=== PATIENT | male | born 1945 | race Caucasian/White ===

== ENCOUNTER 2022-12-01 10:02 | Emergency (ER) | payer BC ==
[~2022-12-01] VITALS: Ht 167.6 cm; Wt 71.5 kg
[2022-12-01] MEDS ORDERED: cloNIDine HCL 0.1 MG TAB PO ONE (10:15)
[2022-12-01 10:47] VITALS: RESP 18; TEMP 97.6
[2022-12-01 11:35] VITALS: BP 176/84; PULSE 52; O2SAT 97
[2022-12-01] MEDS ORDERED: AMOX875T4 PO (11:39)
== END 2022-12-01 11:46 | disposition home or self-care (01) ==
LOC: ER 10:02
DX: H66.91 Otitis media, unspecified, right ear (principal); I10 Essential (primary) hypertension; E78.5 Hyperlipidemia, unspecified; F17.210 Nicotine dependence, cigarettes, uncomplicated

== ENCOUNTER 2023-10-12 07:05 | Emergency (ER) | payer BC ==
[~2023-10-12] VITALS: Ht 167.6 cm; Wt 71.8 kg
[~2023-10-12 07:05] MED LIST: AMOX875T4 PO
[2023-10-12 08:56] LABS: Rapid Influenza A Negative (Negative); Rapid Influenza B Negative (Negative)
[2023-10-12 09:10] VITALS: BP 155/83; PULSE 55; RESP 16; TEMP 97.9; O2SAT 96
[2023-10-12 09:14] LABS: Rapid Strep A Screen-Throat Negative
[2023-10-12 09:15] LABS: Chloride 107 mmol/L (98-107); Potassium 3.3 mmol/L (3.5-5.1); Sodium 143 mmol/L (136-145)
[2023-10-12 09:15] LABS: COVID19 ANTIGEN SOFIA FIA NEGATIVE (NEGATIVE)
[2023-10-12 09:16] LABS: Anion Gap 5 (5-15); Calcium 10.1 mg/dL (8.5-10.1); Carbon Dioxide 31 mmol/L (20-30)
[2023-10-12 09:20] LABS: Basophils # (auto) 0 10 ^3/uL (0-0.2); Basophils % (auto) 0.6 % (0.0-2.0); Eosinophils # (auto) 0.1 10 ^3/uL (0-0.8); Eosinophils % (auto) 1.8 % (0.0-7.0); Hematocrit 43.2 % (41.0-53.0); Hemoglobin 15.4 g/dL (13.5-17.5); Lymphocytes # (auto) 1.2 10 ^3/uL (0.4-5.4); Lymphocytes % (auto) 21.7 % (10.0-50.0); Mean Corpuscular Hemoglobin 32.9 pg (28.0-32.0); Mean Corpuscular Hgb Conc. 35.6 g/dL (32.0-36.0); Mean Corpuscular Volume 92.5 fL (80.0-100.0); Monocytes # (auto) 0.4 10 ^3/uL (0-1.3); Monocytes % (auto) 6.7 % (0.0-12.0); Neutrophils # (auto) 3.7 10 ^3/uL (1.6-8.6); Neutrophils % (auto) 69.2 % (37.0-80.0); Nucleated Red Blood Cells % 0.1 %; Red Blood Cells 4.67 10^6/uL (4.5-5.90); Red Cell Distribution Width 13.8 % (11.8-14.3); White Blood Cell 5.4 10^3/uL (4.4-10.8)
[2023-10-12 09:21] LABS: BUN/Creatinine Ratio 9.4 (10.0-20.0); Blood Urea Nitrogen 13 mg/dL (9-23); Glucose 101 mg/dL (74-106)
[2023-10-12] MEDS ORDERED: PRED20TA2 PO (09:36)
[2023-10-12] MEDS ORDERED: AUG875T PO (09:36)
[2023-10-12] MEDS: POTASSIUM CHL 20 Meq TABLET PO ONE (09:46)
[2023-10-12] MEDS: cefTRIAXone SOD 1,000 MG VL IM ONE (09:46)
== END 2023-10-12 09:47 | disposition home or self-care (01) ==
LOC: ER 07:05
DX: J01.90 Acute sinusitis, unspecified (principal); J20.9 Acute bronchitis, unspecified; J03.90 Acute tonsillitis, unspecified; E78.5 Hyperlipidemia, unspecified; I10 Essential (primary) hypertension; F17.210 Nicotine dependence, cigarettes, uncomplicated; Z20.822 Contact with and (suspected) exposure to COVID-19
CPT/HCPCS: 36415; 71046; 80048; 85025; 87070; 87426; 87804; 87880; 96372; 99284; J0696

== ENCOUNTER 2024-03-04 07:33 | Inpatient (IN) | payer MEDICARE, BC ==
[~2024-03-04] VITALS: Ht 167.6 cm; Wt 70.0 kg
[~2024-03-04 07:33] MED LIST changes: +AUG875T PO; +CHOL500046 PO; +METO25TA93 PO; +POTA-36 PO; +PRED20TA2 PO
--- NOTE | 2024-03-04 07:57 | ED.PDOC ---
HPI Comments 78-year-old male presents with a chief complaint of lightheadedness and shakiness s/p HTN. Patient states that for the past x 3 weeks his BP has been fluctuating from high to low and he has been feeling lightheaded from it. Patient reports that he took x 2 of his 100mg Hydralazine this morning at 0600 and it dropped his BP from 200 systolic to 194 systolic. Patient also mentions that he has been taking more of his clonidine. Patient denies any active chest pain at this time or any pain. No other symptoms or modifying factors present at this time. Chief Complaint: High Blood Pressure Time Seen by MD: 07:48 Primary Care Provider: JONAH Alonso Notes: Medications, Allergies Allergies: Coded Allergies: No Known Drug Allergy (Verified Allergy, Unknown, 12/01/22) Home Meds Active Scripts Prednisone (Prednisone) 20 Mg Tab, 60 MG PO DAILY, #15 TAB Prov:JANNETH ALLAN 10/12/23 Amoxicillin & Pot Clavulanate (AUGMENTIN TABLET) 875 Mg Tb, 875 MG PO BID, #20 TAB Prov:JANNETH ALLAN 10/12/23 Amoxicillin & Pot Clavulanate (Amoxicillin/Potassium Cla) 875 Mg Tab, 1 TAB PO BID, #20 TAB Prov:JANNETH ALLAN 12/01/22 Information Source: Patient Mode of Arrival: Ambulatory Severity: Moderate Timing: Days Duration: Intermittent Prehospital treatment: None Cardiac Risk Factors: HTN PE Risk Factors: None History of: None Past Medical History PAST MEDICAL HISTORY: High Lipids, HTN Surgical History: Denies all surgeries Family History Family History: Reviewed,noncontributory to illness, Family hx of DM, Family hx of Cancer Social History Smoker: Cigarettes Alcohol: Occasionally Drugs: Denies Drug Use Lives In: Home Constitutional: denies: chills, diaphoresis, fatigue, fever, malaise, sweats, weakness, others EENTM: denies: blurred vision, double vision, ear bleeding, ear discharge, ear drainage, ear pain, ear ringing, eye pain, eye redness, hearing loss, mouth pain, mouth swelling, nasal discharge, nose bleeding, nose congestion, nose pain, photophobia, tearing, throat pain, throat swelling, voice changes, others Respiratory: denies: cough, hemoptysis, orthopnea, SOB at rest, shortness of breath, SOB with excertion, stridor, wheezing, others Cardiovascular: reports: lightheadedness; denies: chest pain, dizzy spells, diaphoresis, Dyspnea on exertion, edema, irregular heart beat, left arm pain, palpitations, PND, syncope, others Gastrointestinal: denies: abdomen distended, abdominal pain, blood streaked bowels, constipated, diarrhea, dysphagia, difficulty swallowing, hematemesis, melena, nausea, poor appetite, poor fluid intake, rectal bleeding, rectal pain, vomiting, others Genitourinary: denies: burning, dysuria, flank pain, frequency, hematuria, incontinence, penile discharge, penile sore, pain, testicle pain, testicle swelling, urgency, others Neurological: denies: dizziness, fainting, headache, left sided numbness, left sided weakness, numbness, paresthesia, pre-existing deficit, right sided numbness, right sided weakness, seizure, speech problems, tingling, tremors, weakness, others Musculoskeletal: denies: back pain, gout, joint pain, joint swelling, muscle pain, muscle stiffness, neck pain, others Integumetry: denies: bruises, change in color, change in hair/nails, dryness, laceration, lesions, lumps, rash, wounds, others Allergic/Immunocompromised: denies: Difficulty Healing, Frequent Infections, Hives, Itching, others Hematologic/Lymphatic: denies: anemia, blood clots, easy bleeding, easy bruising, swollen glands, others Endocrine: denies: excessive hunger, excessive sweating, excessive thirst, excessive urination, flushing, intolerance to cold, intolerance to heat, unexplained weight gain, unexplained weight loss, others Psychiatric: denies: anxiety, bipolar disorder, depression, hopeless, panic disorder, schizophrenia, sleepless, suicidal, others All Other Systems: Reviewed and Negative Physical Exam General Appearance: No Apparent Distress, Normal HEENT: Normal ENT Inspection, Pharynx Normal, TMs Normal Neck: Full Range of Motion, Non-Tender, Normal, Normal Inspection Respiratory: Chest Non-Tender, Lungs Clear, No Accessory Muscle Use, No Respiratory Distress, Normal Breath Sounds Cardiovascular: No Edema, No JVD, No Murmur, No Gallop, Normal Peripheral Pulses, Regular Rate/Rhythm Breast Exam: Deferred Gastrointestinal: No Organomegaly, Non Tender, No Pulsatile Mass, Normal Bowel Sounds, Soft Genitalia: Deferred Pelvic: Deferred Rectal: Deferred Extremities: No calf tenderness, Normal capillary refill, Normal inspection, Normal range of motion, Non-tender, No pedal edema Musculoskeletal : Apperance: Normal Neurologic: Alert, manager balance II-XII nml as Tested, No Motor Deficits, Normal Affect, Normal Mood, No Sensory Deficits Cerebellar Function: Normal Reflexes: Normal Skin: Dry, Normal Color, Warm Lymphatic: No Adenopathy Was a procedure done? Was a procedure done?: No CP Differential Dx Differential Diagnosis: Electrolyte Disorder, Heart Failure, MAT, PAC's, PVC's, V-Tach, WPW Differential Diagnosis: HTN Essential, HTN Accelerated Differential Diagnosis: Gastritis, Myocardial Infarction, Pericarditis, Pneu monia X-Ray, Labs, Meds, VS Vital Signs Date Time Temp Pulse Resp B/P (MAP) Pulse Ox O2 Delivery O2 Flow Rate FiO2 03/04/24 10:43 88 03/04/24 10:35 80 13 181/94 (123) 94 03/04/24 09:30 80 13 97 Room Air* 0 21 03/04/24 09:29 80 13 203/86 (125) 97 03/04/24 09:08 51 19 174/82 (112) 98 03/04/24 08:47 55 19 174/108 (130) 98 03/04/24 08:43 80 03/04/24 07:50 100 03/04/24 07:45 99.0 100 18 204/98 (133) 98 194/76 (115) Lab Test 03/04/24 09:06 03/04/24 08:05 Range/Units Troponin I High Sensitivity 7 7 </=54 ng/L White Blood Count 6.6 4.4-10.8 10^3/uL Red Blood Count 4.88 4.5-5.90 10^6/uL Hemoglobin 16.2 13.5-17.5 g/dL Hematocrit 45.9 41.0-53.0 % Mean Corpuscular Volume 94.0 80.0-100.0 fL Mean Corpuscular Hemoglobin 33.1 H 28.0-32.0 pg Mean Corpuscular Hemoglobin Concent 35.2 32.0-36.0 g/dL Red Cell Distribution Width 13.2 11.8-14.3 % Platelet Count 229 140-450 10^3/uL Mean Platelet Volume 8.1 6.9-10.8 fL Neutrophils (%) (Auto) 61.1 37.0-80.0 % Lymphocytes (%) (Auto) 30.7 10.0-50.0 % Monocytes (%) (Auto) 6.0 0.0-12.0 % Eosinophils (%) (Auto) 1.6 0.0-7.0 % Basophils (%) (Auto) 0.6 0.0-2.0 % Neutrophils # (Auto) 4.0 1.6-8.6 10 ^3/uL Lymphocytes # (Auto) 2.0 0.4-5.4 10 ^3/uL Monocytes # (Auto) 0.4 0-1.3 10 ^3/uL Eosinophils # (Auto) 0.1 0-0.8 10 ^3/uL Basophils # (Auto) 0 0-0.2 10 ^3/uL Nucleated Red Blood Cells 0.1 % Sodium Level 143 136-145 mmol/L Potassium Level 2.8 L 3.5-5.1 mmol/L Chloride Level 105 98-107 mmol/L Carbon Dioxide Level 29 20-31 mmol/L Anion Gap 9 5-15 Blood Urea Nitrogen 15 9-23 mg/dL Creatinine 1.46 H 0.700-1.30 mg/dL Glomerular Filtration Rate Calc 49 >90 mL/min BUN/Creatinine Ratio 10.3 10.0-20.0 Serum Glucose 112 H 74-106 mg/dL Calcium Level 11.2 H 8.7-10.4 mg/dL Time of 1ST Reevaluation: 08:18 Reevaluation 1ST: Unchanged Patient Education/Counseling: Diagnosis, Treatment, Prognosis Family Education/Counseling: No Family Present Departure 1 Departure Time of Disposition: 11:17 (Patient presented with hypertension and symptoms concerning for hypertensive emergency. Patient is receiving iv blood pressure medications requiring intensive monitoring. Data: 1. I ordered and reviewed the result of at least 3 labs including a CBC, BMP, and Urinalysis. 2. I independently interpreted the following tests: CT Brain: Which appears benign. EKG which is sinus arrhythmiaRisk:This patient has a high risk of morbidity due to further diagnostic testing or treatment and may suffer from an acute cardiac disorder. Workup reveals hypertensive emergency and patient should be admitted for further workup. and possible expert consultation. ) Impression: Primary Impression: Hypertensive urgency Additional Impressions: Acute chest pain Abnormal EKG Disposition: ADMITTED INPATIENT Admit to: Tele Condition: Guarded Critical Care Note Critical Care Time?: Yes Critical care comment: Acute chest pain Authorized and Performed by: Dean Gifford MD Total critical care time: Approximately 42 minutes Due to a high probability of clinically significant, life threatening deterioration, the patient required my highest level of preparedness to intervene emergently and I personally spent this critical care time directly and personally managing the patient. This critical care time included obtaining a history; examining the patient; pulse oximetry; ordering and review of studies; arranging urgent treatment with development of a management plan; evaluation of patient's response to treatment; frequent reassessment; and, discussions with other providers. This critical care time was performed to assess and manage the high probability of imminent, life-threatening deterioration that could result in multi-organ failure. It was exclusive of separately billable procedures and treating other patients and teaching time. Please see my other sections and the rest of the note for further information on patient assessment and treatment. Stability Stability form required: No Heart Score Heart Score: Heart Score Response (Comments) Value History Moderate Suspicious [address]-Deviation 2 Age >65 2 Risk Factors >3 or Hx ASHD 2 Troponin Normal limit 0 Total 7 I personally scribed for EDAN GIFFORD MD ([email or web address]) on 03/04/24 at 07:57. Electronically submitted by Prasad Miller ([email or web address]). DEAN GIFFORD MD Mar 04, 2024 07:57
--- NOTE | 2024-03-04 08:28 | DVH ---
EXAM: XY CHEST TWO VIEWS ROUTINE CLINICAL HISTORY: high blood pressure COMPARISON: XY CHEST TWO VIEWS ROUTINE on DOS: 10/12/23 TECHNIQUE: Frontal and lateral view of the chest was obtained FINDINGS: Lines and Tubes: None Lungs: No focal consolidation. Pleura: No effusion. No pneumothorax. Cardiomediastinal contours: Unremarkable Bones: No acute osseous abnormality. IMPRESSION: 1. No acute cardiopulmonary disease. HS:Y
[2024-03-04 08:31] LABS: Basophils # (auto) 0 10 ^3/uL (0-0.2); Basophils % (auto) 0.6 % (0.0-2.0); Eosinophils # (auto) 0.1 10 ^3/uL (0-0.8); Eosinophils % (auto) 1.6 % (0.0-7.0); Hematocrit 45.9 % (41.0-53.0); Hemoglobin 16.2 g/dL (13.5-17.5); Lymphocytes % (auto) 30.7 % (10.0-50.0); Mean Corpuscular Hemoglobin 33.1 pg (28.0-32.0); Mean Corpuscular Hgb Conc. 35.2 g/dL (32.0-36.0); Monocytes # (auto) 0.4 10 ^3/uL (0-1.3); Neutrophils % (auto) 61.1 % (37.0-80.0); Nucleated Red Blood Cells % 0.1 %; Platelet Count (auto) 229 10^3/uL (140-450); Red Blood Cells 4.88 10^6/uL (4.5-5.90); Red Cell Distribution Width 13.2 % (11.8-14.3); White Blood Cell 6.6 10^3/uL (4.4-10.8)
[2024-03-04 08:36] LABS: Chloride 105 mmol/L (98-107); Potassium 2.8 mmol/L (3.5-5.1); Sodium 143 mmol/L (136-145)
[2024-03-04 08:37] LABS: Anion Gap 9 (5-15); Carbon Dioxide 29 mmol/L (20-31)
[2024-03-04 08:38] LABS: Calcium 11.2 mg/dL (8.7-10.4)
--- NOTE | 2024-03-04 08:39 | DVH ---
EXAM: CT HEAD WITHOUT CONTRAST HISTORY: high blood pressure, near syncope COMPARISON: CT HEAD WITHOUT CONTRAST on DOS: 11/02/22, CT CERVICAL WITHOUT CONTRAST on DOS: 11/02/22 TECHNIQUE: Axial images of the head were obtained and reformatted in coronal and sagittal planes. All CT scans at this medical facility are performed using dose modulation techniques as appropriate t o a performed exam including the following: Automated exposure control was utilized; adjustment of th e MA and/or KV according to patient size; and use of iterative reconstruction technique. CT Dose: CTDI volume is 64.67 mGy. Dose-length product is 1144.88 mGy*cm FINDINGS: There is no evidence of acute intracranial hemorrhage, mass, mass effect midline shift. There is no h ydrocephalus or extra-axial fluid collection. There are patchy hypodense areas in the supratentorial white matter compatible with chronic microvascular ischemic changes. Dejesus-white matter differentiatio n is maintained.. There is complete opacification of the right mastoid air cells. The visualized paranasal sinuses and left mastoid air cells are clear. The calvarium is intact. IMPRESSION: 1. No acute intracranial process. 2. Complete opacification right mastoid air cells. HS:Y
[2024-03-04 08:42] LABS: BUN/Creatinine Ratio 10.3 (10.0-20.0); Blood Urea Nitrogen 15 mg/dL (9-23); Glucose 112 mg/dL (74-106)
[2024-03-04 09:30] VITALS: PULSE 80; RESP 13; O2SAT 97
--- NOTE | 2024-03-04 10:38 | ECG ---
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
[2024-03-04] MEDS ORDERED: LORazepam 0.5 MG TAB PO PRN (11:30)
[2024-03-04] MEDS ORDERED: ACETAMINOPHEN 325 MG TAB PO PRN (11:30)
[2024-03-04] MEDS ORDERED: ONDANSETRON HCL 4 MG/2 ML VIAL IV PRN (11:30)
[2024-03-04] MEDS ORDERED: ZOLPIDEM TARTRATE 5 MG TAB PO PRN (11:30)
[2024-03-04] MEDS: POTASSIUM CHL 20 Meq TABLET PO ONE (11:58)
[2024-03-04] MEDS: hydrALAZINE HCL 20 MG/ML VL IV ONE (12:04)
--- NOTE | 2024-03-04 12:06 | DVHHP2 ---
History of Present Illness Reason for Visit: HTN Urgency History of Present Illness 78 yo with HTN, HLD patient with multiple complaints including weakness patient on initial evaluation was having elevated pressures was placed on iv meds to control the blood pressure patient states that he has been on clonidine and his pressures have been extremely high then extremely low making him dizzy and weak Cardiovascular: HTN, hyperipidemia Review of Systems Constitutional: Yes: Weakness; No: Fever, Chills, Sweats, Malaise, Other Eyes: No: Pain, Vision change, Conjunctivae inflammation, Eyelid inflammation, Other, Redness ENT: No: Ear pain, Ear discharge, Nose pain, Nose discharge, Nose congestion, Mouth pain, Mouth swelling, Throat pain, Throat swelling, Other Respiratory: No: Cough, Dry, Shortness of breath, SOB with excertion, Wheezing, Hemoptysis, Pleuritic Pain, Sputum, Wheezing, Other Cardiovascular: No: Chest Pain, Palpitations, Orthopnea, Paroxysmal Noc. Dyspnea, Edema, Lt Headedness, Other Gastrointestinal: No: Nausea, Vomiting, Abdominal Pain, Diarrhea, Constipation, Melena, Hematochezia, Other Genitourinary: No Dysuria, No Frequency, No Incontinence, No Hematuria, No Retention, No Other Musculoskeletal: No: other, neck pain, shoulder pain, arm pain, back pain, hand pain, leg pain, foot pain Skin: No: Rash, Lesions, Jaundice, Bruising, Other Neurological: Weakness; No: Numbness, Incoordination, Change in speech, Confusion, Seizures, Other Allergies: Coded Allergies: No Known Drug Allergy (Verified Allergy, Unknown, 12/01/22) Medications Current Medications Medications Dose Ordered Sig/[facility] Route Start Time Stop Time Status Last Admin Dose Admin Aspirin 81 mg DAILY PO 03/05/24 10:00 Clopidogrel Bisulfate 75 mg DAILY PO 03/05/24 10:00 Atorvastatin Calcium 40 mg HS PO 03/04/24 22:00 Carvedilol 6.25 mg Q12HR PO 03/04/24 22:00 Acetaminophen 650 mg Q6HP PRN PO 03/04/24 11:30 Zolpidem Tartrate 5 mg QHSP PRN PO 03/04/24 11:30 Lorazepam 0.5 mg Q6HP PRN PO 03/04/24 11:30 Docusate Sodium 100 mg DAILY PO 03/05/24 10:00 Ondansetron HCl 4 mg Q4HP PRN IV 03/04/24 11:30 Lisinopril 10 mg DAILY PO 03/05/24 10:00 Hydralazine HCl 50 mg Q8HR PRN PO 03/04/24 11:30 Exam Vital Signs Vital Signs Date Time Temp Pulse Resp B/P (MAP) Pulse Ox O2 Delivery O2 Flow Rate FiO2 03/04/24 10:43 88 03/04/24 10:35 13 181/94 (123) 94 03/04/24 09:30 Room Air* 0 21 03/04/24 07:45 99.0 General Appearance: Alert, Oriented X3, mild distress HEENT: Atraumatic, PERRLA Cardiovascular: Regular rate, Normal S1, Normal S2 Abdominal: Normal bowel sounds, Soft Extremities: No clubbing, No cyanosis Skin: No rashes, No breakdown Neuro: Normal gait, Normal speech Psych/Mental Status: Mood NL Labs/Xrays Labs Test 03/04/24 11:18 03/04/24 08:05 Range/Units White Blood Count 6.6 4.4-10.8 10^3/uL Red Blood Count 4.88 4.5-5.90 10^6/uL Hemoglobin 16.2 13.5-17.5 g/dL Hematocrit 45.9 41.0-53.0 % Mean Corpuscular Volume 94.0 80.0-100.0 fL Mean Corpuscular Hemoglobin 33.1 H 28.0-32.0 pg Mean Corpuscular Hemoglobin Concent 35.2 32.0-36.0 g/dL Red Cell Distribution Width 13.2 11.8-14.3 % Platelet Count 229 140-450 10^3/uL Mean Platelet Volume 8.1 6.9-10.8 fL Neutrophils (%) (Auto) 61.1 37.0-80.0 % Lymphocytes (%) (Auto) 30.7 10.0-50.0 % Monocytes (%) (Auto) 6.0 0.0-12.0 % Eosinophils (%) (Auto) 1.6 0.0-7.0 % Basophils (%) (Auto) 0.6 0.0-2.0 % Neutrophils # (Auto) 4.0 1.6-8.6 10 ^3/uL Lymphocytes # (Auto) 2.0 0.4-5.4 10 ^3/uL Monocytes # (Auto) 0.4 0-1.3 10 ^3/uL Eosinophils # (Auto) 0.1 0-0.8 10 ^3/uL Basophils # (Auto) 0 0-0.2 10 ^3/uL Nucleated Red Blood Cells 0.1 % Sodium Level 143 136-145 mmol/L Potassium Level 2.8 L 3.5-5.1 mmol/L Chloride Level 105 98-107 mmol/L Carbon Dioxide Level 29 20-31 mmol/L Anion Gap 9 5-15 Blood Urea Nitrogen 15 9-23 mg/dL Creatinine 1.46 H 0.700-1.30 mg/dL Glomerular Filtration Rate Calc 49 >90 mL/min BUN/Creatinine Ratio 10.3 10.0-20.0 Serum Glucose 112 H 74-106 mg/dL Calcium Level 11.2 H 8.7-10.4 mg/dL Assessment/Plan Assessment/Plan Admit Med/ Surge HTN Urgency HTN with rebound symptoms Clonidine with suspected rebound PRN BP meds elevated CR CT negative for stroke with dizziness complaints CXR neg for signs fluid overload DM within range sliding scale mild Plan discussed with: Patient My Orders Orders - ANI HARRIS MD Procedure Category Date Status Time Admit ADMIT 03/04/24 Transmitted 11:30 Code Status CODE 03/04/24 Transmitted 11:30 Vital Signs MARCELA 03/04/24 In Process 11:30 Cardiac DIET 03/04/24 Transmitted Diet-2gna,Lofat,Lochol Lunch Aspirin Tablet PHA 03/05/24 In Process 10:00 Clopidogrel Bisulfate PHA 03/05/24 In Process (Plavix) 10:00 Atorvastatin (Lipitor) PHA 03/04/24 In Process 22:00 Carvedilol Tablet PHA 03/04/24 In Process (Coreg Tablet) 22:00 Acetaminophen Tablet PHA 03/04/24 In Process (Tylenol Tablet) 11:30 Zolpidem Tartrate PHA 03/04/24 In Process (Ambien) 11:30 Lorazepam Tablet PHA 03/04/24 In Process (Ativan Tablet) 11:30 Docusate Sodium PHA 03/05/24 In Process Capsule (Colace 10:00 Complete Blood Count LAB 03/05/24 Verified 04:00 Basic Metabolic Panel LAB 03/05/24 Verified 04:00 Ondansetron Hcl PHA 03/04/24 In Process (Zofran) 11:30 Electrocardigram EKG 03/04/24 Logged 11:30 Lisinopril Tablet PHA 03/05/24 In Process (Zestril Tablet) 10:00 Notify Md Of Changes MARCELA 03/04/24 In Process From Base 11:30 Oxygen By Nasal RT 03/04/24 Transmitted Cannula 11:30 Electrocardigram EKG 03/04/24 Logged 14:30 Troponin-I Hs LAB 03/04/24 Logged 14:30 Hydralazine Hcl PHA 03/04/24 In Process Tablet (Apresoline 11:30 Problem List: (1) Hypertensive urgency (2) Acute chest pain (3) Uncontrolled hypertension Date of Service: Mar 04, 2024 Billing Provider: ANI HARRIS MD Common Visit Codes: [id number] INP/OBS CARE (HIGH) ANI HARRIS MD Mar 04, 2024 12:06
--- NOTE | 2024-03-04 12:33 | ECG ---
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
--- NOTE | 2024-03-04 12:33 | ECG ---
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
[2024-03-04] MEDS: hydrALAZINE HCL 25 MG TAB PO PRN (15:17)
[2024-03-04 16:41] VITALS: PULSE 49; RESP 14; O2SAT 97
[2024-03-04] MEDS ORDERED: CLON0.1T PO (17:45)
[2024-03-04] MEDS ORDERED: HYDR100T10 PO (17:45)
[2024-03-04] MEDS ORDERED: LISI40TA16 PO (17:47)
[2024-03-04] MEDS ORDERED: LOVA40TA72 PO (17:47)
[2024-03-04] MEDS ORDERED: HYDR25TA5 PO (17:47)
[2024-03-04] MEDS ORDERED: DILT-14 PO (17:47)
[2024-03-04] MEDS: CARVEDILOL 3.125 MG TAB PO SCH (21:27)
[2024-03-04] MEDS: hydrALAZINE HCL 20 MG/ML VL IV PRN (21:28)
[2024-03-04] MEDS: ATORVASTATIN 20 MG TAB PO SCH (21:28)
[2024-03-04 22:00] VITALS: BP 148/72; PULSE 64; RESP 18; TEMP 98; O2SAT 97
[2024-03-04 23:30] VITALS: PULSE 64; RESP 18
[2024-03-04 23:34] VITALS: PULSE 64; RESP 18; O2SAT 97
[2024-03-04 23:53] LABS: Urine Bacteria None Seen /hpf (None Seen)
[2024-03-05] VITALS (8 sets, daily range): BP systolic 151–164; BP diastolic 67–119; PULSE 50–73; RESP 18–19; TEMP 97.8–98.4; O2SAT 96
[2024-03-05 00:08] LABS: Urine Blood Negative /uL (Negative); Urine Clarity Clear (Clear); Urine Color Light-Yellow (Yellow); Urine Protein, UAD Negative (Negative); Urine Specific Gravity 1.007 (1.001-1.035); Urine Urobilinogen Normal (Negative); Urine WBC <1 /hpf (0 - 3); Urine pH 6.5 (5.0-9.0)
[2024-03-05 06:03] LABS: Basophils # (auto) 0 10 ^3/uL (0-0.2); Basophils % (auto) 0.5 % (0.0-2.0); Eosinophils # (auto) 0.1 10 ^3/uL (0-0.8); Hematocrit 43.6 % (41.0-53.0); Hemoglobin 15.6 g/dL (13.5-17.5); Lymphocytes # (auto) 1.3 10 ^3/uL (0.4-5.4); Lymphocytes % (auto) 17.1 % (10.0-50.0); Mean Corpuscular Hemoglobin 33.2 pg (28.0-32.0); Mean Corpuscular Hgb Conc. 35.9 g/dL (32.0-36.0); Mean Corpuscular Volume 92.7 fL (80.0-100.0); Monocytes # (auto) 0.5 10 ^3/uL (0-1.3); Monocytes % (auto) 7.3 % (0.0-12.0); Neutrophils # (auto) 5.6 10 ^3/uL (1.6-8.6); Neutrophils % (auto) 74.1 % (37.0-80.0); Nucleated Red Blood Cells % 0.2 %; Platelet Count (auto) 212 10^3/uL (140-450); Red Blood Cells 4.71 10^6/uL (4.5-5.90); Red Cell Distribution Width 13.3 % (11.8-14.3); White Blood Cell 7.6 10^3/uL (4.4-10.8)
[2024-03-05 06:10] LABS: Chloride 111 mmol/L (98-107); Potassium 3.7 mmol/L (3.5-5.1); Sodium 145 mmol/L (136-145)
[2024-03-05 06:11] LABS: Anion Gap 10 (5-15); Calcium 10.6 mg/dL (8.7-10.4); Carbon Dioxide 24 mmol/L (20-31)
[2024-03-05 06:16] LABS: BUN/Creatinine Ratio 11.7 (10.0-20.0); Blood Urea Nitrogen 16 mg/dL (9-23); Glucose 94 mg/dL (74-106)
[2024-03-05] MEDS: DOCUSATE SOD 100 MG CAP PO SCH (09:58)
[2024-03-05] MEDS: LISINOPRIL 5 MG TAB PO SCH (09:59)
[2024-03-05] MEDS: CLOPIDOGREL BISULFATE 75 MG TAB PO SCH (10:00)
[2024-03-05] MEDS: ASPirin 81 mg TAB PO SCH (10:00)
--- NOTE | 2024-03-05 13:25 | DVHSR ---
APPROVED REPORT EXAM: Two-dimensional and M-mode echocardiogram with Doppler and color Doppler. Blood Pressure: 159/76 mmHg INDICATION Hypertensive Emergency RISK FACTORS Height: 66, Weight: 158 DIMENSIONS LVDd5.1 (3.8-5.7cm)LA (2D)4.1 (1.9-4.0cm)Aortic Root3.7 (2.0-3.7cm) LVDs3.6 (2.5-4.0cm)LA (MM) (1.9-4.0cm)Aortic Cusp Exc1.6 (1.5-2.0cm) EF (%) 55.0 (55-70%)Rt. Atrium (1.9-4.0cm)Asc. Aorta cm IVSd1.1 (0.7-1.1cm)RV (D) (1.8-2.4cm) PWd1.1 (0.7-1.1cm) Mitral Valve MitralMitral Stenosis E wave0.68m/sMV Mean GR.mmHg A wave0.88m/sMV Peak GR.mmHg E/A ratio0.82D MVAcm2 DECEL [id number] 1/2 Timems Aortic Valve Aortic ValveAortic Stenosis V11.02m/Estiven Mean GR.6mmHg V21.69m/Estiven Peak GR.11mmHg LVOT Diameter2.2 (1.8-2.4cm)Doppler AVA2.29cm2 Pulmonic Valve V20.91m/s Other Information Technically limited study due to body habitus and patient breathing. Conclusion Normal left ventricular size and dimension. Normal left ventricular systolic function estimated ejec tion fraction 55%. There is a grade1 diastolic dysfunction. Normal right ventricular size and dimension. Normal right ventricular systolic function. Normal biatrial size and dimension. Normal aortic valve structure and function. Normal mitral valve structure and function. Normal tricuspid valve structure and function. The pulmonary valve is grossly normal. No pericardial effusion.
--- NOTE | 2024-03-05 15:30 | DVH ---
RENAL ULTRASOUND CLINICAL HISTORY: christo TECHNIQUE: Multiple ultrasound images of the kidneys and bladder were obtained. COMPARISON: [Comparison] FINDINGS: The right kidney measures 9.6 cm in length. The left kidney measures 10.4 cm. There are areas of delicia ical thinning / scarring in the right kidney. There is right renal hydronephrosis. There is left sid l pelviectasis. There is a 2 mm echogenic focus in the upper pole of the left kidney. A small calcul us is not excluded. The bladder appears within normal limits without significant post void residual. The calculated prost ate volume is 29 cc. IMPRESSION: 1. 2 mm echogenic focus in the upper pole of the left kidney. A small calculus is not excluded. 2. There is right renal hydronephrosis. There is left renal pelviectasis. 3. There is cortical thinning / scarring in the right kidney. HS:Y
--- NOTE | 2024-03-05 19:04 | DVHPNRES ---
Progress Note Date Seen: Mar 05, 2024 Resident Creating Document: EDWINA CORRAL RESIDENT Has the PT tested + for MRSA If YES, has PT been informed?: No Medical Necessity Reason Pt with a Central, PICC or Fol: No Subjective Review of Systems A 78 old with past medical history of hypertension hyperlipidemia BPH who came to the ED due to elevated blood pressure patient has blood cuff at home and he said that he saw the blood pressure at 220/100. Patient denies chest pain, headache, shortness of bread. Patient states mild dizziness and weakness Home medication clonidine per needed end diltiazem 120 mg hydrochlorothiazide 25 daily hydralazine 100 mg t.i.d. lisinopril 4 mg daily lovastatin 4 mg Patient is active smoking Objective vital signs Vital Sign Date Time Temp Pulse Resp B/P (MAP) Pulse Ox O2 Delivery O2 Flow Rate FiO2 03/05/24 16:49 97.8 53 19 164/119 (134) 96 97.8 03/05/24 08:00 Room Air* 0 21 Total Intake and Output 03/04/24 03/04/24 03/05/24 15:00 23:00 07:00 Intake Total 50 ml Balance 50 ml medications Current Medications Medications Dose Ordered Sig/Kika Route Start Time Stop Time Status Last Admin Dose Admin Atorvastatin Calcium 40 mg HS PO 03/04/24 22:00 03/04/24 21:28 40 MG Acetaminophen 650 mg Q6HP PRN PO 03/04/24 11:30 Zolpidem Tartrate 5 mg QHSP PRN PO 03/04/24 11:30 Lorazepam 0.5 mg Q6HP PRN PO 03/04/24 11:30 Docusate Sodium 100 mg DAILY PO 03/05/24 10:00 03/05/24 09:58 100 MG Ondansetron HCl 4 mg Q4HP PRN IV 03/04/24 11:30 Lisinopril 10 mg DAILY PO 03/05/24 10:00 03/05/24 09:59 10 MG Hydralazine HCl 100 mg Q8HR PO 03/05/24 22:00 Hydrochlorothiazide 25 mg DAILY PO 03/06/24 10:00 Carvedilol 3.125 mg Q12HR PO 03/06/24 10:00 Examination Gen - no pallor, no icterus, no cyanosis, no clubbing, no LAD, no edema . Skin - Patients skin is warm and dry.. HEENT - normocephalic, atraumatic, moist mucous membranes. Neck - full ROM, no LAD, JVP waveform is not seen. Pulmonary - B/L vesicular breath sounds. no crackles , no wheezing, no stridor. cardiovascular - normal S1,S2 heard. no murmurs heard. peripheral pulses normal radial 2+, pedal 2+. capillary refill normal <2 secs. GI - soft abdomen with tenderness to palpation in the right and the left iliac regions. no tenderness to deep palpation . no hepatospleenomegaly. Neurological - Patient is A/O X 3 . Bilateral upper extremity strength 5/5, bilateral lower extremity strength 5/5, no facial droop, normal speech, no tremor, no sensory deficiets. laboratory and microbiology Laboratory Tests 03/05/24 05:40 Test 03/05/24 05:40 Range/Units Serum Glucose 94 74-106 mg/dL Problem List/Assessment/Plan Problem List/Assessment/Plan #Hypertensive emergency resolved Patient is on carvedilol 3.125 q.12h hydralazine 100 mg Q 8 hours hydrochlorothiazide 25 daily lisinopril 10 daily normal ECHO trops neg normal head ct scan #ELAYNE due to above #Possible CKD due to long standing hypertension #H/o BPH #Right renal hydronephrosis. #left renal pelviectasis Renal US: 1. 2 mm echogenic focus in the upper pole of the left kidney. A small calculus is not excluded. 2. There is right renal hydronephrosis. There is left renal pelviectasis. 3. There is cortical thinning / scarring in the right kidney. Bladder scan post void ordered #Hyperlipidiemia atorvastatin 40 mg #Hypercalcemia PTH and phosphorus ordered Case discussed with Dr Devonte Inman discussed with: Patient, Other (rn ) My Orders My Orders Orders - EDWINA CORRAL RESIDENT Procedure Category Date Status Time Echo 2d Mode Cardiac US 03/05/24 Resulted DOP 10:00 Hydralazine Hcl PHA 03/05/24 In Process Tablet (Apresoline 22:00 Hydrochlorothiazide PHA 03/06/24 In Process Tablet (Hydrochlorot 10:00 Kidney US 03/05/24 Resulted 14:18 Urine Sodium LAB 03/05/24 Logged 14:18 Urine LAB 03/05/24 Logged Protein/Creatinine Carvedilol Tablet PHA 03/06/24 In Process (Coreg Tablet) 10:00 Date of Service: Mar 05, 2024 Billing Provider: ENRRIQUE PATE MD Common Visit Codes: [id number] INP/OBS CARE(HIGH) Coding Comment Comment Attending Attestation I saw and evaluated the patient. I reviewed the residents note and agree with findings and plan as documented in the residents note except as documented below. Assessment and plan Hypertensive urgency, asymptomatic CKD BPH HLD resume home meds coreg 3.125, hydral 100 TID, HCTZ 25, lisinopril 10 increase coreg to 6.5, lisinopril 20 titrate up as tolerated avoid IV antihypertensive rest as per resident note EDWINA CORRAL RESIDENT Mar 05, 2024 19:04 ENRRIQUE PATE MD Mar 05, 2024 20:10
[2024-03-05 20:03] LABS: Alanine Aminotransferase 13 U/L (7-40); Alkaline Phosphatase 65 U/L (46-116); Anion Gap 8 (5-15); Aspartate Aminotransferase 30 U/L (13-40); BUN/Creatinine Ratio 11.9 (10.0-20.0); Bilirubin, Total 0.8 mg/dL (0.2-1.0); Blood Urea Nitrogen 18 mg/dL (9-23); Calcium 10.7 mg/dL (8.7-10.4); Carbon Dioxide 27 mmol/L (20-31); Chloride 109 mmol/L (98-107); Glucose 146 mg/dL (74-106); Potassium 3.4 mmol/L (3.5-5.1); Sodium 144 mmol/L (136-145)
[2024-03-05 20:43] LABS: Protein, Urine 18.8 mg/dL (1-14)
[2024-03-05 20:46] LABS: Creatinine, Urine 88.98 mg/dL (30.0-125.0); Urine Protein/Creatinine Ratio 0.21
[2024-03-05] MEDS: CARVEDILOL 3.125 MG TAB PO ONE (21:49)
[2024-03-05] MEDS: LISINOPRIL 5 MG TAB PO ONE (21:55)
[2024-03-05] MEDS ORDERED: POTASSIUM CHLORIDE 40 MEQ, LIDOCAINE 1% (LOCAL ANESTH.) 4 ML in SODIUM CHL 0.9% 250 ML IV ONE (22:00)
[2024-03-05] MEDS: hydrALAZINE HCL 25 MG TAB PO SCH (23:13)
[2024-03-05] MEDS: POTASSIUM CHL 20MEQ/100ML 100 ML IV ONE (23:33)
[2024-03-06] VITALS (7 sets, daily range): BP systolic 153–192; BP diastolic 80–104; PULSE 56–82; RESP 16–18; TEMP 97.5–98.4; O2SAT 94–97
[2024-03-06] MEDS: POTASSIUM CHL 20MEQ/100ML 100 ML IV ONE (01:34)
[2024-03-06 08:02] LABS: Basophils # (auto) 0.1 10 ^3/uL (0-0.2); Basophils % (auto) 0.8 % (0.0-2.0); Eosinophils # (auto) 0.1 10 ^3/uL (0-0.8); Eosinophils % (auto) 2.2 % (0.0-7.0); Hematocrit 42.9 % (41.0-53.0); Hemoglobin 15.1 g/dL (13.5-17.5); Lymphocytes # (auto) 1.5 10 ^3/uL (0.4-5.4); Lymphocytes % (auto) 22.2 % (10.0-50.0); Mean Corpuscular Hemoglobin 33.1 pg (28.0-32.0); Mean Corpuscular Hgb Conc. 35.2 g/dL (32.0-36.0); Mean Corpuscular Volume 94.1 fL (80.0-100.0); Monocytes # (auto) 0.4 10 ^3/uL (0-1.3); Monocytes % (auto) 5.8 % (0.0-12.0); Neutrophils # (auto) 4.6 10 ^3/uL (1.6-8.6); Platelet Count (auto) 193 10^3/uL (140-450); Red Blood Cells 4.56 10^6/uL (4.5-5.90); Red Cell Distribution Width 13.5 % (11.8-14.3); White Blood Cell 6.6 10^3/uL (4.4-10.8)
[2024-03-06 08:11] LABS: Alanine Aminotransferase 16 U/L (7-40); Alkaline Phosphatase 64 U/L (46-116); Anion Gap 8 (5-15); Aspartate Aminotransferase 31 U/L (13-40); BUN/Creatinine Ratio 11.5 (10.0-20.0); Blood Urea Nitrogen 16 mg/dL (9-23); Calcium 10.5 mg/dL (8.7-10.4); Carbon Dioxide 25 mmol/L (20-31); Chloride 110 mmol/L (98-107); Glucose 98 mg/dL (74-106); Potassium 3.7 mmol/L (3.5-5.1); Sodium 143 mmol/L (136-145)
[2024-03-06 08:12] LABS: Bilirubin, Total 0.9 mg/dL (0.2-1.0); Total Protein 5.9 g/dL (5.7-8.2)
[2024-03-06] MEDS: CARVEDILOL 3.125 MG TAB PO SCH (09:51)
[2024-03-06] MEDS: VALSARTAN 80 MG TAB PO SCH (09:52)
[2024-03-06] MEDS: hydroCHLOROthiazide 25 MG TAB PO SCH (09:52)
[2024-03-06] MEDS ORDERED: LISINOPRIL 20 MG TAB PO SCH (10:00)
[2024-03-06] MEDS ORDERED: CARVEDILOL 3.125 MG TAB PO SCH (10:00)
--- NOTE | 2024-03-06 13:35 | DVH ---
Procedure: CT CT AB PEL WO CON-NO ORAL OR IV 03/06/2024 12:31 PM Indication: HYDRONEPHROSIS Comparison Study: Ultrasound dated Technique: Axial images were obtained and reformatted in coronal and sagittal planes. All CT scans at this medical facility are performed using dose modulation techniques as appropriate t o a performed exam including the following: Automated exposure control was utilized; adjustment of th e MA and/or KV according to patient size; and use of iterative reconstruction technique. CT Dose: CTDI volume is 8.52 mGy. Dose-length product is 434.54 mGy*cm FINDINGS: Lower Chest: Bibasilar subsegmental atelectasis is noted. Hepatobiliary: A subcentimeter cyst seen in the left hepatic lobe. Spleen: Unremarkable. Pancreas: Unremarkable. Adrenal Glands: Unremarkable. tract: The kidneys are normal in size bilaterally . 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 There is mild left hydronephrosis and hydroureter likely due to vesicoureteral ref lux. Few subcentimeter nonobstructing bilateral renal calculi are noted bilaterally. Multiple renal c ysts are seen measuring up to 6.2 cm in the right kidney. The urinary bladder is moderately fluid dis tended. GI tract: The stomach is grossly normal in appearance. No evidence of small bowel obstruction. There is descending and sigmoid diverticulosis without diverticulitis. The appendix is normal. Lymphatics: No mesenteric, retroperitoneal or periportal lymphadenopathy. Vasculature: The abdominal aorta is normal in caliber. Diffuse calcified plaque formation is noted. Pelvic Organs: Prostate is mildly enlarged. Bones/soft tissues: Multilevel degenerative disc disease and posterior facet arthropathy of the lumba r spine noted. Several lucent lesions are seen in the vertebrae measuring up to 1 cm in L4. Other: None. IMPRESSION: 1. 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 No urinary calculi are seen. 2. Mild left hydronephrosis and hydroureter likely secondary to vesicoureteral reflux. 3. The urinary bladder is moderately distended extending above the level of umbilicus. Consider leigh terization. 4. Moderate prostatic hyperplasia. 5. Subcentimeter nonobstructive bilateral renal calculi. 6. Colonic diverticula without diverticulitis. Atherosclerotic disease. 7. Multilevel degenerative disc disease and posterior facet arthropathy of the lumbar spine. 8. Several indeterminate lucent lesions are seen in the vertebrae degenerative, hemangioma or lytic n eoplasm. Correlate with history of known malignancy. Further evaluation with lumbar spine MRI witho ut and with IV contrast could be completed if clinically warranted. Whole-body bone scan May also be helpful.
[2024-03-06] MEDS ORDERED: VALS1TAB57 PO (13:43)
[2024-03-06] MEDS ORDERED: CARV-214 PO (13:43)
[2024-03-06] MEDS ORDERED: PRAZ1CAP2 PO (13:43)
--- NOTE | 2024-03-06 18:13 | DVHPNRES ---
Progress Note Date Seen: Mar 06, 2024 Resident Creating Document: EDWINA CORRAL RESIDENT Has the PT tested + for MRSA If YES, has PT been informed?: No Medical Necessity Reason Pt with a Central, PICC or Fol: No Subjective Review of Systems A 78 old with past medical history of hypertension hyperlipidemia BPH who came to the ED due to elevated blood pressure patient has blood cuff at home and he said that he saw the blood pressure at 220/100. Patient denies chest pain, headache, shortness of bread. Patient states mild dizziness and weakness Home medication clonidine per needed end diltiazem 120 mg hydrochlorothiazide 25 daily hydralazine 100 mg t.i.d. lisinopril 4 mg daily lovastatin 4 mg Patient is active smoking Objective vital signs Vital Sign Date Time Temp Pulse Resp B/P (MAP) Pulse Ox O2 Delivery O2 Flow Rate FiO2 03/06/24 17:51 97.5 65 16 153/99 (117) 94 97.5 03/06/24 08:00 Room Air* 0 21 Total Intake and Output 03/05/24 03/05/24 03/06/24 15:00 23:00 07:00 Intake Total 1000 ml 700 ml Balance 1000 ml 700 ml medications Current Medications Medications Dose Ordered Sig/Kika Route Start Time Stop Time Status Last Admin Dose Admin Atorvastatin Calcium 40 mg HS PO 03/04/24 22:00 03/05/24 21:46 40 MG Acetaminophen 650 mg Q6HP PRN PO 03/04/24 11:30 Zolpidem Tartrate 5 mg QHSP PRN PO 03/04/24 11:30 Lorazepam 0.5 mg Q6HP PRN PO 03/04/24 11:30 Docusate Sodium 100 mg DAILY PO 03/05/24 10:00 03/05/24 09:58 100 MG Ondansetron HCl 4 mg Q4HP PRN IV 03/04/24 11:30 Hydralazine HCl 100 mg Q8HR PO 03/05/24 22:00 03/06/24 13:58 100 MG Hydrochlorothiazide 25 mg DAILY PO 03/06/24 10:00 03/06/24 09:52 25 MG Valsartan 320 mg DAILY PO 03/06/24 10:00 03/06/24 09:52 320 MG Prazosin HCl 1 mg Q12HR PO 03/06/24 22:00 Carvedilol 12.5 mg Q12HR PO 03/07/24 10:00 Examination Gen - no pallor, no icterus, no cyanosis, no clubbing, no LAD, no edema . Skin - Patients skin is warm and dry. HEENT - normocephalic, atraumatic, moist mucous membranes. Neck - full ROM, no LAD, JVP waveform is not seen. Pulmonary - B/L vesicular breath sounds. no crackles , no wheezing, no stridor. cardiovascular - normal S1,S2 heard. no murmurs heard. peripheral pulses normal radial 2+, pedal 2+. capillary refill normal <2 secs. GI - soft abdomen with tenderness to palpation in the right and the left iliac regions. no tenderness to deep palpation . no hepatospleenomegaly. Neurological - Patient is A/O X 3 . Bilateral upper extremity strength 5/5, bilateral lower extremity strength 5/5, no facial droop, normal speech, no tremor, no sensory deficits laboratory and microbiology Laboratory Tests 03/06/24 07:35 Test 03/06/24 07:35 Range/Units Serum Glucose 98 74-106 mg/dL Problem List/Assessment/Plan Problem List/Assessment/Plan #Hypertensive emergency resolving Patient is on carvedilol 12.5 q.12h hydralazine 100 mg Q 8 hours hydrochlorothiazide 25 daily valsartan 320 mg prazosin 1 mg 12h normal ECHO trops neg normal head ct scan #Possible CKD due to long standing hypertension #moderate BPH #Right renal hydronephrosis. 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 #Mild left hydronephrosis and hydroureter likely secondary to vesicoureteral reflux. #Several indeterminate lucent lesions are seen in the vertebrae degenerative, hemangioma or lytic neoplasm Renal US: 1. 2 mm echogenic focus in the upper pole of the left kidney. A small calculus is not excluded. 2. There is right renal hydronephrosis. There is left renal pelviectasis. 3. There is cortical thinning / scarring in the right kidney. Bladder scan post void: 325 cc Abdomen/ pelvis Ct scan ordered:1. 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 No urinary calculi are seen. 2. Mild left hydronephrosis and hydroureter likely secondary to vesicoureteral reflux. 3. The urinary bladder is moderately distended extending above the level of umbilicus. Consider catheterization. 4. Moderate prostatic hyperplasia. 5. Subcentimeter nonobstructive bilateral renal calculi. 6. Colonic diverticula without diverticulitis. Atherosclerotic disease. 7. Multilevel degenerative disc disease and posterior facet arthropathy of the lumbar spine. 8. Several indeterminate lucent lesions are seen in the vertebrae degenerative, hemangioma or lytic neoplasm. Correlate with history of known malignancy. Further evaluation with lumbar spine MRI without and with IV contrast could be completed if clinically warranted. Whole-body bone scan May also be helpful. Urology consulted #Hyperlipidiemia atorvastatin 40 mg #Hypercalcemia PTH normal Phosphorus normal Case discussed with Dr Pate Time spent on care 23 min Plan discussed with: Patient, Other (rn) My Orders My Orders Orders - EDWINA CORRAL RESIDENT Procedure Category Date Status Time Psa Total+% Free LAB 03/05/24 In Process 19:06 Bladder Scan ED NURSING 03/05/24 Transmitted Prazosin Hcl Capsule PHA 03/06/24 In Process (Minipres Capsule) 22:00 Ct Ab Pel Wo Con-No CT 03/06/24 Resulted Oral Or Iv 12:10 Date of Service: Mar 06, 2024 Billing Provider: ENRRIQUE PATE MD Common Visit Codes: [id number] INP/OBS CARE(HIGH) Coding Comment Comment Attending Attestation I saw and evaluated the patient. I reviewed the residents note and agree with findings and plan as documented in the residents note except as documented below. New patient with multiple possible lytic lesion seen in CT, we will consult Urology for possible biopsy to rule out prostate cancer. Prior history of BPH status post TURP EDWINA CORRAL RESIDENT Mar 06, 2024 18:13 ENRRIQUE PATE MD Mar 06, 2024 21:07
[2024-03-06] MEDS: PRAZOSIN HCL 1 MG CAP PO SCH (22:00)
[2024-03-06] MEDS: CARVEDILOL 3.125 MG TAB PO ONE (22:42)
[2024-03-07 05:00] VITALS: BP_SYST 147; BP_SYST 156; BP_DIAS 75; BP_DIAS 84; PULSE 72; PULSE 77; RESP 17; RESP 18; TEMP 97; TEMP 97.8; O2SAT 96; O2SAT 98
[2024-03-07 05:35] LABS: Basophils # (auto) 0 10 ^3/uL (0-0.2); Basophils % (auto) 0.3 % (0.0-2.0); Eosinophils # (auto) 0.1 10 ^3/uL (0-0.8); Eosinophils % (auto) 1.3 % (0.0-7.0); Hematocrit 39.9 % (41.0-53.0); Hemoglobin 14.4 g/dL (13.5-17.5); Lymphocytes # (auto) 1.1 10 ^3/uL (0.4-5.4); Lymphocytes % (auto) 16.6 % (10.0-50.0); Mean Corpuscular Hemoglobin 33.6 pg (28.0-32.0); Mean Corpuscular Hgb Conc. 36.1 g/dL (32.0-36.0); Mean Corpuscular Volume 93.1 fL (80.0-100.0); Monocytes # (auto) 0.3 10 ^3/uL (0-1.3); Monocytes % (auto) 4.5 % (0.0-12.0); Neutrophils # (auto) 5.2 10 ^3/uL (1.6-8.6); Neutrophils % (auto) 77.3 % (37.0-80.0); Nucleated Red Blood Cells % 0.1 %; Platelet Count (auto) 171 10^3/uL (140-450); Red Blood Cells 4.29 10^6/uL (4.5-5.90); Red Cell Distribution Width 13.3 % (11.8-14.3); White Blood Cell 6.7 10^3/uL (4.4-10.8)
[2024-03-07 06:01] LABS: Alanine Aminotransferase 15 U/L (7-40); Albumin 3.7 g/dL (3.2-4.8); Alkaline Phosphatase 61 U/L (46-116); Anion Gap 8 (5-15); Aspartate Aminotransferase 26 U/L (13-40); BUN/Creatinine Ratio 14.1 (10.0-20.0); Blood Urea Nitrogen 19 mg/dL (9-23); Carbon Dioxide 26 mmol/L (20-31); Chloride 107 mmol/L (98-107); Glucose 105 mg/dL (74-106); Potassium 3.5 mmol/L (3.5-5.1); Sodium 141 mmol/L (136-145)
[2024-03-07 06:03] LABS: Bilirubin, Total 0.8 mg/dL (0.2-1.0); Total Protein 5.6 g/dL (5.7-8.2)
[2024-03-07 08:06] LABS: PSA Free 2.02 ng/mL; Prostate Specific Antigen 9.2 ng/mL (0.0-4.0)
[2024-03-07 09:00] VITALS: BP 149/79; PULSE 72; RESP 16; TEMP 98.4; O2SAT 95
[2024-03-07] MEDS: CARVEDILOL 12.5 MG TAB PO SCH (10:45)
[2024-03-07 13:12] VITALS: BP 120/74; PULSE 78; RESP 16; TEMP 97.4; O2SAT 94
[2024-03-07] MEDS ORDERED: CARV-216 PO (14:00)
--- NOTE | 2024-03-07 14:16 | DVHPNRES ---
Progress Note Has the PT tested + for MRSA If YES, has PT been informed?: No Medical Necessity Reason Pt with a Central, PICC or Fol: No Objective vital signs Vital Sign Date Time Temp Pulse Resp B/P (MAP) Pulse Ox O2 Delivery O2 Flow Rate FiO2 03/07/24 13:12 97.4 78 16 120/74 (89) 94 97.4 03/07/24 08:00 Room Air* 0 21 Total Intake and Output 03/06/24 03/06/24 03/07/24 15:00 23:00 07:00 Intake Total 540 ml Output Total 1000 ml Balance 540 ml -1000 ml medications Current Medications Medications Dose Ordered Sig/Kika Route Start Time Stop Time Status Last Admin Dose Admin Atorvastatin Calcium 40 mg HS PO 03/04/24 22:00 03/06/24 22:41 40 MG Acetaminophen 650 mg Q6HP PRN PO 03/04/24 11:30 Zolpidem Tartrate 5 mg QHSP PRN PO 03/04/24 11:30 Lorazepam 0.5 mg Q6HP PRN PO 03/04/24 11:30 Docusate Sodium 100 mg DAILY PO 03/05/24 10:00 03/05/24 09:58 100 MG Ondansetron HCl 4 mg Q4HP PRN IV 03/04/24 11:30 Hydralazine HCl 100 mg Q8HR PO 03/05/24 22:00 03/07/24 06:18 100 MG Hydrochlorothiazide 25 mg DAILY PO 03/06/24 10:00 03/07/24 10:45 25 MG Valsartan 320 mg DAILY PO 03/06/24 10:00 03/07/24 10:45 320 MG Prazosin HCl 1 mg Q12HR PO 03/06/24 22:00 03/07/24 10:45 1 MG Carvedilol 12.5 mg Q12HR PO 03/07/24 10:00 03/07/24 10:45 12.5 MG Examination Gen - no pallor, no icterus, no cyanosis, no clubbing, no LAD, no edema . Skin - Patients skin is warm and dry. HEENT - normocephalic, atraumatic, moist mucous membranes. Neck - full ROM, no LAD, JVP waveform is not seen. Pulmonary - B/L vesicular breath sounds. no crackles , no wheezing, no stridor. cardiovascular - normal S1,S2 heard. no murmurs heard. peripheral pulses normal radial 2+, pedal 2+. capillary refill normal <2 secs. GI - soft abdomen with tenderness to palpation in the right and the left iliac regions. no tenderness to deep palpation . no hepatospleenomegaly. Neurological - Patient is A/O X 3 . Bilateral upper extremity strength 5/5, bilateral lower extremity strength 5/5, no facial droop, normal speech, no tremor, no sensory deficits laboratory and microbiology Laboratory Tests 03/07/24 05:15 Test 03/07/24 05:15 Range/Units Serum Glucose 105 74-106 mg/dL Problem List/Assessment/Plan Problem List/Assessment/Plan #Hypertensive emergency resolved Patient is on carvedilol 12.5 q.12h hydralazine 100 mg Q 8 hours hydrochlorothiazide 25 daily valsartan 320 mg prazosin 1 mg 12h normal ECHO trops neg normal head ct scan #Possible CKD due to long standing hypertension #moderate BPH #Right renal hydronephrosis. 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 #Mild left hydronephrosis and hydroureter likely secondary to vesicoureteral reflux. #Several indeterminate lucent lesions are seen in the vertebrae degenerative, hemangioma or lytic neoplasm #Rule out prostate cancer Renal US: 1. 2 mm echogenic focus in the upper pole of the left kidney. A small calculus is not excluded. 2. There is right renal hydronephrosis. There is left renal pelviectasis. 3. There is cortical thinning / scarring in the right kidney. Bladder scan post void: 325 cc Abdomen/ pelvis Ct scan ordered:1. 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 No urinary calculi are seen. 2. Mild left hydronephrosis and hydroureter likely secondary to vesicoureteral reflux. 3. The urinary bladder is moderately distended extending above the level of umbilicus. Consider catheterization. 4. Moderate prostatic hyperplasia. 5. Subcentimeter nonobstructive bilateral renal calculi. 6. Colonic diverticula without diverticulitis. Atherosclerotic disease. 7. Multilevel degenerative disc disease and posterior facet arthropathy of the lumbar spine. 8. Several indeterminate lucent lesions are seen in the vertebrae degenerative, hemangioma or lytic neoplasm. Correlate with history of known malignancy. Further evaluation with lumbar spine MRI without and with IV contrast could be completed if clinically warranted. Whole-body bone scan May also be helpful. Urology consulted: case was discussed with urology, they are going to see the patient today #Hyperlipidiemia atorvastatin 40 mg #Hypercalcemia PTH normal Phosphorus normal Case discussed with Dr Whitney Time spent on care 23 min My Orders My Orders Orders - EDWINA CORRAL Procedure Category Date Status Time * Urology Consult CONS 03/06/24 Transmitted 18:43 EDWINA CORRAL RESIDENT Mar 07, 2024 14:16
[2024-03-07 17:01] VITALS: BP 173/94; PULSE 73; RESP 16; TEMP 97.5; O2SAT 95
--- NOTE | 2024-03-07 17:01 | DVHINCON2 ---
Date of service: Mar 07, 2024 Referring Physician Hospitalist Reason for Consultation elevated PSA History of Present Illness History Source: Patient, RN Notes, MD Notes, Old Records Exam Limitations: No limitations HPI 78 yo male PMH elevated PSA and BPH s/p TURP [address] Méndez. with hx of HTN, HLD patient with multiple complaints including weakness patient on initial evaluation was having elevated pressures was placed on iv meds to control the blood pressure patient states that he has been on clonidine and his pressures have been extremely high then extremely low making him dizzy and weak. Home Meds Active Scripts Carvedilol (COREG) 12.5 Mg Tab, 12.5 MG PO Q12HR for 30 Days, #60 TAB Prov:RICHMOND LEIVA RESIDENT 03/07/24 Valsartan (Valsartan) 80 Mg Tab, 320 MG PO DAILY for 30 Days, #120 TAB Prov:RICHMOND LEIVA RESIDENT 03/06/24 Prazosin Hcl (Minipres) 1 Mg Cp, 1 MG PO Q12HR for 30 Days, #60 CAP Prov:RICHMOND LEIVA RESIDENT 03/06/24 Reported Medications Metoprolol Succinate (Metoprolol Succinate Er) 25 Mg Tab, 1 TAB PO DAILY for 90 Days, #90 03/05/24 Cholecalciferol (D3 5000) 5,000 Unit Cap, 1 CAP PO QWEEKLY for 84 Days, #12 03/05/24 Potassium Chloride (POTASSIUM CHLORIDE CR) 10 Meq Tb, 1 TAB PO DAILY for 30 Days, #30 03/05/24 Lovastatin (Lovastatin) 40 Mg Tab, 1 TAB PO HS 03/04/24 Diltiazem HCl Coated Beads (Diltiazem HCl ER) 120 Mg Cap, 1 CAP PO DAILY 03/04/24 Lisinopril (Lisinopril) 40 Mg Tab, 1 TAB PO DAILY 03/04/24 Hctz (Hydrochlorothiazide) 25 Mg Tab, 1 TAB PO DAILY 03/04/24 Clonidine Hydrochloride (Clonidine Hcl) 0.1 Mg Tab, 1 TAB PO Q8HPRN, #30 TAB 2 Refills 03/04/24 Hydralazine Hcl (Hydralazine Hcl) 100 Mg Tab, 1 TAB PO TID 03/04/24 Past Medical History Patient Family History: Diabetes mellitus G8 MOTHER FH: cancer G8 FATHER Review of Systems Constitutional: No symptom reported Ears, Nose, & Throat: No symptom reported Eyes: No symptom reported Pulmonary/Respiratory: No symptom reported Cardiovascular: No symptom reported Gastrointestinal: No symptom reported Genitourinary: No symptom reported Musculoskeletal: No symptom reported Skin: No symptom reported Psychiatric: No symptom reported Endocrine: No symptom reported Hemotologic/Lymphatic: No symptom reported H&P Exam Vital Signs Vital Signs Date Time Temp Pulse Resp B/P (MAP) Pulse Ox O2 Delivery O2 Flow Rate FiO2 03/07/24 14:23 120/74 03/07/24 13:12 97.4 78 16 94 97.4 03/07/24 08:00 Room Air* 0 21 General Appeara: Well developed, Well nourished, Normal Appearance Pulmonary/Respiratory: Normal inspection, Normal breath sounds, Chest non- tender, Lungs clear Cardiovascular/Chest: Normal inspection, Regular rate, Normal Rhythm Abdominal Exam: Normal bowel sounds, Soft, No tenderness, No hepatospenomegaly, No masses, Other (distended bladder) Neuro/Mental St: Alert, Oriented Appearance: Appropriate appearance, Appropriate insight Eye contact/ Speech: Cooperative, Good eye contact, Normal speech Skin Exam: Normal inspection, Normal color, Warm/dry Labs/Xrays [place] [address] Ph: [phone] DIAGNOSTIC IMAGING Diagnostic Imaging Report : [id number] Signed PATIENT: MICHAEL SINGHACCT: [id number] UNIT: [id number] : 1945 LOC: CENTRAL ROOM [facility] [address] / B AGE / SEX: 78 / M ADM STATUS: ADM IN SERVICE 1210 ORDERING PHYSICIAN: EDWINA CORRAL RESIDENT PROCEDURE(s): ABPL - CT AB PEL WO CON-NO ORAL OR IV REASON: HYDRONEPHROSIS ORDER NUMBER(s): [id number], ACCESSION NUMBER(s): [id number] Procedure: CT CT AB PEL WO CON-NO ORAL OR IV 03/06/2024 12:31 PM Indication: HYDRONEPHROSIS Comparison Study: Ultrasound dated Technique: Axial images were obtained and reformatted in coronal and sagittal planes. All CT scans at this medical facility are performed using dose modulation techniques as appropriate to a performed exam including the following: Automated exposure control was utilized; adjustment of the MA and/or KV according to patient size; and use of iterative reconstruction technique. CT Dose: CTDI volume is 8.52 mGy. Dose-length product is 434.54 mGy*cm FINDINGS: Lower Chest: Bibasilar subsegmental atelectasis is noted. Hepatobiliary: A subcentimeter cyst seen in the left hepatic lobe. Spleen: Unremarkable. Pancreas: Unremarkable. Adrenal Glands: Unremarkable. tract: The kidneys are normal in size bilaterally . Duplicated right renal collecting system with severe cystic dilatation of the lower pole moiety and calices, overlying cortical atrophy and associated hydro ureter. There is mild left hydronephrosis and hydroureter likely due to vesicoureteral reflux. Few subcentimeter nonobstructing bilateral renal calculi are noted bilaterally. Multiple renal cysts are seen measuring up to 6.2 cm in the right kidney. The urinary bladder is moderately fluid distended. GI tract: The stomach is grossly normal in appearance. No evidence of small bowel obstruction. There is descending and sigmoid diverticulosis without diverticulitis. The appendix is normal. Lymphatics: No mesenteric, retroperitoneal or periportal lymphadenopathy. Vasculature: The abdominal aorta is normal in caliber. Diffuse calcified plaque formation is noted. Pelvic Organs: Prostate is mildly enlarged. Bones/soft tissues: Multilevel degenerative disc disease and posterior facet art hropathy of the lumbar spine noted. Several lucent lesions are seen in the vertebrae measuring up to 1 cm in L4. Other: None. IMPRESSION: 1. 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 No urinary calculi are seen. 2. Mild left hydronephrosis and hydroureter likely secondary to vesicoureteral reflux. 3. The urinary bladder is moderately distended extending above the level of umbilicus. Consider catheterization. 4. Moderate prostatic hyperplasia. 5. Subcentimeter nonobstructive bilateral renal calculi. 6. Colonic diverticula without diverticulitis. Atherosclerotic disease. 7. Multilevel degenerative disc disease and posterior facet arthropathy of the lumbar spine. 8. Several indeterminate lucent lesions are seen in the vertebrae degenerative, hemangioma or lytic neoplasm. Correlate with history of known malignancy. Further evaluation with lumbar spine MRI without and with IV contrast could be completed if clinically warranted. Whole-body bone scan May also be helpful. ATED BY: CHYNA KIDD MD DICTATED DATE/TIME: 03/06/242 SIGNED BY: CHYNA KIDD MD SIGNED DATE/TIME: 03/06/241331 CC: [place] [address] Ph: [phone] DIAGNOSTIC IMAGING Diagnostic Imaging Report : [id number] Signed PATIENT: MICHAEL SINGHACCT: [id number] UNIT: [id number] : 1945 LOC: CENTRAL ROOM [facility] [address] / B AGE / SEX: 78 / M ADM STATUS: ADM IN SERVICE 17 ORDERING PHYSICIAN: EDWINA CORRAL PROCEDURE(s): KIDUS - KIDNEY REASON: christo ORDER NUMBER(s): [id number], ACCESSION NUMBER(s): [id number] RENAL ULTRASOUND CLINICAL HISTORY: christo TECHNIQUE: Multiple ultrasound images of the kidneys and bladder were obtained. COMPARISON: [Comparison] FINDINGS: The right kidney measures 9.6 cm in length. The left kidney measures 10.4 cm. There are areas of cortical thinning / scarring in the right kidney. There is right renal hydronephrosis. There is left renal pelviectasis. There is a 2 mm echogenic focus in the upper pole of the left kidney. A small calculus is not excluded. The bladder appears within normal limits without significant post void residual. The calculated prostate volume is 29 cc. IMPRESSION: 1. 2 mm echogenic focus in the upper pole of the left kidney. A small calculus is not excluded. 2. There is right renal hydronephrosis. There is left renal pelviectasis. 3. There is cortical thinning / scarring in the right kidney. HS:Y ATED BY: CRUZ LARA MD DICTATED DATE/TIME: 03/05/24 1529 SIGNED BY: CRUZ LARA MD SIGNED DATE/TIME: 03/05/24 152 CC: Labs Test 03/07/24 05:15 03/05/24 20:10 03/05/24 19:26 03/04/24 23:52 Range/Units White Blood Count 6.7 4.4-10.8 10^3/uL Red Blood Count 4.29 L 4.5-5.90 10^6/uL Hemoglobin 14.4 13.5-17.5 g/dL Hematocrit 39.9 L 41.0-53.0 % Mean Corpuscular Volume 93.1 80.0-100.0 fL Mean Corpuscular Hemoglobin 33.6 H 28.0-32.0 pg Mean Corpuscular Hemoglobin Concent 36.1 H 32.0-36.0 g/dL Red Cell Distribution Width 13.3 11.8-14.3 % Platelet Count 171 140-450 10^3/uL Mean Platelet Volume 8.2 6.9-10.8 fL Neutrophils (%) (Auto) 77.3 37.0-80.0 % Lymphocytes (%) (Auto) 16.6 10.0-50.0 % Monocytes (%) (Auto) 4.5 0.0-12.0 % Eosinophils (%) (Auto) 1.3 0.0-7.0 % Basophils (%) (Auto) 0.3 0.0-2.0 % Neutrophils # (Auto) 5.2 1.6-8.6 10 ^3/uL Lymphocytes # (Auto) 1.1 0.4-5.4 10 ^3/uL Monocytes # (Auto) 0.3 0-1.3 10 ^3/uL Eosinophils # (Auto) 0.1 0-0.8 10 ^3/uL Basophils # (Auto) 0 0-0.2 10 ^3/uL Nucleated Red Blood Cells 0.1 % Sodium Level 141 136-145 mmol/L Potassium Level 3.5 3.5-5.1 mmol/L Chloride Level 107 98-107 mmol/L Carbon Dioxide Level 26 20-31 mmol/L Anion Gap 8 5-15 Blood Urea Nitrogen 19 9-23 mg/dL Creatinine 1.35 H 0.700-1.30 mg/dL Glomerular Filtration Rate Calc 54 >90 mL/min BUN/Creatinine Ratio 14.1 10.0-20.0 Serum Glucose 105 74-106 mg/dL Calcium Level 10.0 8.7-10.4 mg/dL Total Bilirubin 0.8 0.2-1.0 mg/dL Aspartate Amino Transferase (AST) 26 13-40 U/L Alanine Aminotransferase (ALT) 15 7-40 U/L Alkaline Phosphatase 61 46-116 U/L Total Protein 5.6 L 5.7-8.2 g/dL Albumin 3.7 3.2-4.8 g/dL Urine Creatinine 88.98 30.0-125.0 mg/dL Urine Protein/Creatinine Ratio 0.21 Urine Sodium 65 40-220 mmol/L Urine Total Protein 18.8 H 1-14 mg/dL Hemoglobin A1c 5.3 <5.7 % A1C Phosphorus Level 2.7 2.4-5.1 mg/dL Free Prostate Specific Antigen 2.02 N/A ng/mL Percent Free Prostate Specific Ag 22.0 . % Prostate Specific Antigen Total 9.2 H 0.0-4.0 ng/mL Vitamin D 25-Hydroxy 120.4 H 30.0-100 ng/mL Thyroid Stimulating Hormone (TSH) 2.01 0.55-4.78 uIU/mL Parathyroid Hormone (Intact) 52.1 18.4-80.1 pg/mL Urine Color Light-yellow Yellow Urine Clarity Clear Clear Urine pH 6.5 5.0-9.0 Urine Specific [place] 1.007 1.001-1.035 Urine Protein Negative Negative Urine Ketones Negative Negative Urine Blood Negative Negative /uL Urine Nitrite Negative Negative Urine Bilirubin Negative Negative Urine Urobilinogen Normal Negative mg/dL Urine Leukocyte Esterase Negative Negative /uL Urine RBC <1 0 - 3 /hpf Urine WBC <1 0 - 3 /hpf Urine Squamous Epithelial Cells Few <5 /hpf Urine Bacteria None seen None Seen /hpf Urine Glucose Normal Normal mg/dL Test 03/04/24 14:40 Range/Units Troponin I High Sensitivity 15 </=54 ng/L Assessment/Plan Problem List: (1) Acute on chronic urinary retention (2) Duplicated right renal collecting system (3) BPH loc w urin obs/LUTS (4) Elevated PSA measurement Plan recommend skinner - pt refused "I have no trouble urinating". outpt cystoscopy and TRUS biopsy cleared from urology standpoint Plan discussed with: Patient, Other ALLISON DUMONT NP Mar 07, 2024 17:01
--- NOTE | 2024-03-07 17:35 | DVHDSRES ---
Discharge Summary Date of Admission Resident Creating Document: EDWINA CORRAL RESIDENT Mar 04, 2024 at 11:30 Date of Discharge: Mar 07, 2024 Admitting Diagnosis hypertensive emergency Labs/Diagnostic Data: Laboratory Results Test 03/07/24 05:15 03/05/24 20:10 03/05/24 19:26 03/04/24 23:52 White Blood Count 6.7 10^3/uL (4.4-10.8) Red Blood Count 4.29 10^6/uL (4.5-5.90) Hemoglobin 14.4 g/dL (13.5-17.5) Hematocrit 39.9 % (41.0-53.0) Mean Corpuscular Volume 93.1 fL (80.0-100.0) Mean Corpuscular Hemoglobin 33.6 pg (28.0-32.0) Mean Corpuscular Hemoglobin Concent 36.1 g/dL (32.0-36.0) Red Cell Distribution Width 13.3 % (11.8-14.3) Platelet Count 171 10^3/uL (140-450) Mean Platelet Volume 8.2 fL (6.9-10.8) Neutrophils (%) (Auto) 77.3 % (37.0-80.0) Lymphocytes (%) (Auto) 16.6 % (10.0-50.0) Monocytes (%) (Auto) 4.5 % (0.0-12.0) Eosinophils (%) (Auto) 1.3 % (0.0-7.0) Basophils (%) (Auto) 0.3 % (0.0-2.0) Neutrophils # (Auto) 5.2 10 ^3/uL (1.6-8.6) Lymphocytes # (Auto) 1.1 10 ^3/uL (0.4-5.4) Monocytes # (Auto) 0.3 10 ^3/uL (0-1.3) Eosinophils # (Auto) 0.1 10 ^3/uL (0-0.8) Basophils # (Auto) 0 10 ^3/uL (0-0.2) Nucleated Red Blood Cells 0.1 % Sodium Level 141 mmol/L (136-145) Potassium Level 3.5 mmol/L (3.5-5.1) Chloride Level 107 mmol/L (98-107) Carbon Dioxide Level 26 mmol/L (20-31) Anion Gap 8 (5-15) Blood Urea Nitrogen 19 mg/dL (9-23) Creatinine 1.35 mg/dL (0.700-1.30) Glomerular Filtration Rate Calc 54 mL/min (>90) BUN/Creatinine Ratio 14.1 (10.0-20.0) Serum Glucose 105 mg/dL (74-106) Calcium Level 10.0 mg/dL (8.7-10.4) Total Bilirubin 0.8 mg/dL (0.2-1.0) Aspartate Amino Transferase (AST) 26 U/L (13-40) Alanine Aminotransferase (ALT) 15 U/L (7-40) Alkaline Phosphatase 61 U/L (46-116) Total Protein 5.6 g/dL (5.7-8.2) Albumin 3.7 g/dL (3.2-4.8) Urine Creatinine 88.98 mg/dL (30.0-125.0) Urine Protein/Creatinine Ratio 0.21 Urine Sodium 65 mmol/L (40-220) Urine Total Protein 18.8 mg/dL (1-14) Hemoglobin A1c 5.3 % A1C (<5.7) Phosphorus Level 2.7 mg/dL (2.4-5.1) Free Prostate Specific Antigen 2.02 ng/mL (N/A) Percent Free Prostate Specific Ag 22.0 % (.) Prostate Specific Antigen Total 9.2 ng/mL (0.0-4.0) Vitamin D 25-Hydroxy 120.4 ng/mL (30.0-100) Thyroid Stimulating Hormone (TSH) 2.01 uIU/mL (0.55-4.78) Parathyroid Hormone (Intact) 52.1 pg/mL (18.4-80.1) Urine Color Light-yellow (Yellow) Urine Clarity Clear (Clear) Urine pH 6.5 (5.0-9.0) Urine Specific [place] 1.007 (1.001-1.035) Urine Protein Negative (Negative) Urine Ketones Negative (Negative) Urine Blood Negative /uL (Negative) Urine Nitrite Negative (Negative) Urine Bilirubin Negative (Negative) Urine Urobilinogen Normal mg/dL (Negative) Urine Leukocyte Esterase Negative /uL (Negative) Urine RBC <1 /hpf (0 - 3) Urine WBC <1 /hpf (0 - 3) Urine Squamous Epithelial Cells Few /hpf (<5) Urine Bacteria None seen /hpf (None Seen) Urine Glucose Normal mg/dL (Normal) Test 03/04/24 14:40 Troponin I High Sensitivity 15 ng/L (</=54) Other Laboratory Tests 03/07/24 05:15 Brief Hx & Hospital Course: A 78-year-old male with a history of hypertension, hyperlipidemia, and BPH presented to the ED with elevated blood pressure readings at home (220/100 mmHg) and symptoms of mild dizziness and weakness. He denied chest pain, headache, or shortness of breath. Workup revealed a hypertensive emergency, resolving with adjustments to carvedilol, hydralazine, and valsartan. Imaging studies identified right renal hydronephrosis with a duplicated collecting system and severe atrophy of the renal cortex, likely secondary to vesicoureteral reflux, as well as mild left hydronephrosis. A bladder scan showed significant post-void residual of 325 cc, suggestive of bladder outlet obstruction. CT imaging also revealed moderate prostatic hyperplasia and multiple indeterminate vertebral lesions concerning for a potential underlying malignancy, possibly prostate cancer. The patient was stabilized and counseled on the need for further evaluation of his prostate and vertebral findings. Urology was consulted, and outpatient follow-up is essential to investigate the suspected prostate malignancy, which may be contributing to his obstructive uropathy and other findings. His antihypertensive regimen was revised to carvedilol 12.5 mg BID, hydralazine 100 mg TID, hydrochlorothiazide 25 mg daily, and valsartan 320 mg daily. Atorvastatin 40 mg daily was continued for hyperlipidemia. Smoking cessation was strongly advised, and he was discharged in stable condition with instructions to follow up with urology and primary care for further management. Gen - no pallor, no icterus, no cyanosis, no clubbing, no LAD, no edema . Skin - Patients skin is warm and dry. HEENT - normocephalic, atraumatic, moist mucous membranes. Neck - full ROM, no LAD, JVP waveform is not seen. Pulmonary - B/L vesicular breath sounds. no crackles , no wheezing, no stridor. cardiovascular - normal S1,S2 heard. no murmurs heard. peripheral pulses normal radial 2+, pedal 2+. capillary refill normal <2 secs. GI - soft abdomen with tenderness to palpation in the right and the left iliac regions. no tenderness to deep palpation . no hepatospleenomegaly. Neurological - Patient is A/O X 3 . Bilateral upper extremity strength 5/5, bilateral lower extremity strength 5/5, no facial droop, normal speech, no tremor, no sensory deficits Case discussed with Dr Pate Time spent of care 23 min #Hypertensive emergency resolving Patient is on carvedilol 12.5 q.12h hydralazine 100 mg Q 8 hours hydrochlorothiazide 25 daily valsartan 320 mg prazosin 1 mg 12h normal ECHO trops neg normal head ct scan Consults/Reason for consult urology to rule out prostate cancer Operations or Procedures Procedure: CT CT AB PEL WO CON-NO ORAL OR IV 03/06/2024 12:31 PM Indication: HYDRONEPHROSIS Comparison Study: Ultrasound dated Technique: Axial images were obtained and reformatted in coronal and sagittal planes. All CT scans at this medical facility are performed using dose modulation techniques as appropriate to a performed exam including the following: Automated exposure control was utilized; adjustment of the MA and/or KV according to patient size; and use of iterative reconstruction technique. CT Dose: CTDI volume is 8.52 mGy. Dose-length product is 434.54 mGy*cm FINDINGS: Lower Chest: Bibasilar subsegmental atelectasis is noted. Hepatobiliary: A subcentimeter cyst seen in the left hepatic lobe. Spleen: Unremarkable. Pancreas: Unremarkable. Adrenal Glands: Unremarkable. tract: The kidneys are normal in size bilaterally . Duplicated right renal collecting system with severe cystic dilatation of the lower pole moiety and calices, overlying cortical atrophy and associated hydro ureter. There is mild left hydronephrosis and hydroureter likely due to vesicoureteral reflux. Few subcentimeter nonobstructing bilateral renal calculi are noted bilaterally. Multiple renal cysts are seen measuring up to 6.2 cm in the right kidney. The urinary bladder is moderately fluid distended. GI tract: The stomach is grossly normal in appearance. No evidence of small bowel obstruction. There is descending and sigmoid diverticulosis without diverticulitis. The appendix is normal. Lymphatics: No mesenteric, retroperitoneal or periportal lymphadenopathy. Vasculature: The abdominal aorta is normal in caliber. Diffuse calcified plaque formation is noted. Pelvic Organs: Prostate is mildly enlarged. Bones/soft tissues: Multilevel degenerative disc disease and posterior facet arthropathy of the lumbar spine noted. Several lucent lesions are seen in the vertebrae measuring up to 1 cm in L4. Other: None. IMPRESSION: 1. 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 No urinary calculi are seen. 2. Mild left hydronephrosis and hydroureter likely secondary to vesicoureteral reflux. 3. The urinary bladder is moderately distended extending above the level of umbilicus. Consider catheterization. 4. Moderate prostatic hyperplasia. 5. Subcentimeter nonobstructive bilateral renal calculi. 6. Colonic diverticula without diverticulitis. Atherosclerotic disease. 7. Multilevel degenerative disc disease and posterior facet arthropathy of the lumbar spine. 8. Several indeterminate lucent lesions are seen in the vertebrae degenerative, hemangioma or lytic neoplasm. Correlate with history of known malignancy. Further evaluation with lumbar spine MRI without and with IV contrast could be completed if clinically warranted. Whole-body bone scan May also be helpful. Condition at Discharge: Stable Final Diagnosis/Problems List #ELAYNE only # Possible CKD due to long standing hypertension and obstroctuve uropathy #moderate BPH #Right renal hydronephrosis. 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 #Mild left hydronephrosis and hydroureter likely secondary to vesicoureteral reflux. #Several indeterminate lucent lesions are seen in the vertebrae degenerative, hemangioma or lytic neoplasm #rule out prostate cancer #Hyperlipidiemia #Hypercalcemia Discharge Disposition: Home Discharge Instruct/Medications Diet: Consistent carbohydrate, Cardiac 2g Na,low cholest Activity: No Restrictions, As Tolerated Follow Up/Referral: fu with urology to work up to rule out prostate cancer fu with pcp due to new medication add for uncontrolled HTN Medications: see prescripction Discharge Statement: "Patient was advised to return to the ER or call 911 if any headaches, dizziness, shortness of breath, chest pain, abdominal pain, bleeding, fevers, or worsening of medical condition. Patient was counseled about treatment plan, medications, possible side effects, patientverbalized understanding. All questions were answered to the best of my ability. This discharge took greater then 30 minutes in planning, reviewing documentation, counseling the patient, and discussing with other team members." ASSESSMENT ASSESSMENT Assessment hypertensive emergency resolved rule out prostate cancer Date of Service: Mar 07, 2024 Billing Provider: ENRRIQUE PATE MD Common Visit Codes: 50512-FBL/OBS DISCH DAY >30min EDWINA CORRAL RESIDENT Mar 07, 2024 17:35 ENRRIQUE PATE MD Mar 10, 2024 20:16
[2024-03-07 18:08] VITALS: BP 135/72; PULSE 69
== END 2024-03-07 18:30 | disposition home or self-care (01) | DRG 305 ==
LOC: ER 07:33 → OVERFLOW 11:30 → CENTRAL 22:07
PROVIDERS: ADMIT Student in an Organized Health Care Education/Training Program; ATTEND Student in an Organized Health Care Education/Training Program
DX: I16.1 Hypertensive emergency (principal); N17.9 Acute kidney failure, unspecified; N13.8 Other obstructive and reflux uropathy; N13.30 Unspecified hydronephrosis; E78.5 Hyperlipidemia, unspecified; F17.210 Nicotine dependence, cigarettes, uncomplicated; N40.1 Benign prostatic hyperplasia with lower urinary tract symptoms; R33.8 Other retention of urine; E83.52 Hypercalcemia; I12.9 Hypertensive chronic kidney disease with stage 1 through stage 4 chronic kidney disease, or unspecified chronic kidney disease; E11.22 Type 2 diabetes mellitus with diabetic chronic kidney disease; N18.9 Chronic kidney disease, unspecified; N13.70 Vesicoureteral-reflux, unspecified; D18.00 Hemangioma unspecified site; C61 Malignant neoplasm of prostate; Z83.3 Family history of diabetes mellitus; Z80.9 Family history of malignant neoplasm, unspecified; Z79.899 Other long term (current) drug therapy
CPT/HCPCS: 36415; 70450; 71046; 74176; 76775; 80048; 80053; 81001; 82306; 82570; 83036; 83970; 84100; 84154; 84156; 84300; 84443; 84484; 85025; 93005; 93306; 96374; 96376; 99291; G0378; J2003; J3480

== ENCOUNTER 2024-03-18 21:15 | Emergency (ER) | payer BC, MEDICARE ==
[~2024-03-18] VITALS: Ht 167.6 cm; Wt 75.0 kg
[~2024-03-18 21:15] MED LIST changes: -AMOX875T4 PO; -AUG875T PO; +CARV-216 PO; +HYDR100T10 PO; +HYDR25TA5 PO; +LOVA40TA72 PO; -METO25TA93 PO; -POTA-36 PO; +PRAZ1CAP2 PO; -PRED20TA2 PO; +VALS1TAB57 PO
--- NOTE | 2024-03-18 22:18 | ED.PDOC ---
HPI Comments HPI: 78y M who presents to the ED for chief complaint of high blood pressure. Pt states he has been having high blood pressure on and off for the past 1 week. Pt states he was discharged from [facility] 2 weeks prior and states he was given new blood pressure medications and discharged. Pt states the first few days after discharge, his blood pressure was well controlled but states over the past few days, his blood pressure has been high despite taking his medications. Pt states he took his blood pressure last at 2000 this evening and came to the ED. Pt in the ED, has noted blood pressure of 210/100 and states he has been having associated "'fuzzy head" and states he has been feeling faint with associated chest pressure in the ED. Pt otherwise denies nausea, vomiting, shortness of breath, fever, cough or chills. Pt otherwise denies any other symptoms at this time. 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 #Mild left hydronephrosis and hydroureter likely secondary to vesicoureteral reflux. #Several indeterminate lucent lesions are seen in the vertebrae degenerative, hemangioma or lytic neoplasm #rule out prostate cancer #Hyperlipidiemia #Hypercalcemia Patient is on carvedilol 12.5 q.12h hydralazine 100 mg Q 8 hours hydrochlorothiazide 25 daily valsartan 320 mg prazosin 1 mg 12h Vitals: Temp: 98.7 F RR: 18 02 sat: 96% on room air HR: 63 BP: 210/100 PMH: hypertension, hyperlipidemia PSH: TURP 2018 Social history: endorses tobacco use, denies ETOH use, denies drug use Meds: valsartan, hydrochlorothiazide, hydralazine, lovastatin, Coreg, prazosin, allergies: nkda HPI: Poor Historian. Past Medcial History: Past Surgical History: REVIEW OF SYSTEMS: CONSTITUTIONAL: Denies acute: fever, diaphoresis, chills, generalized weakness. HEAD: Denies acute: photophobia Eyes: Denies acute: Double vision, vision loss, eye pain, eye discharge. EARS: Denies acute: tinnitus, hearing loss, ear discharge, ear pain, THROAT: Denies acute: sore throat, swelling, difficulty swallowing , pain with swallowing, change in voice. NECK: Denies acute: neck pain, neck swelling, stiff neck. HEART: Denies acute : palpitations, LUNGS: Denies acute: SOB, wheezing, cough, hemoptysis ABDOMEN: Denies acute: abdominal pain, Nausea, Vomiting, diarrhea, melena , hematemesis, hematochezia SKIN: Denies acute: rash, redness, lesions, itchiness. EXTREMITIES: Denies acute: calf pain, numbness, tingling, weakness, denies pain in extremity. Denies acute: Low back pain. Neuro: Denies acute: focal neurological deficit, motor or sensory focal neurological deficit, tremors, seizure like activity, confusion, change in mental status, loss of bowel or bladder function, cauda equina like symptoms. : Denies acute: dysuria, hematuria, flank pain, increase in urinary frequency. PSYCH: Denies acute: hallucination, suicidal ideation, homicidal ideation. PHYSICAL EXAM: General: no acute distress, awake and alert. Head: normocephalic, atraumatic. Neck: supple, trachea is midline, no swelling. Throat: Normal phonation. Eyes:, no erythema, no purulent discharge, no proptosis, no icterus. Heart: regular rate, regular rhythm, no significant murmur appreciated. Lungs: no apparent respiratory distress, Able to speak in full sentences. No wheezing, no rhonchi, no crackles. No stridors Clear to auscultation bilaterally. Abdomen: non tender to palpation, non distended, soft, no guarding, no rebound, + bowel sounds. Neuro: Awake, Alert, oriented to name, self, situation, follows commands GCS=15. Speech is normal. Skin: no petechia, no purpura, no cyanosis, non-pale, not jaundice. Lower extremities: --no - Pitting edema no deformity, no focal swelling, no calf TTP. Makes eye contact. moves all four extremities. Face: no apparent facial droop. Ambulating in the ED independently. Chief Complaint: High Blood Pressure Time Seen by MD: 22:17 Primary Care Provider: MILA Reviewed Notes: Nurses Notes, Medications, Allergies Allergies: Coded Allergies: No Known Drug Allergy (Verified Allergy, Unknown, 12/01/22) Home Meds Active Scripts Carvedilol (COREG) 12.5 Mg Tab, 12.5 MG PO Q12HR for 30 Days, #60 TAB Prov:RICHMOND LEIVA RESIDENT 03/07/24 Valsartan (Valsartan) 80 Mg Tab, 320 MG PO DAILY for 30 Days, #120 TAB Prov:RICHMOND LEIVA 03/06/24 Prazosin Hcl (Minipres) 1 Mg Cp, 1 MG PO Q12HR for 30 Days, #60 CAP Prov:RICHMOND LEIVA 03/06/24 Reported Medications Cholecalciferol (D3 5000) 5,000 Unit Cap, 1 CAP PO QWEEKLY for 84 Days, #12 03/05/24 Lovastatin (Lovastatin) 40 Mg Tab, 1 TAB PO HS 03/04/24 Hctz (Hydrochlorothiazide) 25 Mg Tab, 1 TAB PO DAILY 03/04/24 Hydralazine Hcl (Hydralazine Hcl) 100 Mg Tab, 1 TAB PO TID 03/04/24 Information Source: Patient Mode of Arrival: Ambulatory Past Medical History PAST MEDICAL HISTORY: High Lipids, HTN Surgical History: Denies all surgeries Family History Family History: Reviewed,noncontributory to illness, Family hx of DM, Family hx of Cancer Social History Smoker: Cigarettes Alcohol: Occasionally Drugs: Denies Drug Use Lives In: Home Was a procedure done? Was a procedure done?: No CP Differential Dx Differential Diagnosis: N/A Differential Diagnosis: Other (DDX include renal disease, thyroid disease, electrolyte abnormality, increased salt intake, medications non-compliance, undiagnosed HTN, Hypertensive crisis, hypertensive urgency., drug toxicity.) X-Ray, Labs, Meds, VS Vital Signs Date Time Temp Pulse Resp B/P (MAP) Pulse Ox O2 Delivery O2 Flow Rate FiO2 03/19/24 00:58 59 18 96 Room Air* 0 21 03/19/24 00:50 157/79 03/19/24 00:46 157/77 03/19/24 00:07 179/77 03/19/24 00:01 57 18 179/77 (111) 96 03/18/24 23:48 179/77 03/18/24 22:38 181/91 03/18/24 22:13 54 03/18/24 21:30 98.7 63 18 210/100 (136) 96 Lab Test 03/18/24 23:19 03/18/24 22:20 Range/Units Troponin I High Sensitivity 10 12 </=54 ng/L White Blood Count 5.8 4.4-10.8 10^3/uL Red Blood Count 4.41 L 4.5-5.90 10^6/uL Hemoglobin 14.6 13.5-17.5 g/dL Hematocrit 41.2 41.0-53.0 % Mean Corpuscular Volume 93.4 80.0-100.0 fL Mean Corpuscular Hemoglobin 33.1 H 28.0-32.0 pg Mean Corpuscular Hemoglobin Concent 35.5 32.0-36.0 g/dL Red Cell Distribution Width 12.9 11.8-14.3 % Platelet Count 205 140-450 10^3/uL Mean Platelet Volume 7.6 6.9-10.8 fL Neutrophils (%) (Auto) 66.9 37.0-80.0 % Lymphocytes (%) (Auto) 22.7 10.0-50.0 % Monocytes (%) (Auto) 6.2 0.0-12.0 % Eosinophils (%) (Auto) 3.5 0.0-7.0 % Basophils (%) (Auto) 0.7 0.0-2.0 % Neutrophils # (Auto) 3.9 1.6-8.6 10 ^3/uL Lymphocytes # (Auto) 1.3 0.4-5.4 10 ^3/uL Monocytes # (Auto) 0.4 0-1.3 10 ^3/uL Eosinophils # (Auto) 0.2 0-0.8 10 ^3/uL Basophils # (Auto) 0 0-0.2 10 ^3/uL Nucleated Red Blood Cells 0.0 % Sodium Level 140 136-145 mmol/L Potassium Level 3.2 L 3.5-5.1 mmol/L Chloride Level 103 98-107 mmol/L Carbon Dioxide Level 31 20-31 mmol/L Anion Gap 6 5-15 Blood Urea Nitrogen 14 9-23 mg/dL Creatinine 1.56 H 0.700-1.30 mg/dL Glomerular Filtration Rate Calc 45 >90 mL/min BUN/Creatinine Ratio 9.0 L 10.0-20.0 Serum Glucose 106 74-106 mg/dL Calcium Level 10.3 8.7-10.4 mg/dL Total Bilirubin 0.8 0.2-1.0 mg/dL Aspartate Amino Transferase (AST) 13 13-40 U/L Alanine Aminotransferase (ALT) 14 7-40 U/L Alkaline Phosphatase 62 46-116 U/L B-Type Natriuretic Peptide 122.12 0-100 pg/mL Total Protein 6.2 5.7-8.2 g/dL Albumin 4.1 3.2-4.8 g/dL Current Medications Medications (Trade) Dose Ordered Sig/Kika Route Start Time Stop Time Status Last Admin Nitroglycerin (Ntrostat Sublingual) 0.4 mg ONCE ONCE SL 03/18/24 22:15 03/18/24 22:16 DC 03/18/24 22:38 Nitroglycerin (Ntrostat Sublingual) 0.4 mg ONCE ONCE SL 03/19/24 00:15 03/19/24 00:16 DC 03/19/24 00:07 [place] [id number] Ph: [phone] DIAGNOSTIC IMAGING Diagnostic Imaging Report : [id number] Signed PATIENT: MICHAEL SINGHACCT: [id number] UNIT: [id number] : 1945 LOC: ER ROOM / BED: / AGE / SEX: 78 / M ADM STATUS: REG ER SERVICE 08 ORDERING PHYSICIAN: SELMA COBB DO PROCEDURE(s): HWOCT - HEAD WITHOUT CONTRAST REASON: cp, htn, fuzzy ORDER NUMBER(s): [id number], ACCESSION NUMBER(s): [id number] CT HEAD WITHOUT CONTRAST INDICATION: cp, htn, fuzzy COMPARISON: CT HEAD WITHOUT CONTRAST on DOS: 03/04/24, CT HEAD WITHOUT CONTRAST on DOS: 11/02/22, CT CERVICAL WITHOUT CONTRAST on DOS: 11/02/22 TECHNIQUE: CT of the head without intravenous contrast. RADIATION DOSE: CTDIvol: 65.22 mGy, DLP: 1045.25 mGy*cm FINDINGS: There is no evidence of acute intracranial hemorrhage, extra-axial collection, mass effect, midline shift, herniation or hydrocephalus. The ventricles, sulci and cisterns are age appropriate. The gutierres-white differentiation is intact. Chronic microvascular ischemic changes. The visualized paranasal sinuses and mastoid air cells are clear. The surrounding soft tissues and osseous structures are unremarkable. IMPRESSION: 1. No evidence of acute intracranial hemorrhage, mass effect or hydrocephalus. ATED BY: JERROD TOWNSEND MD DICTATED DATE/TIME: 03/18/242235 SIGNED BY: JERROD TOWNSEND MD SIGNED DATE/TIME: 03/18/242235 CC: [place] [id number] Ph: [phone] DIAGNOSTIC IMAGING Diagnostic Imaging Report : [id number] Signed PATIENT: MICHAEL SINGHACCT: [id number] UNIT: [id number] : 1945 LOC: ER ROOM / BED: / AGE / SEX: 78 / M ADM STATUS: REG ER SERVICE 08 ORDERING PHYSICIAN: SELMA COBB DO PROCEDURE(s): CXRP - CHEST PORTABLE REASON: cp, htn ORDER NUMBER(s): [id number], ACCESSION NUMBER(s): [id number] CHEST RADIOGRAPH Indication: cp, htn Technique: Single frontal view of the chest was obtained COMPARISON: XY CHEST PORTABLE on DOS: 11/02/22 FINDINGS: Lines and Tubes: None Lungs: Clear Pleura: No effusion. No pneumothorax. Cardiomediastinal contours: Unremarkable Bones: Unremarkable IMPRESSION: 1. No acute disease. ATED BY: JERROD TOWNSEND MD DICTATED DATE/TIME: 03/18/242231 SIGNED BY: JERROD TOWNSEND MD SIGNED DATE/TIME: 03/18/242231 CC: Time of 1ST Reevaluation: 23:00 Reevaluation 1ST: Improved Time of 2ND Reevaluation: 00:00 Reevaluation 2ND: Resolved Patient Education/Counseling: Diagnosis, Treatment Family Education/Counseling: No Family Present Comments Patient presented with the above HPI.-hypertension/cardiac-----workup was initiated. patient was found with the above mentioned diagnosis. Patient was given: Nitroglycerin sublingual twice Patient ED course and VS have been stabilized. Patient has been reassessed in the ED and remained in a stable condition. Pertinent incidental findings were discussed with the patient and/or family. Patient/family voices understanding and is agreeable with plan. Patient has been observed in the ED adequate length of time to insure improvement/stability. patient was discharged home in a stable condition. All the reports of any imaging studies that were ordered by myself were reviewed by myself. Departure 1 Departure Time of Disposition: 22:46 Impression: Primary Impression: Hypertensive crisis Disposition: HOME / SELF CARE / HOMELESS Condition: Stable Additional Instructions: Additional discharge instructions: You MUST follow-up with your primary care/family doctor in 1 to 2 days. If you are unable to see your primary care/family doctor, please return to our emergency room for re-assessment and re-evaluation in 1 to 2 days. Return to the emergency room here in our facility or to the nearest ER [facility] if your symptoms change or worsen. CONSULTATIONS: you MUST Follow-up for consultation as soon as possible with: --cardiology in 1-2 days. Please call for appointment You MUST call the consultants office yourself to make an appointment. You may need to arrange that through your insurance and/or your primary/family doctor. If you are unable to see the surgery consultant in 1 to 2 days, you must return to our emergency room (or any other ER of your choice) for re-assessment and re- evaluation. Adequate fluid hydration. Monitoring blood pressure at home at least 3 times a day. Discharged With: Self Critical Care Note Critical Care Time?: Yes (35 min-critical care time only) Heart Score Heart Score: Heart Score Response (Comments) Value History Slightly Suspicious 0 EKG Normal 0 Age >65 2 Risk Factors 1 or 2 risk factors 1 Troponin Normal limit 0 Total 3 I personally scribed for SELMA COBB DO ([email or web address]) on 03/18/24 at 22:18. Electronically submitted by Jericho Saeed ([email or web address]). SELMA COBB DO Mar 18, 2024 22:18
[2024-03-18 22:33] LABS: Basophils # (auto) 0 10 ^3/uL (0-0.2); Basophils % (auto) 0.7 % (0.0-2.0); Eosinophils # (auto) 0.2 10 ^3/uL (0-0.8); Eosinophils % (auto) 3.5 % (0.0-7.0); Hematocrit 41.2 % (41.0-53.0); Hemoglobin 14.6 g/dL (13.5-17.5); Lymphocytes # (auto) 1.3 10 ^3/uL (0.4-5.4); Lymphocytes % (auto) 22.7 % (10.0-50.0); Mean Corpuscular Hemoglobin 33.1 pg (28.0-32.0); Mean Corpuscular Hgb Conc. 35.5 g/dL (32.0-36.0); Mean Corpuscular Volume 93.4 fL (80.0-100.0); Monocytes # (auto) 0.4 10 ^3/uL (0-1.3); Monocytes % (auto) 6.2 % (0.0-12.0); Neutrophils # (auto) 3.9 10 ^3/uL (1.6-8.6); Neutrophils % (auto) 66.9 % (37.0-80.0); Platelet Count (auto) 205 10^3/uL (140-450); Red Blood Cells 4.41 10^6/uL (4.5-5.90); Red Cell Distribution Width 12.9 % (11.8-14.3); White Blood Cell 5.8 10^3/uL (4.4-10.8)
--- NOTE | 2024-03-18 22:35 | DVH ---
CHEST RADIOGRAPH Indication: cp, htn Technique: Single frontal view of the chest was obtained COMPARISON: XY CHEST PORTABLE on DOS: 11/02/22 FINDINGS: Lines and Tubes: None Lungs: Clear Pleura: No effusion. No pneumothorax. Cardiomediastinal contours: Unremarkable Bones: Unremarkable IMPRESSION: 1. No acute disease.
[2024-03-18] MEDS: NITROGLYCERIN 0.4 MG SL TAB SL ONE (22:38)
--- NOTE | 2024-03-18 22:38 | DVH ---
CT HEAD WITHOUT CONTRAST INDICATION: cp, htn, fuzzy COMPARISON: CT HEAD WITHOUT CONTRAST on DOS: 03/04/24, CT HEAD WITHOUT CONTRAST on DOS: 11/02/22, CT C ERVICAL WITHOUT CONTRAST on DOS: 11/02/22 TECHNIQUE: CT of the head without intravenous contrast. RADIATION DOSE: CTDIvol: 65.22 mGy, DLP: 1045.25 mGy*cm FINDINGS: There is no evidence of acute intracranial hemorrhage, extra-axial collection, mass effect, midline s hift, herniation or hydrocephalus. The ventricles, sulci and cisterns are age appropriate. The gutierres -white differentiation is intact. Chronic microvascular ischemic changes. The visualized paranasal s inuses and mastoid air cells are clear. The surrounding soft tissues and osseous structures are unre markable. IMPRESSION: 1. No evidence of acute intracranial hemorrhage, mass effect or hydrocephalus.
[2024-03-18 22:51] LABS: Alanine Aminotransferase 14 U/L (7-40); Albumin 4.1 g/dL (3.2-4.8); Alkaline Phosphatase 62 U/L (46-116); Anion Gap 6 (5-15); Blood Urea Nitrogen 14 mg/dL (9-23); Calcium 10.3 mg/dL (8.7-10.4); Chloride 103 mmol/L (98-107); Sodium 140 mmol/L (136-145)
[2024-03-18 22:52] LABS: Bilirubin, Total 0.8 mg/dL (0.2-1.0); Total Protein 6.2 g/dL (5.7-8.2)
[2024-03-18 22:55] LABS: Aspartate Aminotransferase 13 U/L (13-40); Carbon Dioxide 31 mmol/L (20-31); Glucose 106 mg/dL (74-106); Potassium 3.2 mmol/L (3.5-5.1)
[2024-03-19 00:01] VITALS: BP 179/77
[2024-03-19] MEDS: NITROGLYCERIN 0.4 MG SL TAB SL ONE (00:07)
[2024-03-19] MEDS: hydrALAZINE HCL 20 MG/ML VL IV ONE (00:46)
[2024-03-19 00:58] VITALS: PULSE 59; RESP 18; O2SAT 96
--- NOTE | 2024-03-19 10:40 | ECG ---
[facility] Test Date: 2024-03-18 Test Time: 22:13:57 Pat Name: MICHAEL SINGH Department: ER Room: Gender: M [employer] Service Representative: TIMOTHY : 1945 Requested By: SELMA COBB Order Number: [id number] Reading MD: Sin Rachel Measurements Intervals [place] Rate: 54 P: 63 NH: 37 QRS: 64 QRSD: 97 T: 26 QT: 489 QTc: 464 Interpretive Statements Sinus rhythm Multiple ventricular premature complexes Short NH interval Minimal ST depression, inferior leads Electronically Signed On 03-19-2024 16:25:29 PST by Sin Rachel Please click the below link to view image of tracing.
== END 2024-03-19 01:01 | disposition home or self-care (01) ==
LOC: ER 21:15
DX: I16.9 Hypertensive crisis, unspecified (principal); E78.5 Hyperlipidemia, unspecified; R51.9 Headache, unspecified; F17.210 Nicotine dependence, cigarettes, uncomplicated; Z79.899 Other long term (current) drug therapy; Z90.79 Acquired absence of other genital organ(s)
CPT/HCPCS: 36415; 70450; 71045; 80053; 83880; 84484; 85025; 93005

== ENCOUNTER 2024-07-25 07:29 | Inpatient (IN) | payer MEDICARE, BC ==
[~2024-07-25] VITALS: Ht 167.6 cm; Wt 71.7 kg
[2024-07-25] VITALS (8 sets, daily range): BP systolic 120–147; BP diastolic 61–77; PULSE 72–92; RESP 16–18; TEMP 97.7–98.2; O2SAT 96–98
--- NOTE | 2024-07-25 07:58 | ED.PDOC ---
History of Present Illness HPI Comments 78M presents to the ER w/ no prior Hx associated to the c/c of SOB. Pt reports on having SOB after taking his HTN medication this morning at 0600. Pt states that he felt fatigue, as well as having a SAT of 95% RA in triage. PMHx of HTN, Prostate and High Lipids. SHx of Turp. Social Hx of tobacco use, but denies alcohol and substance use. Denies chills, fever, N/V/D, CP or no other associated symptoms, modifiers, recent injuries or sick contacts at this time. Chief Complaint: Shortness of Breath Time Seen by MD: 07:45 Primary Care Provider: MILA Alonso Notes: Nurses Notes, Medications, Allergies Allergies: Coded Allergies: No Known Drug Allergy (Verified Allergy, Unknown, 12/01/22) Home Meds Active Scripts Carvedilol (COREG) 12.5 Mg Tab, 12.5 MG PO Q12HR for 30 Days, #60 TAB Prov:RICHMOND LEIVA RESIDENT 03/07/24 Valsartan (Valsartan) 80 Mg Tab, 320 MG PO DAILY for 30 Days, #120 TAB Prov:RICHMOND LEIVA RESIDENT 03/06/24 Prazosin Hcl (Minipres) 1 Mg Cp, 1 MG PO Q12HR for 30 Days, #60 CAP Prov:RICHMOND LEIVA RESIDENT 03/06/24 Reported Medications Aspirin (Aspirin Low Dose) 81 Mg Tab, 1 TAB PO DAILY 07/25/24 Nifedipine (Nifedipine Er) 90 Mg Tab 07/25/24 Tamsulosin Hcl (Tamsulosin Hcl) 0.4 Mg Cap, CAP PO 07/25/24 Cholecalciferol (D3 5000) 5,000 Unit Cap, 1 CAP PO QWEEKLY for 84 Days, #12 03/05/24 Lovastatin (Lovastatin) 40 Mg Tab, 1 TAB PO HS 03/04/24 Hctz (Hydrochlorothiazide) 25 Mg Tab, 1 TAB PO DAILY 03/04/24 Hydralazine Hcl (Hydralazine Hcl) 100 Mg Tab, 1 TAB PO TID 03/04/24 Information Source: Patient Mode of Arrival: Ambulatory Severity: Moderate Timing: Minutes Duration: Since onset, Minutes Prehospital treatment: None Past Medical History PAST MEDICAL HISTORY: High Lipids, HTN Past Medical History (Other): Prostate Surgical History (Other): Turp Family History Family History: Reviewed,noncontributory to illness, Unknown Social History Smoker: Cigarettes Alcohol: Denies ETOH Use Drugs: Denies Drug Use Lives In: Home Constitutional: denies: chills, diaphoresis, fatigue, fever, malaise, sweats, weakness, others EENTM: denies: blurred vision, double vision, ear bleeding, ear discharge, ear drainage, ear pain, ear ringing, eye pain, eye redness, hearing loss, mouth pain, mouth swelling, nasal discharge, nose bleeding, nose congestion, nose pain, photophobia, tearing, throat pain, throat swelling, voice changes, others Respiratory: reports: SOB at rest, shortness of breath, others (Fatigue); denies: cough, hemoptysis, orthopnea, SOB with excertion, stridor, wheezing Cardiovascular: denies: chest pain, dizzy spells, diaphoresis, Dyspnea on exertion, edema, irregular heart beat, left arm pain, lightheadedness, pa lpitations, PND, syncope, others Gastrointestinal: denies: abdomen distended, abdominal pain, blood streaked bowels, constipated, diarrhea, dysphagia, difficulty swallowing, hematemesis, melena, nausea, poor appetite, poor fluid intake, rectal bleeding, rectal pain, vomiting, others Genitourinary: denies: burning, dysuria, flank pain, frequency, hematuria, incontinence, penile discharge, penile sore, pain, testicle pain, testicle swelling, urgency, others Neurological: denies: dizziness, fainting, headache, left sided numbness, left sided weakness, numbness, paresthesia, pre-existing deficit, right sided numbness, right sided weakness, seizure, speech problems, tingling, tremors, weakness, others Musculoskeletal: denies: back pain, gout, joint pain, joint swelling, muscle pain, muscle stiffness, neck pain, others Integumetry: denies: bruises, change in color, change in hair/nails, dryness, laceration, lesions, lumps, rash, wounds, others Allergic/Immunocompromised: denies: Difficulty Healing, Frequent Infections, Hives, Itching, others Hematologic/Lymphatic: denies: anemia, blood clots, easy bleeding, easy br uising, swollen glands, others Endocrine: denies: excessive hunger, excessive sweating, excessive thirst, excessive urination, flushing, intolerance to cold, intolerance to heat, unexplained weight gain, unexplained weight loss, others Psychiatric: denies: anxiety, bipolar disorder, depression, hopeless, panic disorder, schizophrenia, sleepless, suicidal, others All Other Systems: Reviewed and Negative Physical Exam General Appearance: Moderate Distress, Normal HEENT: Normal ENT Inspection, Pharynx Normal, TMs Normal Neck: Full Range of Motion, Non-Tender, Normal, Normal Inspection Respiratory: Chest Non-Tender, Lungs Clear, No Accessory Muscle Use, No Respiratory Distress, Normal Breath Sounds Cardiovascular: No Edema, No JVD, No Murmur, No Gallop, Normal Peripheral Pulses, Regular Rate/Rhythm Breast Exam: Deferred Gastrointestinal: No Organomegaly, Non Tender, No Pulsatile Mass, Normal Bowel Sounds, Soft Genitalia: Deferred Pelvic: Deferred Rectal: Deferred Extremities: No calf tenderness, Normal capillary refill, Normal inspection, Normal range of motion, Non-tender, No pedal edema Musculoskeletal : Apperance: Normal Neurologic: Alert, printer operator II-XII nml as Tested, No Motor Deficits, Normal Affect, Normal Mood, No Sensory Deficits Cerebellar Function: Normal Reflexes: Normal Skin: Dry, Normal Color, Warm Peripheral Pulses: 3+ Radial (R), 3+ Radial (L) Lymphatic: No Adenopathy Was a procedure done? Was a procedure done?: No EKG EKG : Pulse Rate (adult): 78 [place]: Normal Cardiac Rhythm: NSR Block: None Hypertrophy: None ST: Normal Differential Dx Considerations may include: Anemia Electrolyte imbalance X-Ray, Labs, Meds, VS Vital Signs Date Time Temp Pulse Resp B/P (MAP) Pulse Ox O2 Delivery O2 Flow Rate FiO2 07/25/24 09:24 65 96 Room Air 07/25/24 09:23 65 16 128/61 (83) 96 07/25/24 08:08 78 07/25/24 07:55 20 95 Room Air* 0 21 07/25/24 07:49 78 07/25/24 07:38 98.2 80 20 130/71 (90) 95 98.2 Lab Test 07/25/24 08:09 Range/Units White Blood Count 5.8 4.4-10.8 10^3/uL Red Blood Count 4.55 4.5-5.90 10^6/uL Hemoglobin 15.2 13.5-17.5 g/dL Hematocrit 42.9 41.0-53.0 % Mean Corpuscular Volume 94.1 80.0-100.0 fL Mean Corpuscular Hemoglobin 33.4 H 28.0-32.0 pg Mean Corpuscular Hemoglobin Concent 35.4 32.0-36.0 g/dL Red Cell Distribution Width 13.2 11.8-14.3 % Platelet Count 215 140-450 10^3/uL Mean Platelet Volume 7.3 6.9-10.8 fL Neutrophils (%) (Auto) 74.7 37.0-80.0 % Lymphocytes (%) (Auto) 15.9 10.0-50.0 % Monocytes (%) (Auto) 5.2 0.0-12.0 % Eosinophils (%) (Auto) 3.0 0.0-7.0 % Basophils (%) (Auto) 1.2 0.0-2.0 % Neutrophils # (Auto) 4.3 1.6-8.6 10 ^3/uL Lymphocytes # (Auto) 0.9 0.4-5.4 10 ^3/uL Monocytes # (Auto) 0.3 0-1.3 10 ^3/uL Eosinophils # (Auto) 0.2 0-0.8 10 ^3/uL Basophils # (Auto) 0.1 0-0.2 10 ^3/uL Nucleated Red Blood Cells 0.0 % Sodium Level 140 136-145 mmol/L Potassium Level 3.1 L 3.5-5.1 mmol/L Chloride Level 104 98-107 mmol/L Carbon Dioxide Level 30 20-31 mmol/L Anion Gap 6 5-15 Blood Urea Nitrogen 14 9-23 mg/dL Creatinine 1.35 H 0.700-1.30 mg/dL Glomerular Filtration Rate Calc 54 >90 mL/min BUN/Creatinine Ratio 10.4 10.0-20.0 Serum Glucose 159 H 74-106 mg/dL Calcium Level 10.8 H 8.7-10.4 mg/dL Troponin I High Sensitivity 6 </=54 ng/L Current Medications Medications (Trade) Dose Ordered Sig/Kika Route Start Time Stop Time Status Last Admin Potassium Chloride (Klor-Con Tablet) 40 meq ONCE ONCE PO 07/25/24 10:00 07/25/24 10:17 DC 07/25/24 10:48 Patient alert. Complaining of shortness a breath. Has good lung expansion. Vitals stable. Answering questions. EKG reviewed does show premature ventricular contractions. Chest x-ray reviewed does not show any acute changes. Has risk factors for coronary artery disease. Cardiology consultation. Stress test. He does smoke cigarettes. Counseled patient effects of smoking cigarettes for 15 minutes. Reviewed his history. Explained to the patient. Continue cardiac monitoring. CT HEAD WITHOUT CONTRAST INDICATION: Syncope : 78 old Male Syncope EXAM DATE: 07/25/2024 12:47 PM COMPARISON: CT HEAD WITHOUT CONTRAST on DOS: 03/18/24, CT HEAD WITHOUT CONTRAST o n DOS: 03/04/24, CT HEAD WITHOUT CONTRAST on DOS: 11/02/22 RADIATION DOSE: CTDIvol: 62.2 mGy, DLP: 996.85 mGy*cm PROCEDURE: CT scans of the head were obtained from the vertex to the skull base. Sagittal and coronal reconstructions were provided. All CT scans at this medical facility are performed using dose modulation techniques as appropriate to a performed exam including the following: Automated exposure control was utilized; adjustment of the MA and/or KV according to patient size; and use of iterative reconstruction technique. FINDINGS: There is sulcal and ventricular prominence. The brainshows normal morphology and gutierres-white matter differentiation, without intracranial hemorrhage, extra-axial fluid collection, mass effect or acute large vessel in farct. The ventricles are normal in size. The basal cisterns are patent. The skull and visible facial bones are intact. Right mastoid effusion. The paranasal sinuses, mastoid air cells and middle ear cavities are well-aerated. The soft tissues of the scalp are unremarkable. IMPRESSION: Right mastoid effusion. No acute intracranial abnormality. T RADIOGRAPH Indication: sob Technique: Single frontal view of the chest was obtained COMPARISON: XY CHEST PORTABLE on DOS: 03/18/24, XY CHEST PORTABLE on DOS: 11/02/22 FINDINGS: Lines and Tubes: None Lungs: Clear Pleura: No effusion. No pneumothorax. Cardiomediastinal contours: Unremarkable Bones: Unremarkable IMPRESSION: No acute disease. Time of 1ST Reevaluation: 08:15 Reevaluation 1ST: Unchanged Patient Education/Counseling: Diagnosis, Treatment, Prognosis Family Education/Counseling: No Family Present Departure 1 Departure Time of Disposition: 08:17 Impression: Primary Impression: Chest pain of unknown etiology Disposition: 09 ADMITTED INPATIENT Admit to: Med Surg Condition: Guarded Critical Care Note Critical Care Time?: No Stability Stability form required: No Heart Score Heart Score: Heart Score Response (Comments) Value History Slightly Suspicious 0 EKG Normal 0 Age >65 2 Risk Factors >3 or Hx ASHD 2 Troponin Normal limit 0 Total 4 I personally scribed for ENOC CARTER MD ([email or web address]) on 07/25/24 at 07:58. Electronically submitted by Zack Steele (Maven). I personally scribed for ENOC CARTER MD ([email or web address]) on 07/25/24 at 08:08. Electronically submitted by Zack Steele (Maven). I personally scribed for ENOC CARTER MD ([email or web address]) on 07/25/24 at 14:53. Electronically submitted by Zack Steele (Maven). ENOC CARTER MD Jul 25, 2024 07:58
--- NOTE | 2024-07-25 08:10 | ECG ---
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
--- NOTE | 2024-07-25 08:18 | DVH ---
CHEST RADIOGRAPH Indication: sob Technique: Single frontal view of the chest was obtained COMPARISON: XY CHEST PORTABLE on DOS: 03/18/24, XY CHEST PORTABLE on DOS: 11/02/22 FINDINGS: Lines and Tubes: None Lungs: Clear Pleura: No effusion. No pneumothorax. Cardiomediastinal contours: Unremarkable Bones: Unremarkable IMPRESSION: No acute disease.
[2024-07-25 08:21] LABS: Basophils # (auto) 0.1 10 ^3/uL (0-0.2); Basophils % (auto) 1.2 % (0.0-2.0); Eosinophils # (auto) 0.2 10 ^3/uL (0-0.8); Hematocrit 42.9 % (41.0-53.0); Hemoglobin 15.2 g/dL (13.5-17.5); Lymphocytes # (auto) 0.9 10 ^3/uL (0.4-5.4); Lymphocytes % (auto) 15.9 % (10.0-50.0); Mean Corpuscular Hemoglobin 33.4 pg (28.0-32.0); Mean Corpuscular Hgb Conc. 35.4 g/dL (32.0-36.0); Mean Corpuscular Volume 94.1 fL (80.0-100.0); Monocytes # (auto) 0.3 10 ^3/uL (0-1.3); Monocytes % (auto) 5.2 % (0.0-12.0); Neutrophils # (auto) 4.3 10 ^3/uL (1.6-8.6); Neutrophils % (auto) 74.7 % (37.0-80.0); Platelet Count (auto) 215 10^3/uL (140-450); Red Blood Cells 4.55 10^6/uL (4.5-5.90); Red Cell Distribution Width 13.2 % (11.8-14.3); White Blood Cell 5.8 10^3/uL (4.4-10.8)
[2024-07-25 08:28] LABS: Anion Gap 6 (5-15); Chloride 104 mmol/L (98-107); Sodium 140 mmol/L (136-145)
[2024-07-25 08:29] LABS: Potassium 3.1 mmol/L (3.5-5.1)
[2024-07-25 08:34] LABS: BUN/Creatinine Ratio 10.4 (10.0-20.0); Blood Urea Nitrogen 14 mg/dL (9-23)
[2024-07-25 08:38] LABS: Calcium 10.8 mg/dL (8.7-10.4); Carbon Dioxide 30 mmol/L (20-31); Glucose 159 mg/dL (74-106)
[2024-07-25] MEDS ORDERED: HYDR-4902 PO (09:59)
--- NOTE | 2024-07-25 10:08 | DVHHP2 ---
History of Present Illness Reason for Visit: SOB History of Present Illness FeliciaDavid is a 78-year-old male with past medical history of hypertension, hyperlipidemia, prostate disease with TURP who presents to the ED with shortness of breath x1 day. Patient reports that today was worse than the prior days. He states that when he ambulates he gets short of breath. Patient is also hard of hearing. Patient reports that he smokes a few cigarettes per day. Patient denies any chest pain, fever, chills, lightheadedness, weakness, dizziness, abdominal pain, nausea, vomiting, diarrhea, recent sick contacts, recent travels or recent ingestion of spoiled food. Cardiovascular: HTN, hyperipidemia Renal/: Benign prostatic enlarg. Past Surgical History: TURP Family History: Other (Both parents ) Smoke: <1 pack per day ALCOHOL: none Drugs: None Lives: with Family Domestic Violence: Neg Review of Systems Respiratory: Shortness of breath Allergies: Coded Allergies: No Known Drug Allergy (Verified Allergy, Unknown, 12/01/22) Medications Current Medications Medications Dose Ordered Sig/Kika Route Start Time Stop Time Status Last Admin Dose Admin Ondansetron HCl 4 mg Q4HP PRN IV 07/25/24 10:00 UNV Enoxaparin Sodium 40 mg DAILY SC 07/25/24 10:00 UNV Acetaminophen 650 mg Q6HP PRN PO 07/25/24 10:00 UNV Exam Vital Signs Vital Signs Date Time Temp Pulse Resp B/P (MAP) Pulse Ox O2 Delivery O2 Flow Rate FiO2 07/25/24 09:24 65 96 Room Air 07/25/24 09:23 16 128/61 (83) 07/25/24 07:55 0 21 07/25/24 07:38 98.2 98.2 General Appearance: Alert, Oriented X3, Cooperative, No acute distress HEENT: Atraumatic, PERRLA, EOMI, Mucous membr. moist/pink Respiratory: Clear to auscultation, Normal air movement Cardiovascular: Regular rate, Normal S1, Normal S2, No murmurs Abdominal: Normal bowel sounds, Soft, No tenderness, No hepatospenomegaly Extremities: No clubbing, No cyanosis, Normal pulses, No tenderness/swelling Skin: No significant lesion Neuro: Normal gait, Normal speech, Strength at 5/5 X4 ext, Normal tone, Sensation intact Psych/Mental Status: Mental status NL, Mood NL Labs/Xrays Labs Test 07/25/24 08:09 Range/Units White Blood Count 5.8 4.4-10.8 10^3/uL Red Blood Count 4.55 4.5-5.90 10^6/uL Hemoglobin 15.2 13.5-17.5 g/dL Hematocrit 42.9 41.0-53.0 % Mean Corpuscular Volume 94.1 80.0-100.0 fL Mean Corpuscular Hemoglobin 33.4 H 28.0-32.0 pg Mean Corpuscular Hemoglobin Concent 35.4 32.0-36.0 g/dL Red Cell Distribution Width 13.2 11.8-14.3 % Platelet Count 215 140-450 10^3/uL Mean Platelet Volume 7.3 6.9-10.8 fL Neutrophils (%) (Auto) 74.7 37.0-80.0 % Lymphocytes (%) (Auto) 15.9 10.0-50.0 % Monocytes (%) (Auto) 5.2 0.0-12.0 % Eosinophils (%) (Auto) 3.0 0.0-7.0 % Basophils (%) (Auto) 1.2 0.0-2.0 % Neutrophils # (Auto) 4.3 1.6-8.6 10 ^3/uL Lymphocytes # (Auto) 0.9 0.4-5.4 10 ^3/uL Monocytes # (Auto) 0.3 0-1.3 10 ^3/uL Eosinophils # (Auto) 0.2 0-0.8 10 ^3/uL Basophils # (Auto) 0.1 0-0.2 10 ^3/uL Nucleated Red Blood Cells 0.0 % Sodium Level 140 136-145 mmol/L Potassium Level 3.1 L 3.5-5.1 mmol/L Chloride Level 104 98-107 mmol/L Carbon Dioxide Level 30 20-31 mmol/L Anion Gap 6 5-15 Blood Urea Nitrogen 14 9-23 mg/dL Creatinine 1.35 H 0.700-1.30 mg/dL Glomerular Filtration Rate Calc 54 >90 mL/min BUN/Creatinine Ratio 10.4 10.0-20.0 Serum Glucose 159 H 74-106 mg/dL Calcium Level 10.8 H 8.7-10.4 mg/dL Troponin I High Sensitivity 6 </=54 ng/L CHEST RADIOGRAPH Indication: sob Technique: Single frontal view of the chest was obtained COMPARISON: XY CHEST PORTABLE on DOS: 03/18/24, XY CHEST PORTABLE on DOS: 11/02/22 FINDINGS: Lines and Tubes: None Lungs: Clear Pleura: No effusion. No pneumothorax. Cardiomediastinal contours: Unremarkable Bones: Unremarkable IMPRESSION: No acute disease. Assessment/Plan Assessment/Plan Assessment Dyspnea Hypokalemia ELAYNE Hyperglycemia Tobacco use History of hypertension History of hyperlipidemia History of prostate enlargement History of TURP Plan Admit to [facility] / [facility] EKG Chest x-ray noted Troponin negative Replete lytes Hemoglobin A1c ISS and Accu-Cheks UA Echo ordered IV fluids Antiemetics Pain management Duo nebs DVT prophylaxis-Lovenox PUD prophylaxis-not indicated no history of GERD or GI bleed Home medications reconciled Discussed plan of care with patient and nurse Counseled patient on cessation of tobacco abuse Plan discussed with: Patient My Orders Orders - ANN LOO Procedure Category Date Status Time Potassium Er Tablet PHA 07/25/24 Transmitted (Klor-Con Tablet) 10:00 Admit ADMIT 07/25/24 Transmitted 10:00 Allergies MARCELA 07/25/24 Transmitted 10:00 Code Status CODE 07/25/24 Transmitted 10:00 Ondansetron Hcl PHA 07/25/24 Transmitted (Zofran) 10:00 Enoxaparin Sodium PHA 07/25/24 Transmitted (Lovenox) 10:00 Complete Blood Count LAB 07/26/24 Verified 04:00 Comprehensive LAB 07/26/24 Verified Metabolic Panel 04:00 Cardiac DIET 07/25/24 Transmitted Diet-2gna,Lofat,Lochol Lunch Echo 2d Mode Cardiac US 07/25/24 Logged DOP 10:00 Acetaminophen Tablet PHA 07/25/24 Transmitted (Tylenol Tablet) 10:00 Urinalysis LAB 07/25/24 Transmitted 10:00 NS PHA 07/25/24 Verified 10:15 Date of Service: Jul 25, 2024 Billing Provider: ANN LOO Common Visit Codes: [id number] INP/OBS CARE (HIGH) ANN LOO Jul 25, 2024 10:08
[2024-07-25] MEDS ORDERED: TAMS0.4C39 PO (10:09)
[2024-07-25] MEDS ORDERED: ASPI-325 PO (10:09)
[2024-07-25] MEDS ORDERED: NIFE90TA75 (10:09)
[2024-07-25] MEDS: SODIUM CHLORIDE 0.9% 1,000 ML IV SCH (10:35)
[2024-07-25] MEDS: POTASSIUM CHL 20 Meq TABLET PO ONE (10:48)
--- NOTE | 2024-07-25 13:20 | DVH ---
CT HEAD WITHOUT CONTRAST INDICATION: Syncope : 78 old Male Syncope EXAM DATE: 07/25/2024 12:47 PM COMPARISON: CT HEAD WITHOUT CONTRAST on DOS: 03/18/24, CT HEAD WITHOUT CONTRAST on DOS: 03/04/24, CT H EAD WITHOUT CONTRAST on DOS: 11/02/22 RADIATION DOSE: CTDIvol: 62.2 mGy, DLP: 996.85 mGy*cm PROCEDURE: CT scans of the head were obtained from the vertex to the skull base. Sagittal and coronal reconstructions were provided. All CT scans at this medical facility are performed using dose modulation techniques as appropriate t o a performed exam including the following: Automated exposure control was utilized; adjustment of th e MA and/or KV according to patient size; and use of iterative reconstruction technique. FINDINGS: There is sulcal and ventricular prominence. The brainshows normal morphology and gutierres-whi te matter differentiation, without intracranial hemorrhage, extra-axial fluid collection, mass effect or acute large vessel infarct. The ventricles are normal in size. The basal cisterns are patent. The skull and visible facial bones are intact. Right mastoid effusion. The paranasal sinuses, mastoid ai r cells and middle ear cavities are well-aerated. The soft tissues of the scalp are unremarkable. IMPRESSION: Right mastoid effusion. No acute intracranial abnormality.
[2024-07-25] MEDS: hydrALAZINE HCL 25 MG TAB PO SCH (14:00)
[2024-07-25] MEDS: ENOXAPARIN SOD 40 MG/0.4 ML SYRINGE SC SCH (14:58)
--- NOTE | 2024-07-25 16:06 | DVHSR ---
APPROVED REPORT EXAM: LIMITED Two-dimensional and M-mode echocardiogram with Doppler and color Doppler. Blood Pressure: 128/61 mmHg INDICATION SOB RISK FACTORS Height: 66, Weight: 158 DIMENSIONS LVDd (3.8-5.7cm)LA (2D) (1.9-4.0cm)Aortic Root3.6 (2.0-3.7cm) LVDs (2.5-4.0cm)LA (MM) (1.9-4.0cm)Aortic Cusp Exc1.9 (1.5-2.0cm) EF (%) 69.0 (55-70%)Rt. Atrium (1.9-4.0cm)Asc. Aorta cm Mitral Valve MitralMitral Stenosis E wave0.61m/sMV Mean GR.mmHg A wave0.84m/sMV Peak GR.mmHg E/A ratio0.72D MVAcm2 DECEL [id number] 1/2 Timems Aortic Valve Aortic ValveAortic Stenosis V11.03m/Estiven Mean GR.5mmHg V21.51m/Estiven Peak GR.9mmHg LVOT Diameter1.8 (1.8-2.4cm)Doppler AVA1.73cm2 Other Information Technically limited study due to body habitus, patient position, patient moving and patient holding his breath during exam. Conclusion lvef 55-60% mild LVH RV normal function left atirum enlarged mild no severe valve abnormalities noted aortic sclerosis noted mild
--- NOTE | 2024-07-25 17:45 | DVHINCON2 ---
Date Seen: Jul 25, 2024 Referring Physician VESNA Everett Reason for Consultation Bradycardia History of Present Illness This is a 78-year-old male patient who presents to the emergency room with chief complaint of generalized weakness, lightheadedness, and shortness of breath that began at 7:00 a.m. today. He decided to come to the emergency room for further evaluation. Cardiology was consulted for bradycardia. Initial twelve lead electrocardiogram reveals normal sinus rhythm with PVCs. At the time of assessment, the patient is in normal sinus rhythm on continuous sales representative printing supplies. Significant past medical history includes hypertension, dyslipidemia, and benign prostatic hyperplasia. Per bedside RN, the patient was noted to become bradycardic while in the emergency room. At time of assessment, the patient is now on the telemetry floor. No cardiac strips printed to confirm bradycardia from emergency room. Current medical records custodian shows no bradycardic events. Past Medical History Past medical history reviewed. No other significant than mentioned above. Past Surgical History TURP Family History: Diabetes mellitus G8 MOTHER FH: cancer G8 FATHER Family History Family history reviewed. Social History Patient has a 40 pack-year history, now smokes approximately two cigarettes per day Denies any illicit drug use Denies any alcohol use Allergies: Coded Allergies: No Known Drug Allergy (Verified Allergy, Unknown, 12/01/22) Home Meds Active Scripts Carvedilol (COREG) 12.5 Mg Tab, 12.5 MG PO Q12HR for 30 Days, #60 TAB Prov:RICHMOND LEIVA RESIDENT 03/07/24 Valsartan (Valsartan) 80 Mg Tab, 320 MG PO DAILY for 30 Days, #120 TAB Prov:RICHMOND LEIVA RESIDENT 03/06/24 Prazosin Hcl (Minipres) 1 Mg Cp, 1 MG PO Q12HR for 30 Days, #60 CAP Prov:RICHMOND LEIVA RESIDENT 03/06/24 Reported Medications Aspirin (Aspirin Low Dose) 81 Mg Tab, 1 TAB PO DAILY 07/25/24 Nifedipine (Nifedipine Er) 90 Mg Tab 07/25/24 Tamsulosin Hcl (Tamsulosin Hcl) 0.4 Mg Cap, CAP PO 07/25/24 Cholecalciferol (D3 5000) 5,000 Unit Cap, 1 CAP PO QWEEKLY for 84 Days, #12 03/05/24 Lovastatin (Lovastatin) 40 Mg Tab, 1 TAB PO HS 03/04/24 Hctz (Hydrochlorothiazide) 25 Mg Tab, 1 TAB PO DAILY 03/04/24 Hydralazine Hcl (Hydralazine Hcl) 100 Mg Tab, 1 TAB PO TID 03/04/24 Home Meds Home medications reviewed. Current Medications Current Medications Medications (Trade) Dose Ordered Sig/Kika Route PRN Reason Start Time Stop Time Status Last Admin Ondansetron HCl (Zofran) 4 mg Q4HP PRN IV NAUSEA / VOMITING 07/25/24 10:00 Enoxaparin Sodium (Lovenox) 40 mg DAILY SC 07/25/24 10:00 07/25/24 14:58 Acetaminophen (Tylenol Tablet) 650 mg Q6HP PRN PO PAIN SCALE 1-3 OR TEMP>100.4 07/25/24 10:00 Sodium Chloride 1,000 ml @ 100 mls/hr Q10H IV 07/25/24 10:15 07/25/24 13:05 Albuterol (Ventolin Medneb) 2.5 mg Q4HPRN PRN NEB SHORTNESS OF BREATH 07/25/24 10:15 Ipratropium [place] (Atrovent Medneb) 0.5 mg Q4HPRN PRN NEB SHORTNESS OF BREATH 07/25/24 10:15 Carvedilol (Coreg Tablet) 12.5 mg Q12HR PO 07/25/24 22:00 07/25/24 13:04 DC Hydrochlorothiazide (hydroCHLOROthiazide TABLET) 25 mg DAILY PO 07/26/24 10:00 Valsartan (Diovan) 320 mg DAILY PO 07/26/24 10:00 Hydralazine HCl (Apresoline Tablet) 100 mg TID PO 07/25/24 14:00 Atorvastatin Calcium (Lipitor) 10 mg HS PO 07/25/24 22:00 Aspirin (Ecotrin Enteric Coated Tablet) 81 mg DAILY PO 07/26/24 10:00 Tamsulosin HCl (Flomax) 0.4 mg DAILY PO 07/26/24 10:00 Cholecalciferol (Vitamin D3 Tablet) 5,000 unit Q7D PO 07/26/24 10:00 Nifedipine (Procardia Xl (Time-Release)) 90 mg DAILY PO 07/26/24 10:00 Carvedilol (Coreg Tablet) 3.125 mg Q12HR PO 07/25/24 22:00 Review of Systems Constitutional: Generalized weakness Ears, Nose, & Throat: No symptom reported Eyes: No symptom reported Neurological: Dizziness Pulmonary/Respiratory: Shortness of breath Cardiovascular: No symptom reported Gastrointestinal: No symptom reported Genitourinary: No symptom reported Musculoskeletal: No symptom reported Skin: No symptom reported Psychiatric: No symptom reported Endocrine: No symptom reported Hematologic/Lymphatic: No symptom reported Vital Signs Vital Signs Date Time Temp Pulse Resp B/P (MAP) Pulse Ox O2 Delivery O2 Flow Rate FiO2 07/25/24 17:00 97.8 85 18 120/70 (87) 96 97.8 07/25/24 10:39 0.0 21 07/25/24 10:31 Room Air* Physical Exam General Appearance: Cooperative. Well-developed. Well-nourished. No acute distress. Pulmonary/Respiratory: Clear, bilateral breaths sounds. Cardiovascular/Chest: Regular rate and rhythm. Peripheral Pulses: 2+ Radial (R). 2+ Radial (L). 2+ Pedal (R). 2+ Pedal (L) Abdominal Exam: Normal bowel sounds. . Ankle Exam: Negative ankle edema Lower extremities: Negative lower extremity edema Neuro/Mental Status: A/OX4, coherent. Thoughts/Psych: Normal thought pattern. Appropriate mood and affect. Good judgment and insight. Appearance: No acute distress. Skin Exam: Normal inspection. Normal color. Warm and dry. Labs/Diagnostic Data Labs Test 07/25/24 12:50 07/25/24 08:09 Range/Units Lactic Acid Level 1.3 0.4-2.0 mmol/L White Blood Count 5.8 4.4-10.8 10^3/uL Red Blood Count 4.55 4.5-5.90 10^6/uL Hemoglobin 15.2 13.5-17.5 g/dL Hematocrit 42.9 41.0-53.0 % Mean Corpuscular Volume 94.1 80.0-100.0 fL Mean Corpuscular Hemoglobin 33.4 H 28.0-32.0 pg Mean Corpuscular Hemoglobin Concent 35.4 32.0-36.0 g/dL Red Cell Distribution Width 13.2 11.8-14.3 % Platelet Count 215 140-450 10^3/uL Mean Platelet Volume 7.3 6.9-10.8 fL Neutrophils (%) (Auto) 74.7 37.0-80.0 % Lymphocytes (%) (Auto) 15.9 10.0-50.0 % Monocytes (%) (Auto) 5.2 0.0-12.0 % Eosinophils (%) (Auto) 3.0 0.0-7.0 % Basophils (%) (Auto) 1.2 0.0-2.0 % Neutrophils # (Auto) 4.3 1.6-8.6 10 ^3/uL Lymphocytes # (Auto) 0.9 0.4-5.4 10 ^3/uL Monocytes # (Auto) 0.3 0-1.3 10 ^3/uL Eosinophils # (Auto) 0.2 0-0.8 10 ^3/uL Basophils # (Auto) 0.1 0-0.2 10 ^3/uL Nucleated Red Blood Cells 0.0 % Sodium Level 140 136-145 mmol/L Potassium Level 3.1 L 3.5-5.1 mmol/L Chloride Level 104 98-107 mmol/L Carbon Dioxide Level 30 20-31 mmol/L Anion Gap 6 5-15 Blood Urea Nitrogen 14 9-23 mg/dL Creatinine 1.35 H 0.700-1.30 mg/dL Glomerular Filtration Rate Calc 54 >90 mL/min BUN/Creatinine Ratio 10.4 10.0-20.0 Serum Glucose 159 H 74-106 mg/dL Calcium Level 10.8 H 8.7-10.4 mg/dL Troponin I High Sensitivity 6 </=54 ng/L Assessment Questionable sinus bradycardia Hypertension Dyslipidemia BPH Tobacco use Plan/Recommendation We will continue with the following plan/recommendations (Dr. Bar): Case discussed with . Transthoracic echocardiogram reveals EF 55-60% with no severe valve abnormalities. Cardiology consulted for bradycardia. Per bedside RN, the patient was noted to become bradycardic while in the emergency room. At time of assessment, the patient is now on the telemetry floor. No cardiac strips printed to confirm bradycardia from emergency room. Current medical records custodian shows no bradycardic events. We will recommend to avoid AV zach blocking agents which can induced bradycardia. We will also recommend close cardiac surveillance. Notify Cardiology immediately for any ECG changes. Thank you for allowing us to care for this patient. Please call with any questions or concerns. Critical care time spent: 43 minutes This medical document was created using an electronic medical record system with voice recognition software and computerized dictation system. Although this document has been carefully reviewed, there might still be some phonetic and typographical errors. Occasional wrong-word or ``sound-alike substitutions may have occurred due to the inherent limitations of voice recognition software. These areas are purely typographical due to imperfections of the software programs and do not reflect any compromise in the patient's medical care. Please read the chart carefully and recognize, using context, where these substitutions have occurred. Plan discussed with: Patient NYHA Physical activity limitations: NA Date of Service: Jul 25, 2024 Billing Provider: FCO MORSE Cardiology Common Codes: 21088-[id number] INP/OBS CARE (High) Cardiology Consultation Codes: [id number] CONSULT <45MIN FCO MORSE Jul 25, 2024 17:45
--- NOTE | 2024-07-25 18:26 | ECG ---
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
[2024-07-25] MEDS ORDERED: CARVEDILOL 12.5 MG TAB PO SCH (22:00)
[2024-07-25] MEDS ORDERED: CARVEDILOL 3.125 MG TAB PO SCH (22:00)
[2024-07-25] MEDS: ATORVASTATIN 20 MG TAB PO SCH (22:05)
[2024-07-26] VITALS (10 sets, daily range): BP systolic 116–175; BP diastolic 63–95; PULSE 72–92; RESP 12–20; TEMP 97.3–98.3; O2SAT 94–100
[2024-07-26] MEDS: ACETAMINOPHEN 325 MG TAB PO PRN (06:05)
[2024-07-26 07:29] LABS: Alanine Aminotransferase 11 U/L (7-40); Albumin 3.8 g/dL (3.2-4.8); Alkaline Phosphatase 69 U/L (46-116); Anion Gap 10 (5-15); Aspartate Aminotransferase 15 U/L (13-40); BUN/Creatinine Ratio 11.5 (10.0-20.0); Blood Urea Nitrogen 14 mg/dL (9-23); Calcium 9.6 mg/dL (8.7-10.4); Carbon Dioxide 23 mmol/L (20-31); Glucose 84 mg/dL (74-106); Magnesium 1.9 mg/dL (1.6-2.6); Sodium 141 mmol/L (136-145)
[2024-07-26 07:30] LABS: Bilirubin, Total 0.8 mg/dL (0.2-1.0)
[2024-07-26 07:36] LABS: Basophils # (auto) 0 10 ^3/uL (0-0.2); Basophils % (auto) 0.3 % (0.0-2.0); Eosinophils # (auto) 0.1 10 ^3/uL (0-0.8); Eosinophils % (auto) 0.7 % (0.0-7.0); Hematocrit 40.6 % (41.0-53.0); Lymphocytes % (auto) 11.3 % (10.0-50.0); Mean Corpuscular Hemoglobin 32.4 pg (28.0-32.0); Mean Corpuscular Hgb Conc. 34.5 g/dL (32.0-36.0); Mean Corpuscular Volume 93.9 fL (80.0-100.0); Monocytes # (auto) 0.5 10 ^3/uL (0-1.3); Monocytes % (auto) 5.3 % (0.0-12.0); Neutrophils # (auto) 7.4 10 ^3/uL (1.6-8.6); Neutrophils % (auto) 82.4 % (37.0-80.0); Nucleated Red Blood Cells % 0.2 %; Platelet Count (auto) 201 10^3/uL (140-450); Red Blood Cells 4.32 10^6/uL (4.5-5.90); Red Cell Distribution Width 12.8 % (11.8-14.3); White Blood Cell 8.9 10^3/uL (4.4-10.8)
[2024-07-26 07:47] LABS: Chloride 108 mmol/L (98-107); Potassium 2.8 mmol/L (3.5-5.1); Total Protein 5.7 g/dL (5.7-8.2)
[2024-07-26] MEDS: ALBUTEROL SULF 2.5 MG/0.5ML(0.5%) NEB SOLN NEB PRN (09:49)
[2024-07-26] MEDS: IPRATROPIUM BROM 0.5 MG/2.5ML INH SOL NEB PRN (09:49)
[2024-07-26] MEDS: NIFEdipine ER 30 MG TAB PO SCH (10:25)
[2024-07-26] MEDS: VALSARTAN 80 MG TAB PO SCH (10:25)
[2024-07-26] MEDS: ASPirin-EC 81 mg tab PO SCH (10:27)
[2024-07-26] MEDS: hydroCHLOROthiazide 25 MG TAB PO SCH (10:27)
[2024-07-26] MEDS: TAMSULOSIN HYDROCHLORIDE 0.4 MG CAP PO SCH (10:27)
[2024-07-26] MEDS: CHOLECALCIFEROL (VITD3) 1,000UNIT=25mCg TAB PO SCH (10:28)
[2024-07-26] MEDS: PANTOPRAZOLE 40 MG/10 ML VIAL INJ IV SCH (10:30)
--- NOTE | 2024-07-26 11:26 | DVHPN2 ---
Subjective The patient seen and examined at bedside. Complains of being tired. Reviewed: Care Plan, H&P, Labs, Medications, Previous Orders, Radiology Changes from previous H/P or p: No Changes Respiratory: Shortness of breath Objective Vitals Vital Signs Date Time Temp Pulse Resp B/P (MAP) Pulse Ox O2 Delivery O2 Flow Rate FiO2 07/26/24 10:27 175/94 07/26/24 09:49 81 12 96 07/26/24 09:49 Room Air* 0 21 07/26/24 05:00 98.3 98.3 Intake/Output Intake and Output 07/26/24 07:00 Intake Total 1700 ml Balance 1700 ml Intake Oral 200 ml IV Total 1500 ml # Voids 2 # Bowel Movements 2 General Appearance: Alert, Oriented X3, Cooperative, No acute distress HEENT: Atraumatic, PERRLA, EOMI, Mucous membr. moist/pink Neck: Supple Lungs: Clear to auscultation, Normal air movement Cardiovascular: Regular rate, Normal S1, Normal S2, No murmurs, Gallops, Rubs Abdomen: Normal bowel sounds, Soft, No tenderness Neuro: Cranial nerves 3-12 NL Psych/Mental Status: Mental status NL Medications Current Medications Medications Dose Ordered Sig/Kika Route Start Time Stop Time Status Last Admin Dose Admin Ondansetron HCl 4 mg Q4HP PRN IV 07/25/24 10:00 Enoxaparin Sodium 40 mg DAILY SC 07/25/24 10:00 07/26/24 10:29 40 MG Acetaminophen 650 mg Q6HP PRN PO 07/25/24 10:00 07/26/24 06:05 650 MG Sodium Chloride 1,000 ml @ 100 mls/hr Q10H IV 07/25/24 10:15 07/25/24 13:05 100 MLS/HR Albuterol 2.5 mg Q4HPRN PRN NEB 07/25/24 10:15 07/26/24 09:49 2.5 MG Ipratropium [place] 0.5 mg Q4HPRN PRN NEB 07/25/24 10:15 07/26/24 09:49 0.5 MG Hydrochlorothiazide 25 mg DAILY PO 07/26/24 10:00 07/26/24 10:27 25 MG Valsartan 320 mg DAILY PO 07/26/24 10:00 07/26/24 10:25 320 MG Hydralazine HCl 100 mg TID PO 07/25/24 14:00 07/26/24 05:56 100 MG Atorvastatin Calcium 10 mg HS PO 07/25/24 22:00 07/25/24 22:05 10 MG Aspirin 81 mg DAILY PO 07/26/24 10:00 07/26/24 10:27 81 MG Tamsulosin HCl 0.4 mg DAILY PO 07/26/24 10:00 07/26/24 10:27 0.4 MG Cholecalciferol 5,000 unit Q7D PO 07/26/24 10:00 07/26/24 10:28 5,000 UNIT Nifedipine 90 mg DAILY PO 07/26/24 10:00 07/26/24 10:25 90 MG Pantoprazole Sodium 40 mg BID IV 07/26/24 10:00 07/26/24 10:30 40 MG Laboratory Results Laboratory Tests 07/26/24 06:02 Chemistry Test 07/26/24 06:02 Albumin 3.8 g/dL (3.2-4.8) Calcium Level 9.6 mg/dL (8.7-10.4) Magnesium Level 1.9 mg/dL (1.6-2.6) Total Protein 5.7 g/dL (5.7-8.2) LFT Test 07/26/24 06:02 Alanine Aminotransferase (ALT) 11 U/L (7-40) Alkaline Phosphatase 69 U/L (46-116) Aspartate Amino Transferase (AST) 15 U/L (13-40) Total Bilirubin 0.8 mg/dL (0.2-1.0) Labs and/or images reviewed: Labs reviewed by me Assessment/Plan Assessment/Plan Dyspnea Hypokalemia ELAYNE Hyperglycemia Tobacco use History of hypertension History of hyperlipidemia History of prostate enlargement History of TURP Continue current management. Replace K as need Continue current HTN medication Continue IVF Waiting for race steward to see the patient. Plan discussed with: Patient Date of Service: Jul 26, 2024 Billing Provider: MYRON JEWELL MD Common Visit Codes: [id number] INP/OBS CARE(HIGH) MYRON JEWELL MD Jul 26, 2024 11:26
[2024-07-26] MEDS: POTASSIUM CHL 20 Meq TABLET PO ONE (17:33)
[2024-07-27] VITALS (10 sets, daily range): BP systolic 104–143; BP diastolic 68–97; PULSE 76–92; RESP 17–19; TEMP 97.7–98.5; O2SAT 94–97
[2024-07-27 11:42] LABS: Urine Bacteria None Seen /hpf (None Seen)
--- NOTE | 2024-07-27 11:44 | DVHPN2 ---
Subjective The patient seen and examined at bedside. Still complains of palpitation. Reviewed: Care Plan, H&P, Labs, Medications, Previous Orders, Radiology Changes from previous H/P or p: No Changes Respiratory: Shortness of breath Objective Vitals Vital Signs Date Time Temp Pulse Resp B/P (MAP) Pulse Ox O2 Delivery O2 Flow Rate FiO2 07/27/24 10:30 95 Room Air* 0 21 07/27/24 09:39 132/79 07/27/24 05:00 97.7 77 19 97.7 Intake/Output Intake and Output 07/27/24 06:59 Intake Total 1376 ml Balance 1376 ml Intake Oral 1376 ml # Voids 5 General Appearance: Alert, Oriented X3, Cooperative HEENT: Atraumatic, PERRLA, EOMI, Mucous membr. moist/pink Neck: Supple Lungs: Clear to auscultation, Normal air movement Cardiovascular: Regular rate, Normal S1, Normal S2, No murmurs, Gallops, Rubs Abdomen: Normal bowel sounds, Soft, No tenderness Neuro: Cranial nerves 3-12 NL Psych/Mental Status: Mental status NL Medications Current Medications Medications Dose Ordered Sig/Kika Route Start Time Stop Time Status Last Admin Dose Admin Ondansetron HCl 4 mg Q4HP PRN IV 07/25/24 10:00 Enoxaparin Sodium 40 mg DAILY SC 07/25/24 10:00 07/27/24 09:40 40 MG Acetaminophen 650 mg Q6HP PRN PO 07/25/24 10:00 07/26/24 06:05 650 MG Sodium Chloride 1,000 ml @ 100 mls/hr Q10H IV 07/25/24 10:15 07/25/24 13:05 100 MLS/HR Albuterol 2.5 mg Q4HPRN PRN NEB 07/25/24 10:15 07/26/24 09:49 2.5 MG Ipratropium [place] 0.5 mg Q4HPRN PRN NEB 07/25/24 10:15 07/26/24 09:49 0.5 MG Hydrochlorothiazide 25 mg DAILY PO 07/26/24 10:00 07/27/24 09:38 25 MG Valsartan 320 mg DAILY PO 07/26/24 10:00 07/26/24 10:25 320 MG Hydralazine HCl 100 mg TID PO 07/25/24 14:00 07/27/24 06:28 100 MG Atorvastatin Calcium 10 mg HS PO 07/25/24 22:00 07/26/24 21:50 10 MG Aspirin 81 mg DAILY PO 07/26/24 10:00 07/27/24 09:38 81 MG Tamsulosin HCl 0.4 mg DAILY PO 07/26/24 10:00 07/27/24 09:38 0.4 MG Cholecalciferol 5,000 unit Q7D PO 07/26/24 10:00 07/26/24 10:28 5,000 UNIT Nifedipine 90 mg DAILY PO 07/26/24 10:00 07/27/24 09:39 90 MG Pantoprazole Sodium 40 mg BID IV 07/26/24 10:00 07/27/24 09:37 40 MG Laboratory Results Laboratory Tests 07/26/24 06:02 Urinalysis Test 07/27/24 11:39 Urine Color Pending Urine Clarity Pending Urine pH Pending Urine Specific [place] Pending Urine Protein Pending Urine Ketones Pending Urine Blood Pending Urine Nitrite Pending Urine Bilirubin Pending Urine Urobilinogen Pending Urine Leukocyte Esterase Pending Urine RBC Pending Urine Microscopic WBC Pending Urine Squamous Epithelial Cells Pending Urine Bacteria Pending Urine Glucose Pending Microbiology Microbiology Date/Time Source Procedure Growth Status 07/26/24 07:00 Stool Stool Culture - Preliminary Resulted 07/26/24 07:00 Stool Shiga Toxin I & II - Final Resulted 07/25/24 13:05 Blood Blood Culture - Preliminary NO GROWTH AFTER 24 HOURS OF INCUBATION. Resulted Labs and/or images reviewed: Labs reviewed by me Assessment/Plan Assessment/Plan Dyspnea Hypokalemia ELAYNE Hyperglycemia Tobacco use History of hypertension History of hyperlipidemia History of prostate enlargement History of TURP Continue current management. Replace K as need Continue current HTN medication Continue IVF Waiting for minute clerk to see the patient. This medical document was created using an electronic medical record system with [employer] direct computerized dictation system. Although this document has been carefully reviewed, there may still be some phonetic and typographical errors. These areas are purely typographical due to imperfections of the software programs, and do not reflect any compromise in the patient's medical care. Plan discussed with: Patient Date of Service: Jul 27, 2024 Billing Provider: MYRON JEWELL MD Common Visit Codes: [id number] INP/OBS CARE(HIGH) MYRON JEWELL MD Jul 27, 2024 11:44
[2024-07-27 11:53] LABS: Urine Blood Negative /uL (Negative); Urine Clarity Clear (Clear); Urine Color Light-Yellow (Yellow); Urine Protein, UAD Negative (Negative); Urine Specific Gravity 1.009 (1.001-1.035); Urine Squamous Epithelial Cell None Seen /hpf (<5); Urine Urobilinogen Normal (Negative); Urine WBC < 1 /HPF (0-3); Urine pH 6.5 (5.0-9.0)
[2024-07-27 14:42] LABS: Basophils # (auto) 0 10 ^3/uL (0-0.2); Basophils % (auto) 0.4 % (0.0-2.0); Eosinophils # (auto) 0.1 10 ^3/uL (0-0.8); Hematocrit 41.9 % (41.0-53.0); Hemoglobin 14.4 g/dL (13.5-17.5); Lymphocytes # (auto) 1.2 10 ^3/uL (0.4-5.4); Lymphocytes % (auto) 19.3 % (10.0-50.0); Mean Corpuscular Hemoglobin 32.6 pg (28.0-32.0); Mean Corpuscular Hgb Conc. 34.4 g/dL (32.0-36.0); Mean Corpuscular Volume 94.6 fL (80.0-100.0); Monocytes # (auto) 0.4 10 ^3/uL (0-1.3); Neutrophils # (auto) 4.7 10 ^3/uL (1.6-8.6); Neutrophils % (auto) 72.3 % (37.0-80.0); Platelet Count (auto) 196 10^3/uL (140-450); Red Blood Cells 4.43 10^6/uL (4.5-5.90); Red Cell Distribution Width 13.2 % (11.8-14.3); White Blood Cell 6.5 10^3/uL (4.4-10.8)
[2024-07-27 14:59] LABS: Alanine Aminotransferase 12 U/L (7-40); Albumin 4.1 g/dL (3.2-4.8); Alkaline Phosphatase 69 U/L (46-116); Anion Gap 7 (5-15); Aspartate Aminotransferase 18 U/L (13-40); BUN/Creatinine Ratio 11.1 (10.0-20.0); Blood Urea Nitrogen 13 mg/dL (9-23); Calcium 9.8 mg/dL (8.7-10.4); Carbon Dioxide 28 mmol/L (20-31); Chloride 106 mmol/L (98-107); Glucose 97 mg/dL (74-106); Sodium 141 mmol/L (136-145); Total Protein 6.1 g/dL (5.7-8.2)
[2024-07-27 15:00] LABS: Bilirubin, Total 0.7 mg/dL (0.2-1.0)
[2024-07-27 15:02] LABS: Potassium 2.9 mmol/L (3.5-5.1)
--- NOTE | 2024-07-27 22:08 | DVHINCON2 ---
Date of service: Jul 27, [address] Gabriel Mendiola Reason for Consultation Diarrhea and blood in stool History of Present Illness This is a 78-year-old male patient who presents to the emergency room with chief complaint of generalized weakness, lightheadedness, and shortness of breath that began at 7:00 a.m. today. He decided to come to the emergency room for further evaluation. Per bedside RN, the patient was noted to become bradycardic while in the emergency room. GI was consulted as initially the patient did have some diarrhea this was followed by a small spot of blood. However he has no diarrhea today and there was no further bleeding. He has not had any prior colonoscopy. His H&H is stable. Past Medical History Significant past medical history includes hypertension, dyslipidemia, and benign prostatic hyperplasia. Past Surgical History TURP Family History: Diabetes mellitus G8 MOTHER FH: cancer G8 FATHER Allergies: Coded Allergies: No Known Drug Allergy (Verified Allergy, Unknown, 12/01/22) Home Meds Active Scripts Carvedilol (COREG) 12.5 Mg Tab, 12.5 MG PO Q12HR for 30 Days, #60 TAB Prov:RICHMOND LEIVA RESIDENT 03/07/24 Valsartan (Valsartan) 80 Mg Tab, 320 MG PO DAILY for 30 Days, #120 TAB Prov:RICHMOND LEIVA RESIDENT 03/06/24 Prazosin Hcl (Minipres) 1 Mg Cp, 1 MG PO Q12HR for 30 Days, #60 CAP Prov:RICHMOND LEIVA RESIDENT 03/06/24 Reported Medications Aspirin (Aspirin Low Dose) 81 Mg Tab, 1 TAB PO DAILY 07/25/24 Nifedipine (Nifedipine Er) 90 Mg Tab 07/25/24 Tamsulosin Hcl (Tamsulosin Hcl) 0.4 Mg Cap, CAP PO 07/25/24 Cholecalciferol (D3 5000) 5,000 Unit Cap, 1 CAP PO QWEEKLY for 84 Days, #12 03/05/24 Lovastatin (Lovastatin) 40 Mg Tab, 1 TAB PO HS 03/04/24 Hctz (Hydrochlorothiazide) 25 Mg Tab, 1 TAB PO DAILY 03/04/24 Hydralazine Hcl (Hydralazine Hcl) 100 Mg Tab, 1 TAB PO TID 03/04/24 Vital Signs Vital Signs Date Time Temp Pulse Resp B/P (MAP) Pulse Ox O2 Delivery O2 Flow Rate FiO2 07/27/24 21:10 134/68 07/27/24 21:00 98.0 76 17 94 98.0 07/27/24 20:01 Room Air 07/27/24 20:01 0 21 Physical Exam General Appearance: Alert, Oriented X3, Cooperative, No acute distress HEENT: Atraumatic, PERRLA, EOMI, Mucous membr. moist/pink Respiratory: Clear to auscultation, Normal air movement Cardiovascular: Regular rate, Normal S1, Normal S2, No murmurs Abdominal: Normal bowel sounds, Soft, No tenderness, No hepatospenomegaly Extremities: No clubbing, No cyanosis, Normal pulses, No tenderness/swelling Skin: No significant lesion Neuro: Normal gait, Normal speech, Strength at 5/5 X4 ext, Normal tone, Sensation intact Psych/Mental Status: Mental status NL, Mood NL Labs/Diagnostic Data Labs Test 07/27/24 14:18 07/27/24 11:39 07/26/24 07:00 07/26/24 06:02 Range/Units White Blood Count 6.5 # 4.4-10.8 10^3/uL Red Blood Count 4.43 L 4.5-5.90 10^6/uL Hemoglobin 14.4 13.5-17.5 g/dL Hematocrit 41.9 41.0-53.0 % Mean Corpuscular Volume 94.6 80.0-100.0 fL Mean Corpuscular Hemoglobin 32.6 H 28.0-32.0 pg Mean Corpuscular Hemoglobin Concent 34.4 32.0-36.0 g/dL Red Cell Distribution Width 13.2 11.8-14.3 % Platelet Count 196 140-450 10^3/uL Mean Platelet Volume 7.7 6.9-10.8 fL Neutrophils (%) (Auto) 72.3 37.0-80.0 % Lymphocytes (%) (Auto) 19.3 10.0-50.0 % Monocytes (%) (Auto) 6.0 0.0-12.0 % Eosinophils (%) (Auto) 2.0 0.0-7.0 % Basophils (%) (Auto) 0.4 0.0-2.0 % Neutrophils # (Auto) 4.7 1.6-8.6 10 ^3/uL Lymphocytes # (Auto) 1.2 0.4-5.4 10 ^3/uL Monocytes # (Auto) 0.4 0-1.3 10 ^3/uL Eosinophils # (Auto) 0.1 0-0.8 10 ^3/uL Basophils # (Auto) 0 0-0.2 10 ^3/uL Nucleated Red Blood Cells 0.0 % Sodium Level 141 136-145 mmol/L Potassium Level 2.9 L 3.5-5.1 mmol/L Chloride Level 106 98-107 mmol/L Carbon Dioxide Level 28 20-31 mmol/L Anion Gap 7 5-15 Blood Urea Nitrogen 13 9-23 mg/dL Creatinine 1.17 0.700-1.30 mg/dL Glomerular Filtration Rate Calc 64 >90 mL/min BUN/Creatinine Ratio 11.1 10.0-20.0 Serum Glucose 97 74-106 mg/dL Calcium Level 9.8 8.7-10.4 mg/dL Total Bilirubin 0.7 0.2-1.0 mg/dL Aspartate Amino Transferase (AST) 18 13-40 U/L Alanine Aminotransferase (ALT) 12 7-40 U/L Alkaline Phosphatase 69 46-116 U/L Total Protein 6.1 5.7-8.2 g/dL Albumin 4.1 3.2-4.8 g/dL Urine Color Light-yellow Yellow Urine Clarity Clear Clear Urine pH 6.5 5.0-9.0 Urine Specific [place] 1.009 1.001-1.035 Urine Protein Negative Negative Urine Ketones Negative Negative Urine Blood Negative Negative /uL Urine Nitrite Negative Negative Urine Bilirubin Negative Negative Urine Urobilinogen Normal Negative mg/dL Urine Leukocyte Esterase Negative Negative /uL Urine RBC 1 0 - 3 /hpf Urine Microscopic WBC < 1 0-3 /HPF Urine Squamous Epithelial Cells None seen <5 /hpf Urine Bacteria None seen None Seen /hpf Urine Glucose Normal Normal mg/dL Stool Occult Blood Positive Negative Stool Occult Blood Sample #3 Negative Magnesium Level 1.9 1.6-2.6 mg/dL Test 07/25/24 12:50 07/25/24 08:09 Range/Units Lactic Acid Level 1.3 0.4-2.0 mmol/L Troponin I High Sensitivity 6 </=54 ng/L Microbiology Date/Time Source Procedure Growth Status 07/26/24 07:00 Stool Stool Culture - Preliminary Resulted 07/26/24 07:00 Stool Shiga Toxin I & II - Final Resulted 07/25/24 13:05 Blood Blood Culture - Preliminary NO GROWTH AFTER 48 HOURS OF INCU[address]ATION. Resulted CT Abd Pelvis 03/09 IMPRESSION: 1. 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 No urinary calculi are seen. 2. Mild left hydronephrosis and hydroureter likely secondary to vesicoureteral reflux. 3. The urinary bladder is moderately distended extending above the level of umbilicus. Consider catheterization. 4. Moderate prostatic hyperplasia. 5. Subcentimeter nonobstructive bilateral renal calculi. 6. Colonic diverticula without diverticulitis. Atherosclerotic disease. 7. Multilevel degenerative disc disease and posterior facet arthropathy of the lumbar spine. 8. Several indeterminate lucent lesions are seen in the vertebrae degenerative, hemangioma or lytic neoplasm. Correlate with history of known malignancy. Further evaluation with lumbar spine MRI without and with IV contrast could be completed if clinically warranted. Whole-body bone scan May also be helpful. Problems(with codes): (1) Chest pain of unknown etiology (2) Duplicated right renal collecting system (3) BPH loc w urin obs/LUTS Plan/Recommendation Plan Continue supportive care monitor labs Advance diet as tolerated Patient was given my contact information to arrange outpatient elective colonoscopy Once again thank you for allowing me to participate in the care of this patient Plan discussed with: Patient ANTHONY JAVIER MD Jul 27, 2024 22:08
[2024-07-28] VITALS (11 sets, daily range): BP systolic 119–150; BP diastolic 71–80; PULSE 71–89; RESP 16–20; TEMP 97.6–98.1; O2SAT 93–97
[2024-07-28 07:00] LABS: Basophils # (auto) 0 10 ^3/uL (0-0.2); Basophils % (auto) 0.7 % (0.0-2.0); Eosinophils # (auto) 0.2 10 ^3/uL (0-0.8); Eosinophils % (auto) 3.6 % (0.0-7.0); Hematocrit 40.6 % (41.0-53.0); Hemoglobin 14.3 g/dL (13.5-17.5); Lymphocytes % (auto) 20.7 % (10.0-50.0); Mean Corpuscular Hgb Conc. 35.1 g/dL (32.0-36.0); Mean Corpuscular Volume 94.1 fL (80.0-100.0); Monocytes # (auto) 0.3 10 ^3/uL (0-1.3); Monocytes % (auto) 6.9 % (0.0-12.0); Neutrophils # (auto) 3.3 10 ^3/uL (1.6-8.6); Neutrophils % (auto) 68.1 % (37.0-80.0); Nucleated Red Blood Cells % 0.1 %; Platelet Count (auto) 196 10^3/uL (140-450); Red Blood Cells 4.32 10^6/uL (4.5-5.90); Red Cell Distribution Width 13.3 % (11.8-14.3); White Blood Cell 4.9 10^3/uL (4.4-10.8)
[2024-07-28 07:24] LABS: Alanine Aminotransferase 10 U/L (7-40); Alkaline Phosphatase 65 U/L (46-116); Anion Gap 9 (5-15); BUN/Creatinine Ratio 11.2 (10.0-20.0); Blood Urea Nitrogen 13 mg/dL (9-23); Calcium 9.9 mg/dL (8.7-10.4); Carbon Dioxide 29 mmol/L (20-31); Chloride 105 mmol/L (98-107); Glucose 89 mg/dL (74-106); Sodium 143 mmol/L (136-145); Total Protein 6.2 g/dL (5.7-8.2)
[2024-07-28 07:25] LABS: Albumin 4.1 g/dL (3.2-4.8); Aspartate Aminotransferase 15 U/L (13-40); Bilirubin, Total 0.7 mg/dL (0.2-1.0); Potassium 3.1 mmol/L (3.5-5.1)
[2024-07-28] MEDS: SPIRONOLACTONE 25 MG TAB PO ONE (14:56)
--- NOTE | 2024-07-28 16:18 | DVHPN2 ---
Subjective 07/28 patient presenting for vague weakness and dyspnea on exertion. 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 Initially hypotensive and given fluid is now hypertensive and continued home antihypertensives. Patient continues to be hypertensive and hypokalemic. Noting patient was on hydrochlorothiazide vision cause dehydration and electrolyte abnormality which is now stopped. CT head was done which showed right mastoid effusion which is unconcerning for inpatient stay. It was likely patient has some sort of endocrine syndrome as he was hypertension hypokalemia and we will need outpatient workup patient already received spironolactone and angiotensin urine test can not be done for 4 weeks. We will defer to outpatient. For now we will stop hydrochlorothiazide and start Aldactone hoping for resolution of the symptoms and issues. Patient was 78 years old we will get PT to evaluate ongoing weakness and ambulation. Echo was done which was normal. Reviewed: H&P Changes from previous H/P or p: No Changes General: Per HPI Respiratory: Shortness of breath Objective Vitals Vital Signs Date Time Temp Pulse Resp B/P (MAP) Pulse Ox O2 Delivery O2 Flow Rate FiO2 07/28/24 14:58 144/76 07/28/24 13:00 97.8 79 18 97 97.8 07/28/24 08:00 Room Air* 0 21 Intake/Output Intake and Output 07/28/24 07:00 Intake Total 954 ml Balance 954 ml Intake Oral 954 ml # Voids 5 Exam GEN: Healthy appearing, well-developed, NAD. HEENT: NC/AT; MMM. CV: RRR, no m/r/g. LUNGS: CTAB, no w/r/c. ABD: Soft, NT/ND, NBS, no masses or organomegaly. EXT: skin Warm, well perfused. no rashes. No clubbing, cyanosis, or edema. NEURO: Ambulating with no limitations. No focal deficits. Medications Current Medications Medications Dose Ordered Sig/Kika Route Start Time Stop Time Status Last Admin Dose Admin Ondansetron HCl 4 mg Q4HP PRN IV 07/25/24 10:00 Enoxaparin Sodium 40 mg DAILY SC 07/25/24 10:00 07/28/24 09:23 40 MG Acetaminophen 650 mg Q6HP PRN PO 07/25/24 10:00 07/27/24 19:42 650 MG Sodium Chloride 1,000 ml @ 100 mls/hr Q10H IV 07/25/24 10:15 07/25/24 13:05 100 MLS/HR Valsartan 320 mg DAILY PO 07/26/24 10:00 07/28/24 09:20 320 MG Hydralazine HCl 100 mg TID PO 07/25/24 14:00 07/28/24 14:58 100 MG Atorvastatin Calcium 10 mg HS PO 07/25/24 22:00 07/27/24 21:07 10 MG Aspirin 81 mg DAILY PO 07/26/24 10:00 07/28/24 09:21 81 MG Tamsulosin HCl 0.4 mg DAILY PO 07/26/24 10:00 07/28/24 09:21 0.4 MG Cholecalciferol 5,000 unit Q7D PO 07/26/24 10:00 07/26/24 10:28 5,000 UNIT Nifedipine 90 mg DAILY PO 07/26/24 10:00 07/28/24 09:21 90 MG Pantoprazole Sodium 40 mg BID IV 07/26/24 10:00 07/28/24 09:21 40 MG Doxazosin Mesylate 2 mg HS PO 07/28/24 22:00 Spironolactone 25 mg DAILY PO 07/29/24 10:00 Laboratory Results Laboratory Tests 07/28/24 06:03 Chemistry Test 07/28/24 06:03 Albumin 4.1 g/dL (3.2-4.8) Calcium Level 9.9 mg/dL (8.7-10.4) Total Protein 6.2 g/dL (5.7-8.2) LFT Test 07/28/24 06:03 Alanine Aminotransferase (ALT) 10 U/L (7-40) Alkaline Phosphatase 65 U/L (46-116) Aspartate Amino Transferase (AST) 15 U/L (13-40) Total Bilirubin 0.7 mg/dL (0.2-1.0) Urinalysis Test 07/27/24 11:39 Urine Color Light-yellow (Yellow) Urine Clarity Clear (Clear) Urine pH 6.5 (5.0-9.0) Urine Specific [place] 1.009 (1.001-1.035) Urine Protein Negative (Negative) Urine Ketones Negative (Negative) Urine Blood Negative /uL (Negative) Urine Nitrite Negative (Negative) Urine Bilirubin Negative (Negative) Urine Urobilinogen Normal mg/dL (Negative) Urine Leukocyte Esterase Negative /uL (Negative) Urine RBC 1 /hpf (0 - 3) Urine Microscopic WBC < 1 /HPF (0-3) Urine Squamous Epithelial Cells None seen /hpf (<5) Urine Bacteria None seen /hpf (None Seen) Urine Glucose Normal mg/dL (Normal) Microbiology Microbiology Date/Time Source Procedure Growth Status 07/27/24 11:39 Voided Urine Urine Culture - Preliminary Resulted 07/26/24 07:00 Stool Stool Culture - Preliminary Resulted 07/26/24 07:00 Stool Shiga Toxin I & II - Final Resulted 07/25/24 13:05 Blood Blood Culture - Preliminary NO GROWTH AFTER 72 HOURS OF INCUBATION. Resulted Labs and/or images reviewed: Labs reviewed by me, Image(s) reviewed by me Assessment/Plan Assessment/Plan 07/28 patient presenting for vague weakness and dyspnea on exertion. 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 Initially hypotensive and given fluid is now hypertensive and continued home antihypertensives. Patient continues to be hypertensive and hypokalemic. Noting patient was on hydrochlorothiazide vision cause dehydration and electrolyte abnormality which is now stopped. CT head was done which showed right mastoid effusion which is unconcerning for inpatient stay. It was likely patient has some sort of endocrine syndrome as he was hypertension hypokalemia and we will need outpatient workup patient already received spironolactone and angiotensin urine test can not be done for 4 weeks. We will defer to outpatient. For now we will stop hydrochlorothiazide and start Aldactone hoping for resolution of the symptoms and issues. Patient was 78 years old we will get PT to evaluate ongoing weakness and ambulation. Echo was done which was normal. ACS ruled out Hypertension Hypokalemia Hypotensive Generalized weakness , likely due to polypharmacy Cons or similar syndrome possible, unable to rule out Structural heart disease ruled out History of hypertension History of BPH Tobacco dependence, current -Bactroban yellow continue home medications Hold off doxazosin Continue DVT prophylaxis Continue antihypertensive hydralazine 100 t.i.d., Procardia 90 mg, , valsartan 320 mg daily gastroenteritis Stop hydrochlorothiazide continue Protonix GI prophylaxis Start spironolactone 25 daily Continue tamsulosin Flomax PT eval today. Plan discussed with: Patient My Orders Orders - JER HANNA MD Procedure Category Date Status Time Doxazosin Mesyl PHA 07/28/24 In Process Tablet (Cardura 22:00 Spironolactone PHA 07/29/24 In Process (Aldactone) 10:00 Date of Service: Jul 28, 2024 Billing Provider: JER HANNA MD Common Visit Codes: [id number] INP/OBS CARE(HIGH) JER HANNA MD Jul 28, 2024 16:18
[2024-07-28] MEDS ORDERED: DOXAZOSIN MESYL 2 MG TAB PO SCH (22:00)
--- NOTE | 2024-07-28 22:48 | DVHPN2 ---
Progress Note - Dictate Date Seen: Jul 28, 2024 Medical Necessity Reason Pt with a Central, PICC or Fol: No Subjective No new GI complaints Patient is tolerating a diet Patient's did have about four or five bowel movements recorded No GI bleeding is reported at this time Hemoglobin is stable at 14 Urine culture and stool bacterial culture were negative vital signs Vital Sign Date Time Temp Pulse Resp B/P (MAP) Pulse Ox O2 Delivery O2 Flow Rate FiO2 07/28/24 21:29 119/73 07/28/24 21:00 97.9 71 17 96 97.9 07/28/24 10:00 Room Air* 0 21 Total Intake and Output 07/27/24 07/27/24 07/28/24 15:00 23:00 07:00 Intake Total 236 ml 518 ml 200 ml Balance 236 ml 518 ml 200 ml medications Current Medications Medications Dose Ordered Sig/Kika Route Start Time Stop Time Status Last Admin Dose Admin Ondansetron HCl 4 mg Q4HP PRN IV 07/25/24 10:00 Enoxaparin Sodium 40 mg DAILY SC 07/25/24 10:00 07/28/24 09:23 40 MG Acetaminophen 650 mg Q6HP PRN PO 07/25/24 10:00 07/27/24 19:42 650 MG Valsartan 320 mg DAILY PO 07/26/24 10:00 07/28/24 09:20 320 MG Hydralazine HCl 100 mg TID PO 07/25/24 14:00 07/28/24 14:58 100 MG Atorvastatin Calcium 10 mg HS PO 07/25/24 22:00 07/28/24 21:29 10 MG Aspirin 81 mg DAILY PO 07/26/24 10:00 07/28/24 09:21 81 MG Tamsulosin HCl 0.4 mg DAILY PO 07/26/24 10:00 07/28/24 09:21 0.4 MG Cholecalciferol 5,000 unit Q7D PO 07/26/24 10:00 07/26/24 10:28 5,000 UNIT Nifedipine 90 mg DAILY PO 07/26/24 10:00 07/28/24 09:21 90 MG Pantoprazole Sodium 40 mg BID IV 07/26/24 10:00 07/28/24 21:29 40 MG Spironolactone 25 mg DAILY PO 07/29/24 10:00 objective GEN: Healthy appearing, well-developed, NAD. HEENT: NC/AT; MMM. CV: RRR, no m/r/g. LUNGS: CTAB, no w/r/c. ABD: Soft, NT/ND, NBS, no masses or organomegaly. EXT: skin Warm, well perfused. no rashes. No clubbing, cyanosis, or edema. NEURO: Ambulating with no limitations. No focal deficits. laboratory and microbiology Laboratory Tests 07/28/24 06:03 Test 07/28/24 06:03 Range/Units Serum Glucose 89 74-106 mg/dL Problems(with codes): (1) Chest pain of unknown etiology (2) Acute on chronic urinary retention (3) Diarrhea (4) Weakness (5) Rectal bleeding Prognosis Plan Continue supportive care Check stool for occult blood and stool for WBC hold laxatives Patient is on low-dose diuretics PT evaluation requested Patient advised outpatient follow up with me for elective colonoscopy if symptoms persist Plan discussed with: Patient ANTHONY JAVIER MD Jul 28, 2024 22:48
[2024-07-29 01:00] VITALS: BP 128/76; PULSE 67; RESP 17; TEMP 98.1; O2SAT 97
[2024-07-29 05:00] VITALS: BP 135/78; PULSE 70; RESP 17; TEMP 98.2; O2SAT 96
[2024-07-29] MEDS: ONDANSETRON HCL 4 MG/2 ML VIAL IV PRN (06:48)
[2024-07-29 06:52] LABS: Alanine Aminotransferase 10 U/L (7-40); Alkaline Phosphatase 64 U/L (46-116); Anion Gap 11 (5-15); Aspartate Aminotransferase 19 U/L (13-40); BUN/Creatinine Ratio 10.1 (10.0-20.0); Blood Urea Nitrogen 12 mg/dL (9-23); Calcium 9.8 mg/dL (8.7-10.4); Carbon Dioxide 27 mmol/L (20-31); Chloride 105 mmol/L (98-107); Glucose 91 mg/dL (74-106); Sodium 143 mmol/L (136-145); Total Protein 5.9 g/dL (5.7-8.2)
[2024-07-29 06:53] LABS: Bilirubin, Total 0.7 mg/dL (0.2-1.0)
[2024-07-29 06:55] LABS: Potassium 2.9 mmol/L (3.5-5.1)
[2024-07-29 07:27] LABS: Basophils # (auto) 0 10 ^3/uL (0-0.2); Basophils % (auto) 0.5 % (0.0-2.0); Eosinophils # (auto) 0.1 10 ^3/uL (0-0.8); Hematocrit 39.5 % (41.0-53.0); Hemoglobin 13.7 g/dL (13.5-17.5); Lymphocytes # (auto) 1.1 10 ^3/uL (0.4-5.4); Lymphocytes % (auto) 22.1 % (10.0-50.0); Mean Corpuscular Hemoglobin 32.3 pg (28.0-32.0); Mean Corpuscular Hgb Conc. 34.7 g/dL (32.0-36.0); Mean Corpuscular Volume 93.2 fL (80.0-100.0); Monocytes # (auto) 0.3 10 ^3/uL (0-1.3); Monocytes % (auto) 6.6 % (0.0-12.0); Neutrophils # (auto) 3.2 10 ^3/uL (1.6-8.6); Neutrophils % (auto) 67.8 % (37.0-80.0); Nucleated Red Blood Cells % 0.2 %; Platelet Count (auto) 200 10^3/uL (140-450); Red Blood Cells 4.24 10^6/uL (4.5-5.90); White Blood Cell 4.8 10^3/uL (4.4-10.8)
[2024-07-29 09:13] VITALS: BP 126/69; PULSE 70; RESP 16; TEMP 98.1; O2SAT 97
[2024-07-29 09:30] VITALS: O2SAT 97
[2024-07-29] MEDS: POTASSIUM CHL 20 Meq TABLET PO SCH (10:00)
[2024-07-29] MEDS: SPIRONOLACTONE 25 MG TAB PO SCH (10:02)
[2024-07-29] MEDS ORDERED: SPIR25TA8 PO (11:21)
[2024-07-29] MEDS ORDERED: POTA-180 PO (11:21)
--- NOTE | 2024-07-29 11:26 | DVHDS2 ---
Discharge Summary Date of Admission Jul 25, 2024 at 10:00 Date of Discharge: Jul 29, 2024 Labs/Diagnostic Data: Laboratory Results Test 07/29/24 06:01 07/28/24 06:03 07/27/24 11:39 07/26/24 07:00 White Blood Count 4.8 10^3/uL (4.4-10.8) Red Blood Count 4.24 10^6/uL (4.5-5.90) Hemoglobin 13.7 g/dL (13.5-17.5) Hematocrit 39.5 % (41.0-53.0) Mean Corpuscular Volume 93.2 fL (80.0-100.0) Mean Corpuscular Hemoglobin 32.3 pg (28.0-32.0) Mean Corpuscular Hemoglobin Concent 34.7 g/dL (32.0-36.0) Red Cell Distribution Width 13.0 % (11.8-14.3) Platelet Count 200 10^3/uL (140-450) Mean Platelet Volume 7.8 fL (6.9-10.8) Neutrophils (%) (Auto) 67.8 % (37.0-80.0) Lymphocytes (%) (Auto) 22.1 % (10.0-50.0) Monocytes (%) (Auto) 6.6 % (0.0-12.0) Eosinophils (%) (Auto) 3.0 % (0.0-7.0) Basophils (%) (Auto) 0.5 % (0.0-2.0) Neutrophils # (Auto) 3.2 10 ^3/uL (1.6-8.6) Lymphocytes # (Auto) 1.1 10 ^3/uL (0.4-5.4) Monocytes # (Auto) 0.3 10 ^3/uL (0-1.3) Eosinophils # (Auto) 0.1 10 ^3/uL (0-0.8) Basophils # (Auto) 0 10 ^3/uL (0-0.2) Nucleated Red Blood Cells 0.2 % Sodium Level 143 mmol/L (136-145) Potassium Level 2.9 mmol/L (3.5-5.1) Chloride Level 105 mmol/L (98-107) Carbon Dioxide Level 27 mmol/L (20-31) Anion Gap 11 (5-15) Blood Urea Nitrogen 12 mg/dL (9-23) Creatinine 1.19 mg/dL (0.700-1.30) Glomerular Filtration Rate Calc 63 mL/min (>90) BUN/Creatinine Ratio 10.1 (10.0-20.0) Serum Glucose 91 mg/dL (74-106) Calcium Level 9.8 mg/dL (8.7-10.4) Total Bilirubin 0.7 mg/dL (0.2-1.0) Aspartate Amino Transferase (AST) 19 U/L (13-40) Alanine Aminotransferase (ALT) 10 U/L (7-40) Alkaline Phosphatase 64 U/L (46-116) Total Protein 5.9 g/dL (5.7-8.2) Albumin 4.0 g/dL (3.2-4.8) Carcinoembryonic Antigen 1.06 ng/mL (<=5.0) Urine Color Light-yellow (Yellow) Urine Clarity Clear (Clear) Urine pH 6.5 (5.0-9.0) Urine Specific [place] 1.009 (1.001-1.035) Urine Protein Negative (Negative) Urine Ketones Negative (Negative) Urine Blood Negative /uL (Negative) Urine Nitrite Negative (Negative) Urine Bilirubin Negative (Negative) Urine Urobilinogen Normal mg/dL (Negative) Urine Leukocyte Esterase Negative /uL (Negative) Urine RBC 1 /hpf (0 - 3) Urine Microscopic WBC < 1 /HPF (0-3) Urine Squamous Epithelial Cells None seen /hpf (<5) Urine Bacteria None seen /hpf (None Seen) Urine Glucose Normal mg/dL (Normal) Stool Occult Blood Positive (Negative) Stool Occult Blood Sample #3 (Negative) Test 07/26/24 06:02 07/25/24 12:50 07/25/24 08:09 Magnesium Level 1.9 mg/dL (1.6-2.6) Lactic Acid Level 1.3 mmol/L (0.4-2.0) Troponin I High Sensitivity 6 ng/L (</=54) Other Laboratory Tests 07/29/24 06:01 Brief Hx & Hospital Course: HPI: 78-year-old male with past medical history of hypertension, hyperlipidemia, prostate disease with TURP who presents to the ED with shortness of breath x1 day. Patient reports that today was worse than the prior days. He states that when he ambulates he gets short of breath. Patient is also hard of hearing. Patient reports that he smokes a few cigarettes per day. Patient denies any chest pain, fever, chills, lightheadedness, weakness, dizziness, abdominal pain, nausea, vomiting, diarrhea, recent sick contacts, recent travels or recent ingestion of spoiled food. Summary: patient presenting for vague weakness and dyspnea on exertion. 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 Initially hypotensive and given fluid is now hypertensive and continued home antihypertensives. Patient continues to be hypertensive and hypokalemic. Noting patient was on hydrochlorothiazide which can cause dehydration and electrolyte abnormality. HCTZ stopped. CT head was done which showed right mastoid effusion which is unconcerning for this inpatient stay, patient also does not complain of any ear complaints. PT eval done patient was stable independent and has no requirements. Echo was done which was normal. It was likely patient has some sort of endocrine syndrome as he was hypertension hypokalemia and we will need outpatient workup patient already received spironolactone and aldosterone renin test can not be done for 4 weeks. We will defer to outpatient endocrinology. For now we will stop hydrochlorothiazide and start Aldactone. With this regimen blood pressure remains stable and hyperkalemia male no improved. Patient did have diarrhea which was initially thought to be causing hypokalemia but diarrhea resolved and patient continues to have a hypokalemia. Patient was started on daily supplement potassium and can be discharged with outpatient follow up as per plan below. Diagnosis: Generalized weakness , likely Hypokalemia and/or diarrhea and/or iatrogenic due to hydrochlorothiazide Electrolyte abnormalities, iatrogenic due to hydrochlorothiazide possible Stool occult blood positive diarrhea, resolved ACS ruled out Structural heart disease ruled out Hypertension Hypokalemia Conns syndrome possible, unable to rule out Chronic constipation History of hypertension History of BPH Tobacco dependence, current Discharge plan: -Start potassium supplement 20 mEq daily -Started Aldactone 25 mg daily -Stops Hydrochlorothiazide -Stop hydralazine - continue other medications including nifedipine 90 mg, valsartan 320 mg, prazosin) - continue other medications not mentioned above -Follow up with PCP to review discharge and medication med rec -Follow up/referral to endocrinology to workup possible conns syndrome - follow-up GI outpatient for outpatient colonoscopy Condition at Discharge: Fair Final Diagnosis/Problems List Generalized weakness , likely Hypokalemia and/or diarrhea and/or iatrogenic due to hydrochlorothiazide Electrolyte abnormalities, iatrogenic due to hydrochlorothiazide possible Stool occult blood positive diarrhea, resolved ACS ruled out Structural heart disease ruled out Hypertension Hypokalemia Conns syndrome possible, unable to rule out Chronic constipation History of hypertension History of BPH Tobacco dependence, current Discharge Disposition: Home Discharge Instruct/Medications Diet: Regular Activity: No Restrictions, As Tolerated Follow Up/Referral: pcp, endocrinology, gi Medications: below Discharge Statement: "Patient was advised to return to the ER or call 911 if any headaches, dizziness, shortness of breath, chest pain, abdominal pain, bleeding, fevers, or worsening of medical condition. Patient was counseled about treatment plan, medications, possible side effects, patientverbalized understanding. All questions were answered to the best of my ability. This discharge took greater then 30 minutes in planning, reviewing documentation, counseling the patient, and discussing with other team members." Date of Service: Jul 29, 2024 Billing Provider: JER HANNA MD Common Visit Codes: 56388-AAK/OBS DISCH DAY >30min JER HANNA MD Jul 29, 2024 11:26
[2024-07-29] MEDS: POTASSIUM CHLORIDE 40 MEQ, LIDOCAINE 1% (LOCAL ANESTH.) 4 ML in SODIUM CHL 0.9% 250 ML IV ONE (12:48)
[2024-07-29 13:23] VITALS: BP 144/78; PULSE 66; RESP 16; TEMP 97.9; O2SAT 98
[2024-07-29 13:53] VITALS: BP 126/69; TEMP 36.6
--- NOTE | 2024-07-29 20:23 | DVHPN2 ---
Progress Note - Dictate Date Seen: Jul 29, 2024 Medical Necessity Reason Pt with a Central, PICC or Fol: No Subjective No new GI complaints Patient is tolerating a diet Patient's did have about four or five bowel movements recorded No GI bleeding is reported at this time Hemoglobin is stable at 14 Urine culture and stool bacterial culture were negative vital signs Vital Sign Date Time Temp Pulse Resp B/P (MAP) Pulse Ox O2 Delivery O2 Flow Rate FiO2 07/29/24 14:55 144/78 07/29/24 13:53 36.6 07/29/24 13:23 66 16 98 07/29/24 09:30 Room Air 0.0 07/29/24 09:30 21 Total Intake and Output 07/28/24 07/28/24 07/29/24 15:00 23:00 07:00 Intake Total 840 ml 350 ml Balance 840 ml 350 ml objective GEN: Healthy appearing, well-developed, NAD. HEENT: NC/AT; MMM. CV: RRR, no m/r/g. LUNGS: CTAB, no w/r/c. ABD: Soft, NT/ND, NBS, no masses or organomegaly. EXT: skin Warm, well perfused. no rashes. No clubbing, cyanosis, or edema. NEURO: Ambulating with no limitations. No focal deficits. laboratory and microbiology Laboratory Tests 07/29/24 06:01 Test 07/29/24 06:01 Range/Units Serum Glucose 91 74-106 mg/dL Problems(with codes): (1) Rectal bleeding (2) Weakness (3) Diarrhea (4) Acute on chronic urinary retention Prognosis Plan Continue supportive care Stool for occult blood positive and stool for WBC pending; CEA normal hold laxatives Patient is on low-dose diuretics Discharge planning in progress Patient advised outpatient follow up with me for elective colonoscopy if symptoms persist Plan discussed with: Patient, Other (Dr Rdz) ANTHONY JAVIER MD Jul 29, 2024 20:23
== END 2024-07-29 15:18 | disposition home or self-care (01) | DRG 641 ==
LOC: ER 07:29 → OVERFLOW 10:00 → CENTRAL 16:46 → TELE-CENTR 16:49 → CENTRAL 07-29 00:32
PROVIDERS: ADMIT Student in an Organized Health Care Education/Training Program; ATTEND Student in an Organized Health Care Education/Training Program
DX: E87.6 Hypokalemia (principal); N17.9 Acute kidney failure, unspecified; A08.4 Viral intestinal infection, unspecified; E87.5 Hyperkalemia; F17.210 Nicotine dependence, cigarettes, uncomplicated; T50.2X5A Adverse effect of carbonic-anhydrase inhibitors, benzothiadiazides and other diuretics, initial encounter; I49.3 Ventricular premature depolarization; R00.1 Bradycardia, unspecified; E78.5 Hyperlipidemia, unspecified; E86.0 Dehydration; K57.30 Diverticulosis of large intestine without perforation or abscess without bleeding; N40.0 Benign prostatic hyperplasia without lower urinary tract symptoms; I10 Essential (primary) hypertension; E26.01 Conn's syndrome; K59.09 Other constipation; R73.9 Hyperglycemia, unspecified; Q63.8 Other specified congenital malformations of kidney; Z79.82 Long term (current) use of aspirin; Z79.899 Other long term (current) drug therapy; Z90.79 Acquired absence of other genital organ(s); Z83.3 Family history of diabetes mellitus; Y92.89 Other specified places as the place of occurrence of the external cause; I25.2 Old myocardial infarction
CPT/HCPCS: 36415; 70450; 71045; 80048; 80053; 81001; 82270; 82378; 83605; 83735; 84484; 85025; 87040; 87045; 87086; 87427; 93005; 93306; 94640; 97163; G0378; J2003; J2405; J2470

== ENCOUNTER 2025-02-11 15:06 | Inpatient (IN) | payer MEDICARE, BC ==
[~2025-02-11] VITALS: Ht 167.6 cm; Wt 65.4 kg
[~2025-02-11 15:06] MED LIST changes: +ASPI-325 PO; -HYDR100T10 PO; -HYDR25TA5 PO; +NIFE90TA75; +POTA-180 PO; +SPIR25TA8 PO; +TAMS0.4C39 PO
--- NOTE | 2025-02-11 15:18 | ED.PDOC ---
History of Present Illness HPI Comments 79 -year-old male BIBA with prior medical history of Prostate, high lipids, hypertension: Surgical history of TURP and a chief complaint of generalized weakness. EMS report on picking the patient up at home due from the patient having generalized weakness, dizziness for several weeks but worsened today. EMS state that the patient has been having these symptoms associated with shortness a breath and N/V x1 episode in route to the ED. EMS state on given the patient from 100 mL fluid and the show blood pressure being 225/90 on scene and currently 190/93 in the ambulance [facility]. Denies any other symptoms at this time. Denies chills, fever, /D, CP. No other associated symptoms, modifiers, recent injuries or sick contacts present at this time. Time Seen by MD: 15:15 Primary Care Provider: FRANKIE Reviewed Notes: Nurses Notes, Medications, Allergies Allergies: Coded Allergies: No Known Drug Allergy (Verified Allergy, Unknown, 12/01/22) Home Meds Active Scripts Spironolactone (Spironolactone) 25 Mg Tab, 1 TAB PO DAILY, #30 TAB 1 Refill Prov:JER HANNA MD 07/29/24 Potassium Chloride (Potassium Chloride ER) 20 Meq Tab, 20 MEQ PO DAILY for 30 Days, #30 TAB 1 Refill Prov:JER HANNA MD 07/29/24 Carvedilol (COREG) 12.5 Mg Tab, 12.5 MG PO Q12HR for 30 Days, #60 TAB Prov:RICHMOND LEIVA RESIDENT 03/07/24 Valsartan (Valsartan) 80 Mg Tab, 320 MG PO DAILY for 30 Days, #120 TAB Prov:RICHMOND LEIVA RESIDENT 03/06/24 Prazosin Hcl (Minipres) 1 Mg Cp, 1 MG PO Q12HR for 30 Days, #60 CAP Prov:RICHMOND LEIVA RESIDENT 03/06/24 Reported Medications Aspirin (Aspirin Low Dose) 81 Mg Tab, 1 TAB PO DAILY 07/25/24 Nifedipine (Nifedipine Er) 90 Mg Tab 07/25/24 Tamsulosin Hcl (Tamsulosin Hcl) 0.4 Mg Cap, CAP PO 07/25/24 Cholecalciferol (D3 5000) 5,000 Unit Cap, 1 CAP PO QWEEKLY for 84 Days, #12 03/05/24 Lovastatin (Lovastatin) 40 Mg Tab, 1 TAB PO HS 03/04/24 Information Source: Patient, Emergency Med Personnel Mode of Arrival: EMS Severity: Moderate Timing: Weeks Duration: Since onset Prehospital treatment: None Past Medical History PAST MEDICAL HISTORY: High Lipids, HTN Past Medical History (Other): Prostate Surgical History (Other): TURP Family History Family History: Reviewed,noncontributory to illness, Unknown Social History Smoker: Unknown Alcohol: Unknown Drugs: Unknown Lives In: Home Constitutional: reports: weakness; denies: chills, diaphoresis, fatigue, fever, malaise, sweats, others EENTM: denies: blurred vision, double vision, ear bleeding, ear discharge, ear drainage, ear pain, ear ringing, eye pain, eye redness, hearing loss, mouth pain, mouth swelling, nasal discharge, nose bleeding, nose congestion, nose pain, photophobia, tearing, throat pain, throat swelling, voice changes, others Respiratory: reports: shortness of breath; denies: cough, hemoptysis, orthopnea, SOB at rest, SOB with excertion, stridor, wheezing, others Cardiovascular: denies: chest pain, dizzy spells, diaphoresis, Dyspnea on exertion, edema, irregular heart beat, left arm pain, lightheadedness, palpitations, PND, syncope, others Gastrointestinal: reports: nausea, vomiting; denies: abdomen distended, abdominal pain, blood streaked bowels, constipated, diarrhea, dysphagia, difficulty swallowing, hematemesis, melena, poor appetite, poor fluid intake, rectal bleeding, rectal pain, others Genitourinary: denies: burning, dysuria, flank pain, frequency, hematuria, incontinence, penile discharge, penile sore, pain, testicle pain, testicle swelling, urgency, others Neurological: reports: dizziness; denies: fainting, headache, left sided numbness, left sided weakness, numbness, paresthesia, pre-existing deficit, right sided numbness, right sided weakness, seizure, speech problems, tingling, tremors, weakness, others Musculoskeletal: denies: back pain, gout, joint pain, joint swelling, muscle pain, muscle stiffness, neck pain, others Integumetry: denies: bruises, change in color, change in hair/nails, dryness, laceration, lesions, lumps, rash, wounds, others Allergic/Immunocompromised: denies: Difficulty Healing, Frequent Infections, Hives, Itching, others Hematologic/Lymphatic: denies: anemia, blood clots, easy bleeding, easy bruising, swollen glands, others Endocrine: denies: excessive hunger, excessive sweating, excessive thirst, excessive urination, flushing, intolerance to cold, intolerance to heat, unexplained weight gain, unexplained weight loss, others Psychiatric: denies: anxiety, bipolar disorder, depression, hopeless, panic disorder, schizophrenia, sleepless, suicidal, others All Other Systems: Reviewed and Negative Physical Exam General Appearance: Moderate Distress, Normal HEENT: Normal ENT Inspection, Pharynx Normal, TMs Normal Neck: Full Range of Motion, Non-Tender, Normal, Normal Inspection Respiratory: Chest Non-Tender, Lungs Clear, No Accessory Muscle Use, No Respiratory Distress, Normal Breath Sounds Cardiovascular: No Edema, No JVD, No Murmur, No Gallop, Normal Peripheral Pulses, Regular Rate/Rhythm Breast Exam: Deferred Gastrointestinal: No Organomegaly, Non Tender, No Pulsatile Mass, Normal Bowel Sounds, Soft Genitalia: Deferred Pelvic: Deferred Rectal: Deferred Extremities: No calf tenderness, Normal capillary refill, Normal range of motion, Non-tender, No pedal edema Musculoskeletal : Apperance: Normal Neurologic: Alert, 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 Was a procedure done?: No EKG EKG : Pulse Rate (adult): 59 Cardiac Rhythm: NSR Differential Dx Considerations may include: TIA Electrolyte imbalance X-Ray, Labs, Meds, VS Vital Signs Date Time Temp Pulse Resp B/P (MAP) Pulse Ox O2 Delivery O2 Flow Rate FiO2 02/11/25 16:36 62 16 198/102 02/11/25 15:24 59 02/11/25 15:19 59 02/11/25 15:15 97.7 59 18 198/93 100 97.7 Lab Test 02/11/25 16:24 02/11/25 15:22 Range/Units Troponin I High Sensitivity Pending 8 </=54 ng/L White Blood Count 11.2 H 4.4-10.8 10^3/uL Red Blood Count 4.15 L 4.5-5.90 10^6/uL Hemoglobin 13.7 13.5-17.5 g/dL Hematocrit 37.6 L 41.0-53.0 % Mean Corpuscular Volume 90.7 80.0-100.0 fL Mean Corpuscular Hemoglobin 33.0 H 28.0-32.0 pg Mean Corpuscular Hemoglobin Concent 36.3 H 32.0-36.0 g/dL Red Cell Distribution Width 12.9 11.8-14.3 % Platelet Count 197 140-450 10^3/uL Mean Platelet Volume 7.5 6.9-10.8 fL Neutrophils (%) (Auto) 86.9 H 37.0-80.0 % Lymphocytes (%) (Auto) 7.9 L 10.0-50.0 % Monocytes (%) (Auto) 2.9 0.0-12.0 % Eosinophils (%) (Auto) 1.9 0.0-7.0 % Basophils (%) (Auto) 0.4 0.0-2.0 % Neutrophils # (Auto) 9.7 H 1.6-8.6 10 ^3/uL Lymphocytes # (Auto) 0.9 0.4-5.4 10 ^3/uL Monocytes # (Auto) 0.3 0-1.3 10 ^3/uL Eosinophils # (Auto) 0.2 0-0.8 10 ^3/uL Basophils # (Auto) 0 0-0.2 10 ^3/uL Nucleated Red Blood Cells 0.1 % Sodium Level 144 136-145 mmol/L Potassium Level 3.3 L 3.5-5.1 mmol/L Chloride Level 107 98-107 mmol/L Carbon Dioxide Level 28 20-31 mmol/L Anion Gap 9 5-15 Blood Urea Nitrogen 14 9-23 mg/dL Creatinine 1.29 0.700-1.30 mg/dL Glomerular Filtration Rate Calc 57 >90 mL/min BUN/Creatinine Ratio 10.9 10.0-20.0 Serum Glucose 104 74-106 mg/dL Calcium Level 9.5 8.7-10.4 mg/dL Current Medications Medications (Trade) Dose Ordered Sig/Kika Route Start Time Stop Time Status Last Admin Ondansetron HCl (Zofran) 4 mg ONCE ONCE IV 02/11/25 15:15 02/11/25 15:16 DC 02/11/25 16:35 Morphine Sulfate 2 mg ONCE ONCE IV 02/11/25 15:15 02/11/25 15:16 DC 02/11/25 16:36 Sodium Chloride 1,000 ml @ 1,000 mls/hr Q1H ONCE IV 02/11/25 15:15 02/11/25 16:14 DC 02/11/25 16:36 Patient alert. Came in because of weakness. He did have bout of vomiting prior to coming to the ER. Vitals stable. Establish intravenous access. Was given fluids. Blood pressure elevated. Was given hydralazine. Explained to the patient. Continue monitoring. Time of 1ST Reevaluation: 15:45 Reevaluation 1ST: Unchanged Patient Education/Counseling: Diagnosis, Treatment, Prognosis Family Education/Counseling: No Family Present SEPSIS Sepsis Screen Physician Orders Head Without Contrast (02/11/25 15:17) Ct Ab Pel Wo Con-No Oral Or Iv (02/11/25 15:17) Chest Portable (02/11/25 15:17) Urinalysis (02/11/25 15:08) Troponin-I Hs (02/11/25 16:08) Troponin-I Hs (02/11/25 18:08) Electrocardigram (02/11/25 15:24) Vital Signs Date Time Temp Pulse Resp B/P (MAP) Pulse Ox O2 Delivery O2 Flow Rate FiO2 02/11/25 16:36 62 16 198/102 02/11/25 15:24 59 02/11/25 15:19 59 02/11/25 15:15 97.7 59 18 198/93 100 97.7 Laboratory Tests Test 02/11/25 15:22 White Blood Count 11.2 10^3/uL (4.4-10.8) H Medications Medications Dose Ordered Sig/Kika Route Start Time Stop Time Status Last Admin Dose Admin Morphine Sulfate 2 mg ONCE ONCE IV 02/11/25 15:15 02/11/25 15:16 DC 02/11/25 16:36 Ondansetron HCl 4 mg ONCE ONCE IV 02/11/25 15:15 02/11/25 15:16 DC 02/11/25 16:35 Sodium Chloride 1,000 ml @ 1,000 mls/hr Q1H ONCE IV 02/11/25 15:15 02/11/25 16:14 DC 02/11/25 16:36 Departure 1 Departure Time of Disposition: 15:20 Impression: Primary Impression: TIA (transient ischemic attack) Additional Impression: Hypertensive urgency Disposition: ADMITTED INPATIENT Admit to: Med Surg Condition: Guarded Critical Care Note Critical Care Time?: Yes (90 min-critical care time only) Stability Stability form required: No Heart Score Heart Score: Heart Score Response (Comments) Value History Slightly Suspicious 0 EKG Normal 0 Age >65 2 Risk Factors >3 or Hx ASHD 2 Troponin Normal limit 0 Total 4 I personally scribed for ENOC CARTER MD ([email or web address]) on 02/11/25 at 15:18. Electronically submitted by Zack Steele ([email or web address]). ENOC CARTER MD Feb 11, 2025 15:18
[2025-02-11 15:36] LABS: Hematocrit 37.6 % (41.0-53.0); Hemoglobin 13.7 g/dL (13.5-17.5); Mean Corpuscular Hemoglobin 33.0 pg (28.0-32.0); Mean Corpuscular Volume 90.7 fL (80.0-100.0); Nucleated Red Blood Cells % 0.1 %
[2025-02-11 15:42] LABS: Sodium 144 mmol/L (136-145)
[2025-02-11 15:43] LABS: Anion Gap 9 (5-15); Carbon Dioxide 28 mmol/L (20-31)
[2025-02-11 15:44] LABS: Calcium 9.5 mg/dL (8.7-10.4); Chloride 107 mmol/L (98-107); Potassium 3.3 mmol/L (3.5-5.1)
[2025-02-11 15:48] LABS: BUN/Creatinine Ratio 10.9 (10.0-20.0); Blood Urea Nitrogen 14 mg/dL (9-23); Glucose 104 mg/dL (74-106)
--- NOTE | 2025-02-11 16:25 | DVH ---
CHEST RADIOGRAPH Indication: sob Technique: Single frontal view of the chest was obtained COMPARISON: XY CHEST PORTABLE on DOS: 07/25/24, XY CHEST PORTABLE on DOS: 03/18/24, XY CHEST TWO VIEWS ROUTINE on DOS: 03/04/24, XY CHEST TWO VIEWS ROUTINE on DOS: 10/12/23, XY CHEST PORTABLE on DOS: FINDINGS: Lines and Tubes: None Lungs: Clear Pleura: No effusion. No pneumothorax. Cardiomediastinal contours: Unremarkable Bones: Unremarkable IMPRESSION: No acute disease.
[2025-02-11 16:30] VITALS: PULSE 73; RESP 18; O2SAT 95
[2025-02-11] MEDS: ONDANSETRON HCL 4 MG/2 ML VIAL IV ONE ×2 (16:35→22:04)
[2025-02-11] MEDS: MORPHINE SULFATE INJ 2 MG/ml SYRG IV ONE (16:36)
[2025-02-11] MEDS: SODIUM CHLORIDE 0.9% 1,000 ML IV ONE (16:36)
--- NOTE | 2025-02-11 16:37 | DVH ---
Exam: CT CT AB PEL WO CON-NO ORAL OR IV History: colitis, pain Comparison Study: CT CT AB PEL WO CON-NO ORAL OR IV on DOS: 03/06/24, US KIDNEY on DOS: 03/05/24 Technique: Multidetector spiral CT of the abdomen was performed from lung bases to pubic symphysis. I maging was performed without IV contrast. Axial, coronal and sagittal multiplanar reformats were obta ined from the axial data set by the technologist. Radiation Dose : 1. Abdomen/Pelvis: CTDIvol 9.75 mGy, DLP 472.71 mGy*cm. Findings: Evaluation of solid organs is limited due to lack of intravenous contrast use. Lung Bases: No acute or significant lung base finding. Normal heart size. No pleural or pericardial effusion. Liver: The liver is normal in size. No focal lesions. Gallbladder and Biliary Tree: Unremarkable Spleen: Unremarkable Pancreas: The pancreas is grossly normal in appearance. Adrenal Glands: Unremarkable Kidneys: Moderate to severe right and moderate left-sided hydronephrosis and hydroureter. Urinary ravindra dder is distended. Duplex collecting system noted on the right. Bladder: Grossly unremarkable for degree of distention. Bowel: The stomach is grossly normal in appearance. Small bowel and colon are normal in caliber and d istribution. The appendix is not visualized; however, no secondary findings of acute appendicitis johanna ntified. Colonic diverticulosis. Ascites: Absent Lymphadenopathy: No mesenteric, retroperitoneal or periportal lymphadenopathy. Abdominal Wall and Mesentery: Unremarkable. Vasculature: The visualized abdominal aorta is normal in size and caliber. Evaluation of abdominal a nd pelvic vessels is limited due to lack of intravenous contrast. Pelvic Organs: Unremarkable Musculoskeletal: No aggressive focal bony lesions, acute fractures or dislocation. IMPRESSION: Severely distended urinary bladder with moderate to severe right and moderate left-sided hydronephros is and hydroureter. Radiation optimization: All CT scans at this facility use at least one of these dose optimization rusty hniques: automated exposure control mA and/or kV adjustment per patient size (includes targeted exam s where dose is matched to clinical indication) or iterative reconstruction.
--- NOTE | 2025-02-11 16:49 | DVH ---
COMPUTERIZED TOMOGRAPHY OF THE HEAD WITHOUT CONTRAST REASON FOR STUDY: dizzy COMPARISON: CT HEAD WITHOUT CONTRAST on DOS: 07/25/24, CT HEAD WITHOUT CONTRAST on DOS: 03/18/24, CT HE AD WITHOUT CONTRAST on DOS: 03/04/24, CT HEAD WITHOUT CONTRAST on DOS: 11/02/22, CT MAXILLOFACIAL WITH OUT on DOS: 11/02/22 TECHNIQUE: Helical tomographic scans were obtained through the brain. 2-D coronal and sagittal refor matted images are provided. Radiation optimization: All CT scans at this facility use at least one of these dose optimization techniques: Automated exposure control mA and/or kV adjustment per patient s ize (includes targeted exams where dose is matched to clinical indication) or iterative reconstructio n. RADIATION DOSE: CTDI: 65.31 mGy DLP: 1090.95 mGy-cm FINDINGS: No suspicious intracranial hyperdensity to suggest acute blood. 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 There is no mass effect nor midline shift. There is mild generali zed volume loss with compensatory enlargement of the CSF spaces. There is no hydrocephalus. The supra sellar cistern is intact. There are scattered periventricular and deep white matter hypodensities ludmila t are most consistent with chronic microangiopathic changes. The calvarium is intact. There is fluid filling the right mastoid and right middle ear. The left mastoid and left middle ear are clear of fl uid. There is mild mucosal thickening in the left ethmoid air cells. IMPRESSION: No acute intracranial abnormality. Mild generalized volume loss with chronic small vessel ischemic change. Fluid filling the right mastoid and right middle ear. Correlate clinically for acute otitis media / mastoiditis. Mild mucosal thickening in the left ethmoid air cells. Correlate clinically for acute sinusitis.
[2025-02-11] MEDS: hydrALAZINE HCL 20 MG/ML VL IV ONE (17:04)
[2025-02-11] MEDS: LABETALOL HCL 20 MG/4 ML VL IV ONE (18:24)
[2025-02-11 21:05] LABS: Urine Amorphous Crystal FEW /hpf (None Seen); Urine Protein, UAD Negative (Negative)
--- NOTE | 2025-02-11 21:06 | DVHHPRES ---
History of Present Illness Resident Creating Document: MARIAN SANTACRUZ History of Present Illness Patient is a 79-year-old male with past medical history of BPH s/p TURP, hypertension, hyperlipidemia and chronic otitis media, presented to [facility] ED with complaint of generalized weakness, dizziness and abd ominal pain. He has had progressive worsening lower abdominal pain, which have been ongoing for several weeks but pain worsened today, rated at 9/10 in intensity and currently 8/10 in the ED right now. Pain is described as burning, nonradiating pain, fixed to the LLQ, RLQ, nothing makes the pain better and is worsened with ambulation. Symptoms were associated with shortness of breath and one episode of nausea/vomiting en route to the ED. On evaluation in the ED, patient is afebrile, blood pressure is 147/90 mmHg. Initial labs show potassium 3.3. All other labs are within normal limits. Abdominal CT shows severely distended urinary bladder with moderate to severe right and moderate left-sided hydronephrosis and hydroureter. The patient was placed Hi catheter, started on IV antibiotics and IV fluids. Patient is admitted for further evaluation and management. Past Medical History BPH, hypertension, hyperlipidemia, chronic otitis media Past Surgical History TURP 8 years ago, bladder rupture repair at age 6, right ear tube placement 15 years ago Family History: None Past Social History Smoking: > 50 years 1 pack a day. Alcohol: >50 years. Drug: Denies. Review of Systems Review of Systems Constitutional: Generalized weakness, dizziness Eyes: No Pain, No Vision change, No Conjunctivae inflammation, No Eyelid inflammation, No Other, No Redness ENT: No Ear pain, No Ear discharge, No Nose pain, No Nose discharge, No Nose congestion, No Mouth pain, No Mouth swelling, No Throat pain, No Throat swe lling, No Other Cardiovascular: No Chest Pain, No Palpitations, No Orthopnea, No Paroxysmal No Dyspnea, No Edema, No Lt Headedness, No Other Respiratory: No Cough, No Dry, Shortness of breath, No SOB with exertion, No Wheezing, No Hemoptysis, No Pleuritic Pain, No Sputum, No Other Gastrointestinal: Nausea, Vomiting, Abdominal Pain, No Diarrhea, No Constipation, No Melena, No Hematochezia, No Other Genitourinary: No Dysuria, No Frequency, No Incontinence, No Hematuria, No Retention, No Other Musculoskeletal: No other, No neck pain, No shoulder pain, No arm pain, No back pain, No hand pain, No leg pain, No foot pain Skin: No Rash, No Lesions, No Jaundice, No Bruising, No Other Allergies: Coded Allergies: No Known Drug Allergy (Verified Allergy, Unknown, 12/01/22) Exam Vital Signs Vital Signs Date Time Temp Pulse Resp B/P (MAP) Pulse Ox O2 Delivery O2 Flow Rate FiO2 02/11/25 20:00 82 02/11/25 19:30 97.7 17 163/91 (115) 96 97.7 02/11/25 16:30 Room Air* 0 21 Exam General Appearance: Mild distress. Well developed. Well nourished. NAD Head Exam: Normal inspection Neck Exam: Normal inspection. Non-tender. Normal alignment Pulmonary/Respiratory: Chest non-tender. Clear bilateral breath sounds, no mercury cracking tester ckles, no wheezing. Cardiovascular/Chest: Regular rate and rhythm. No murmurs. No JVD. Peripheral Pulses: 2+ Radial (R). 2+ Radial (L). 2+ Pedal (R). 2+ Pedal (L) Abdominal Exam: LLQ, LLQ tenderness. Positive bowel sounds. Soft. Normal abdomen, no visible veins. No hepatospenomegaly. No masses Ankle Exam: Negative ankle edema Lower extremities: Negative lower extremity edema Neuro/Mental Status: A&O x4. Coherent. Thoughts/Psych: Normal thought pattern. Appropriate mood and affect. Good judgement and insight Skin Exam: Normal inspection. Normal color. Warm. Dry Labs/Xrays Labs Test 02/11/25 19:56 02/11/25 19:33 02/11/25 18:17 02/11/25 15:22 Range/Units POC Glucose 125 H 70-106 mg/dl Troponin I High Sensitivity 12 </=54 ng/L White Blood Count 11.2 H 4.4-10.8 10^3/uL Red Blood Count 4.15 L 4.5-5.90 10^6/uL Hemoglobin 13.7 13.5-17.5 g/dL Hematocrit 37.6 L 41.0-53.0 % Mean Corpuscular Volume 90.7 80.0-100.0 fL Mean Corpuscular Hemoglobin 33.0 H 28.0-32.0 pg Mean Corpuscular Hemoglobin Concent 36.3 H 32.0-36.0 g/dL Red Cell Distribution Width 12.9 11.8-14.3 % Platelet Count 197 140-450 10^3/uL Mean Platelet Volume 7.5 6.9-10.8 fL Neutrophils (%) (Auto) 86.9 H 37.0-80.0 % Lymphocytes (%) (Auto) 7.9 L 10.0-50.0 % Monocytes (%) (Auto) 2.9 0.0-12.0 % Eosinophils (%) (Auto) 1.9 0.0-7.0 % Basophils (%) (Auto) 0.4 0.0-2.0 % Neutrophils # (Auto) 9.7 H 1.6-8.6 10 ^3/uL Lymphocytes # (Auto) 0.9 0.4-5.4 10 ^3/uL Monocytes # (Auto) 0.3 0-1.3 10 ^3/uL Eosinophils # (Auto) 0.2 0-0.8 10 ^3/uL Basophils # (Auto) 0 0-0.2 10 ^3/uL Nucleated Red Blood Cells 0.1 % Sodium Level 144 136-145 mmol/L Potassium Level 3.3 L 3.5-5.1 mmol/L Chloride Level 107 98-107 mmol/L Carbon Dioxide Level 28 20-31 mmol/L Anion Gap 9 5-15 Blood Urea Nitrogen 14 9-23 mg/dL Creatinine 1.29 0.700-1.30 mg/dL Glomerular Filtration Rate Calc 57 >90 mL/min BUN/Creatinine Ratio 10.9 10.0-20.0 Serum Glucose 104 74-106 mg/dL Calcium Level 9.5 8.7-10.4 mg/dL SEPSIS Sepsis Screen Date sepsis recognized/suspect: Feb 11, 2025 Time Sepsis recognized/suspect: 1629 Recent Procedure: No On Antibiotic Therapy: No Respiratory Rate >20: No Heart Rate >90: No Temp<36 C (96.8 F) or >38.3 C: No SBP <90 or MAP <65 mmHG: No New Acute Mental Status Change: No Is the patient on CPAP, BIPAP,: No Physician Orders Head Without Contrast (02/11/25 15:17) Ct Ab Pel Wo Con-No Oral Or Iv (02/11/25 15:17) Chest Portable (02/11/25 15:17) Urinalysis (02/11/25 15:08) Electrocardigram (02/11/25 15:24) Vital Signs Date Time Temp Pulse Resp B/P (MAP) Pulse Ox O2 Delivery O2 Flow Rate FiO2 02/11/25 20:00 82 02/11/25 19:30 97.7 79 17 163/91 (115) 96 97.7 02/11/25 19:14 80 147/90 02/11/25 18:30 81 16 149/94 (112) 98 02/11/25 18:24 84 171/89 02/11/25 17:04 181/101 02/11/25 16:56 67 16 181/101 02/11/25 16:36 62 16 198/102 02/11/25 16:30 97.7 73 16 198/102 (134) 98 97.7 02/11/25 16:30 73 18 95 Room Air* 0 21 02/11/25 15:24 59 02/11/25 15:19 59 02/11/25 15:15 97.7 59 18 198/93 100 97.7 Laboratory Tests Test 02/11/25 15:22 White Blood Count 11.2 10^3/uL (4.4-10.8) H Medications Medications Dose Ordered Sig/Kika Route Start Time Stop Time Status Last Admin Dose Admin Hydralazine HCl 10 mg ONCE ONCE IV 02/11/25 17:00 02/11/25 17:01 DC 02/11/25 17:04 10 MG Labetalol HCl 10 mg ONCE ONCE IV 02/11/25 18:00 02/11/25 18:01 DC 02/11/25 18:24 10 MG Morphine Sulfate 2 mg ONCE ONCE IV 02/11/25 15:15 02/11/25 15:16 DC 02/11/25 16:36 2 MG Ondansetron HCl 4 mg ONCE ONCE IV 02/11/25 15:15 02/11/25 15:16 DC 02/11/25 16:35 4 MG Sodium Chloride 1,000 ml @ 1,000 mls/hr Q1H ONCE IV 02/11/25 15:15 02/11/25 16:14 DC 02/11/25 16:36 1,000 MLS/HR Assessment/Plan Assessment/Plan Acute urinary retention Acute intractable abdominal pain likely due to above Bilateral hydronephrosis Hydroureter BPH status post TURP Renal US: Right worse than left hydronephrosis. Layering stones within dilated right calices. Distended urinary bladder. CT Abdomen/pelvis: Severely distended urinary bladder with moderate to severe right and moderate left-sided hydronephrosis and hydroureter. Hi catheter Urology consult Urinalysis Ceftriaxone IV daily pain management with Thornton 1 TAB PO q4h PRN Zofran 4 MG IV q4h Acute otitis media / mastoiditis Acute sinusitis Head CT: Fluid filling the right mastoid and right middle ear. Mild mucosal thickening in the left ethmoid air cells. Hypertensive urgency Hydralazine infection 10 MG IV q6h Nifedipine 90 MG PO daily Ruled out TIA Carotid duplex: No hemodynamically significant stenosis noted in the left/right carotid system. Elevated bilateral external carotid artery velocities. Head CT: No acute intracranial abnormality. Mild generalized volume loss with chronic small vessel ischemic change. Diet: Cardiac Goals of care: Full code, discussed for >30 minutes on 02/11/25 Plan discussed with patient Plan discussed with Dr. Weber Plan discussed with: Patient Date of Service: Feb 11, 2025 Billing Provider: HARSHA WEBER MD Common Visit Codes: [id number] INP/OBS CARE (HIGH) Secondary Visit Codes: [id number] CARE PLAN 30 MINUTES MARIAN SANTACRUZ RESIDENT Feb 11, 2025 21:06 FERMIN SAWYER RESIDENT Feb 12, 2025 09:05
[2025-02-11] MEDS ORDERED: hydrALAZINE HCL 20 MG/ML VL IV PRN (21:15)
[2025-02-11] MEDS ORDERED: ONDANSETRON HCL 4 MG/2 ML VIAL IV PRN ×2 (21:15)
[2025-02-11] MEDS: POTASSIUM CHL 20 Meq TABLET PO ONE (22:03)
[2025-02-11] MEDS: HYDROcodone-ACET 5/325MG TAB PO PRN (22:03)
[2025-02-11] MEDS: SODIUM CHLOR 0.9% PF (SALINE LOCK) 10ML VIAL/SYR IV SCH (22:04)
[2025-02-11 22:25] LABS: Amphetamine Screen, Urine Neg (NEGATIVE); Barbiturate Scree,Urine Neg (NEGATIVE); Benzodiazephine Screen, Urine Neg (NEGATIVE); Cannabinoid Screen, Urine Neg (NEGATIVE); Cocaine Screen, Urine Neg (NEGATIVE); Opiate Scree,Urine Neg (NEGATIVE); Phencyclidine Screen, Urine Neg (NEGATIVE)
[2025-02-11 22:30] LABS: Alanine Aminotransferase 12.0 U/L (7-40); Albumin 4.1 g/dL (3.2-4.8); Alkaline Phosphatase 74.0 U/L (46-116); Bilirubin, Direct 0.2 mg/dL (<0.3); Bilirubin, Total 0.7 mg/dL (0.2-1.0); Magnesium 1.9 mg/dL (1.6-2.6); Total Protein 6.4 g/dL (5.7-8.2)
--- NOTE | 2025-02-11 22:34 | DVH ---
INDICATION: l/r hydronephrosis TECHNIQUE: Multiple real-time sonographic images of the kidneys and bladder were obtained. COMPARISON: Same day CT abdomen/pelvis, renal ultrasound 02/2024 FINDINGS: RIGHT kidney measures 15.8 cm in length. Severe hydronephrosis. Layering echogenic material within dilated calices. LEFT kidney measures 10.4 cm in length. [id number] hydronephrosis. No visualized stone. The bladder remains prominently distended without evidence of wall thickening or intraluminal filling defect. Both ureteral jets are visualized. IMPRESSION: 1. Right worse than left hydronephrosis. Layering stones within dilated right calices. 2. Distended urinary bladder.
[2025-02-12] VITALS (7 sets, daily range): BP systolic 111–175; BP diastolic 70–98; PULSE 67–91; RESP 16–18; TEMP 97.1–98.3; O2SAT 95–97
[2025-02-12] MEDS: TAMSULOSIN HYDROCHLORIDE 0.4 MG CAP PO ONE ×2 (00:06→09:23)
[2025-02-12] MEDS: PANTOPRAZOLE 40 MG/10 ML VIAL INJ IV ONE (00:07)
[2025-02-12] MEDS: SODIUM CHLORIDE 0.9% 1,000 ML IV ONE (00:08)
--- NOTE | 2025-02-12 01:37 | DVH ---
Carotid Duplex Clinical History: dizziness Comparison: None Technique: Duplex Doppler evaluation of the extracranial carotid and vertebral arteries including color Doppler and spectral/pulsed waveform analysis was performed. Findings: RIGHT SIDE: The peak systolic velocities are 57 cm/s in the CCA, 118 cm/s in the ICA. The ICA/CCA ratio is 2.1. The external carotid artery is patent with peak systolic velocity of 153 cm/s proximally. There is appropriate antegrade flow in the right vertebral artery. Calcified atheromatous plaque within the carotid bulb. LEFT SIDE: The peak systolic velocities are 54 cm/s in the CCA, 88 cm/s in the ICA. The ICA/CCA ratio is 1.6. The external carotid artery is patent with peak systolic velocity of 155 cm/s proximally. There is appropriate antegrade flow in the left vertebral artery. Calcified atheromatous plaque within the carotid bulb. IMPRESSION: 1. No hemodynamically significant stenosis noted in the right carotid system. 2. No hemodynamically significant stenosis noted in the left carotid system. 3. Elevated bilateral external carotid artery velocities. 4. Calcified atheromatous plaque within the bilateral carotid bulbs. Reference: Radiology 2003; 229:340-346 Normal ICA PSV is <125 cm/sec and no plaque or intimal thickening is visible sonographically additional criteria include ICA/CCA PSV ratio <2.0 and ICA EDV <40 cm/sec <50% ICA stenosis ICA PSV is <125 cm/sec and plaque or intimal thickening is visible sonographically additional criteria include ICA/CCA PSV ratio <2.0 and ICA EDV <40 cm/sec 50-69% ICA stenosis ICA PSV is 125-230 cm/sec and plaque is visible sonographically additional criteria include ICA/CCA PSV ratio of 2.0-4.0 and ICA EDV of 40-100 cm/sec 70% ICA stenosis but less than near occlusion ICA PSV is >230 cm/sec and visible plaque and luminal narrowing are seen at gutierres-scale and color Dopp ler ultrasound (the higher the Doppler parameters lie above the threshold of 230 cm/sec, the greater the likelihood of severe disease) additional criteria include ICA/CCA PSV ratio >4 and ICA EDV >100 cm/sec
[2025-02-12 06:02] LABS: Hematocrit 38.5 % (41.0-53.0); Hemoglobin 13.7 g/dL (13.5-17.5); Mean Corpuscular Hemoglobin 32.9 pg (28.0-32.0); Mean Corpuscular Volume 92.4 fL (80.0-100.0); Nucleated Red Blood Cells % 0.1 %
[2025-02-12 06:15] LABS: Albumin 3.6 g/dL (3.2-4.8); Alkaline Phosphatase 68 U/L (46-116); Anion Gap 10 (5-15); BUN/Creatinine Ratio 8.1 (10.0-20.0); Blood Urea Nitrogen 10 mg/dL (9-23); Carbon Dioxide 25 mmol/L (20-31); Glucose 79 mg/dL (74-106); Potassium 4.1 mmol/L (3.5-5.1); Total Protein 5.8 g/dL (5.7-8.2)
[2025-02-12 06:16] LABS: Bilirubin, Total 0.5 mg/dL (0.2-1.0)
[2025-02-12 06:23] LABS: Calcium 8.6 mg/dL (8.7-10.4); Chloride 111 mmol/L (98-107); Sodium 146 mmol/L (136-145)
[2025-02-12 06:26] LABS: Alanine Aminotransferase < 9 U/L (7-40)
[2025-02-12] MEDS: PANTOPRAZOLE 40 MG/10 ML VIAL INJ IV SCH (09:23)
[2025-02-12] MEDS: D5W/SOD CHL 0.45% 1,000 ML IV SCH (10:30)
--- NOTE | 2025-02-12 13:21 | ECG ---
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
[2025-02-12] MEDS: TAMSULOSIN HYDROCHLORIDE 0.4 MG CAP PO SCH (18:10)
--- NOTE | 2025-02-12 20:40 | DVHSR ---
APPROVED REPORT EXAM: Two-dimensional and M-mode echocardiogram with Doppler and color Doppler. Blood Pressure: 127/80 mmHg INDICATION Chest Pain RISK FACTORS Height: 66, Weight: 144 DIMENSIONS LVDd4.4 (3.8-5.7cm)LA (2D)4.1 (1.9-4.0cm)Aortic Root3.6 (2.0-3.7cm) LVDs2.8 (2.5-4.0cm)LA (MM) (1.9-4.0cm)Aortic Cusp Exc1.7 (1.5-2.0cm) EF (%) 66.0 (55-70%)Rt. Atrium3.9 (1.9-4.0cm)Asc. Aorta cm Mitral Valve MitralMitral Stenosis E wave0.45m/sMV Mean GR.mmHg A wave0.82m/sMV Peak GR.40mmHg E/A ratio0.52D MVAcm2 DECEL [id number] 1/2 [id number] IVRTmsDop MVA2.02cm2 Aortic Valve Aortic ValveAortic Stenosis V10.93m/Estiven Mean GR.4mmHg V21.38m/Estiven Peak GR.8mmHg LVOT Diameter2.4 (1.8-2.4cm)Doppler AVA3.05cm2 Pulmonic Valve V20.84m/s Conclusion Sinus rhythm. Left atrial enlargement. Mild aortic sclerosis. The aortic leaflets move well.. The mitral and tricuspid are structurally no rmal. The pulmonic is normal. EF of 55% with normal RV function. Unremarkable Doppler. No pericardial effusion masses or vegetations.
[2025-02-13] VITALS (7 sets, daily range): BP systolic 131–150; BP diastolic 74–87; PULSE 53–83; RESP 14–18; TEMP 97.9–98.6; O2SAT 95–98
[2025-02-13 06:12] LABS: Hematocrit 36.4 % (41.0-53.0); Hemoglobin 12.9 g/dL (13.5-17.5); Mean Corpuscular Hemoglobin 32.9 pg (28.0-32.0); Mean Corpuscular Volume 92.5 fL (80.0-100.0); Nucleated Red Blood Cells % 0.2 %
[2025-02-13 06:30] LABS: Anion Gap 8 (5-15); Carbon Dioxide 27 mmol/L (20-31); Potassium 3.5 mmol/L (3.5-5.1); Sodium 143 mmol/L (136-145)
[2025-02-13 06:32] LABS: Calcium 8.5 mg/dL (8.7-10.4); Chloride 108 mmol/L (98-107)
[2025-02-13 06:36] LABS: BUN/Creatinine Ratio 9.1 (10.0-20.0); Blood Urea Nitrogen 12 mg/dL (9-23); Glucose 92 mg/dL (74-106)
[2025-02-13 08:07] LABS: Prostate Specific Antigen 10.7 ng/mL (0.0-4.0)
--- NOTE | 2025-02-13 08:44 | ECG ---
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
--- NOTE | 2025-02-13 11:16 | DVHINCON2 ---
Date of service: Feb 12, 2025 Referring Physician ER Reason for Consultation Retention. History of Present Illness Patient admitted to the hospital for urinary retention. Patient had Hi catheter placed with drainage of about 1.8 Lts of urine. Patient now complains of dysuria and suprapubic pain. His catheter is now draining light pink urine. He denies urinary symptoms prior to admission. Patient's CT A/P showed retention and bilateral severe hydronephrosis. Past Medical History HTN, Hyperlipidemia. Past Surgical History None. Family History: Diabetes mellitus G8 MOTHER FH: cancer G8 FATHER Family History Not contributory. Social History Denies tobacco, IVD, ETOH. Allergies: Coded Allergies: No Known Drug Allergy (Verified Allergy, Unknown, 12/01/22) Home Meds Active Scripts Spironolactone (Spironolactone) 25 Mg Tab, 1 TAB PO DAILY, #30 TAB 1 Refill Prov:JER HANNA MD 07/29/24 Potassium Chloride (Potassium Chloride ER) 20 Meq Tab, 20 MEQ PO DAILY for 30 Days, #30 TAB 1 Refill Prov:JER HANNA MD 07/29/24 Carvedilol (COREG) 12.5 Mg Tab, 12.5 MG PO Q12HR for 30 Days, #60 TAB Prov:RICHMOND LEIVA RESIDENT 03/07/24 Valsartan (Valsartan) 80 Mg Tab, 320 MG PO DAILY for 30 Days, #120 TAB Prov:RICHMOND LEIVA RESIDENT 03/06/24 Prazosin Hcl (Minipres) 1 Mg Cp, 1 MG PO Q12HR for 30 Days, #60 CAP Prov:RICHMOND LEIVA RESIDENT 03/06/24 Reported Medications Aspirin (Aspirin Low Dose) 81 Mg Tab, 1 TAB PO DAILY 07/25/24 Nifedipine (Nifedipine Er) 90 Mg Tab 07/25/24 Tamsulosin Hcl (Tamsulosin Hcl) 0.4 Mg Cap, CAP PO 07/25/24 Cholecalciferol (D3 5000) 5,000 Unit Cap, 1 CAP PO QWEEKLY for 84 Days, #12 03/05/24 Lovastatin (Lovastatin) 40 Mg Tab, 1 TAB PO HS 03/04/24 Current Medications Current Medications Medications (Trade) Dose Ordered Sig/Kika Route PRN Reason Start Time Stop Time Status Last Admin Sodium Chloride (Saline [place] Ns) 10 ml Q8HR IV 02/11/25 22:00 02/12/25 05:25 Acetaminophen/ Hydrocodone Bitart ([place] 5/325MG Tab) 1 tab Q4HP PRN PO MODERATE PAIN (4-6 PAIN SCALE) 02/11/25 21:15 02/12/25 12:34 Ondansetron HCl (Zofran) 4 mg Q4HP PRN IV NAUSEA / VOMITING 02/11/25 21:15 Ondansetron HCl (Zofran) 4 mg Q4HPRN PRN IV NAUSEA / VOMITING 02/11/25 21:15 02/11/25 22:01 DC Nifedipine (Procardia Xl (Time-Release)) 90 mg DAILY PO 02/12/25 10:00 02/12/25 09:27 Ceftriaxone Sodium 50 ml @ 100 mls/hr DAILY@09 IV 02/12/25 09:00 02/12/25 09:23 Hydralazine HCl (Apresoline Injection) 10 mg Q6HP PRN IV SBP>160 02/11/25 21:15 Pantoprazole Sodium (Protonix) 40 mg DAILY IV 02/12/25 10:00 02/12/25 09:23 Tamsulosin HCl (Flomax) 0.4 mg QPM PO 02/12/25 18:00 Dextrose/Sodium Chloride 1,000 ml @ 75 mls/hr [id number] IV 02/12/25 10:30 02/12/25 10:30 Review of Systems All 12 points reviewed and negative. Vital Signs Vital Signs Date Time Temp Pulse Resp B/P (MAP) Pulse Ox O2 Delivery O2 Flow Rate FiO2 02/12/25 13:00 97.6 82 18 175/93 (120) 96 97.6 02/12/25 00:33 Room Air* 0 21 Physical Exam Gen: NAD, AAOx.3 Neuro: no focal deficit. CV: RRR, S1-S2 present. Resp: CTA, BL. Abd: soft, NT, ND. Labs/Diagnostic Data Labs Test 02/12/25 05:03 02/11/25 19:56 02/11/25 19:33 02/11/25 18:17 Range/Units White Blood Count 8.2 # 4.4-10.8 10^3/uL Red Blood Count 4.17 L 4.5-5.90 10^6/uL Hemoglobin 13.7 13.5-17.5 g/dL Hematocrit 38.5 L 41.0-53.0 % Mean Corpuscular Volume 92.4 80.0-100.0 fL Mean Corpuscular Hemoglobin 32.9 H 28.0-32.0 pg Mean Corpuscular Hemoglobin Concent 35.6 32.0-36.0 g/dL Red Cell Distribution Width 13.2 11.8-14.3 % Platelet Count 200 140-450 10^3/uL Mean Platelet Volume 8.0 6.9-10.8 fL Neutrophils (%) (Auto) 79.3 37.0-80.0 % Lymphocytes (%) (Auto) 14.4 10.0-50.0 % Monocytes (%) (Auto) 5.2 0.0-12.0 % Eosinophils (%) (Auto) 0.7 0.0-7.0 % Basophils (%) (Auto) 0.4 0.0-2.0 % Neutrophils # (Auto) 6.5 1.6-8.6 10 ^3/uL Lymphocytes # (Auto) 1.2 0.4-5.4 10 ^3/uL Monocytes # (Auto) 0.4 0-1.3 10 ^3/uL Eosinophils # (Auto) 0.1 0-0.8 10 ^3/uL Basophils # (Auto) 0 0-0.2 10 ^3/uL Nucleated Red Blood Cells 0.1 % Sodium Level 146 H 136-145 mmol/L Potassium Level 4.1 3.5-5.1 mmol/L Chloride Level 111 H 98-107 mmol/L Carbon Dioxide Level 25 20-31 mmol/L Anion Gap 10 5-15 Blood Urea Nitrogen 10 9-23 mg/dL Creatinine 1.23 0.700-1.30 mg/dL Glomerular Filtration Rate Calc 60 >90 mL/min BUN/Creatinine Ratio 8.1 L 10.0-20.0 Serum Glucose 79 74-106 mg/dL Calcium Level 8.6 L 8.7-10.4 mg/dL Total Bilirubin 0.5 0.2-1.0 mg/dL Aspartate Amino Transferase (AST) 14 13-40 U/L Alanine Aminotransferase (ALT) < 9 7-40 U/L Alkaline Phosphatase 68 46-116 U/L Total Protein 5.8 5.7-8.2 g/dL Albumin 3.6 3.2-4.8 g/dL POC Glucose 125 H 70-106 mg/dl Urine Color Light-yellow Yellow Urine Clarity Turbid H Clear Urine pH 7.5 5.0-9.0 Urine Specific [place] 1.009 1.001-1.035 Urine Protein Negative Negative Urine Ketones Negative Negative Urine Blood Negative Negative /uL Urine Nitrite Negative Negative Urine Bilirubin Negative Negative Urine Urobilinogen Normal Negative mg/dL Urine Leukocyte Esterase Negative Negative /uL Urine RBC 1 0 - 3 /hpf Urine Microscopic WBC 3 0-3 /HPF Urine Squamous Epithelial Cells None seen <5 /hpf Urine Amorphous Crystals Few None Seen /hpf Urine Bacteria None seen None Seen /hpf Urine Hyaline Casts Few 0 - 2 /lpf Urine Glucose Normal Normal mg/dL Urine Opiates Screen Neg NEGATIVE Urine Fentanyl Screen Neg NEGATIVE Urine Barbiturates Screen Neg NEGATIVE Urine Phencyclidine Screen Neg NEGATIVE Urine Amphetamines Screen Neg NEGATIVE Urine Benzodiazepines Screen Neg NEGATIVE Urine Cocaine Screen Neg NEGATIVE Urine Cannabinoids Screen Neg NEGATIVE Magnesium Level 1.9 1.6-2.6 mg/dL Direct Bilirubin 0.2 <0.3 mg/dL Troponin I High Sensitivity 12 </=54 ng/L Thyroid Stimulating Hormone (TSH) 3.19 0.55-4.78 uIU/mL Test 02/11/25 15:22 Range/Units B-Type Natriuretic Peptide 37.93 0-100 pg/mL Assessment Urinary retention, Bilateral hydronephrosis. - Continue Hi catheter. - TOV as an outpatient. - Start patient on Flomax. - Renal/bladder US in 72 hours. - Irrigate catheter for obstruction. Hematuria is most likely due to severe distention of bladder with sudden decompression. - Rest of care as per primary team. Plan discussed with: Patient JONATHON MORENO MD Feb 12, 2025 14:47
--- NOTE | 2025-02-13 11:21 | DVHPNRES ---
Progress Note Date Seen: Feb 12, 2025 Resident Creating Document: FERMIN SAWYER RESIDENT Medical Necessity Reason Pt with a Central, PICC or Fol: Yes Subjective Review of Systems David Duarte is a 79-year-old male with past medical history of BPH s/p TURP, hypertension, hyperlipidemia and chronic otitis media, presented to [facility] ED with complaint of generalized weakness, dizziness and abdominal pain. He has had progressive worsening lower abdominal pain, which have been ongoing for several weeks but pain worsened today, rated at 9/10 in intensity and currently 8/10 in the ED right now. Pain is described as burning, nonradiating pain, fixed to the LLQ, RLQ, nothing makes the pain better and is worsened with ambulation. Symptoms were associated with shortness of breath and one episode of nausea/vomiting en route to the ED. Abdominal CT showed severely distended urinary bladder with moderate to severe right and moderate left-sided hydronephrosis and hydroureter. The patient was placed Hi catheter, started on IV antibiotics and IV fluids. Past Medical History:BPH, hypertension, hyperlipidemia, chronic otitis media Past Surgical History:TURP 8 years ago, bladder rupture repair at age 6, right ear tube placement 15 years ago Family History: None Past Social History Smoking: > 50 years 1 pack a day. Alcohol: >50 years. Drug: Denies. Patient seen and examined at bedside. Patient is alert and oriented to time, place person and responding to all questions. Eyes: No Pain, No Vision change, No Conjunctivae inflammation, No Eyelid inflammation, No Redness ENT: No Ear pain, No Ear discharge, No Nose pain, No Nose discharge, No Nose congestion, No Mouth pain, No Mouth swelling, No Throat pain, No Throat swelling Cardiovascular: No Chest Pain, No Palpitations, No Orthopnea, No Paroxysmal No Dyspnea, No Edema, No Lt Headedness Respiratory: No Cough, No Dry, No Shortness of breath, No SOB with exertion, No Wheezing, No Hemoptysis, No Pleuritic Pain, No Sputum Gastrointestinal: No Nausea, No Vomiting, lower Abdominal Pain, No Diarrhea, No Constipation, No Melena, No Hematochezia Genitourinary: No Dysuria, No Frequency, No Incontinence, No Hematuria, No Retention Objective vital signs Vital Sign Date Time Temp Pulse Resp B/P (MAP) Pulse Ox O2 Delivery O2 Flow Rate FiO2 10/30/25 16:33 98.0 74 18 164/98 (120) 96 98.0 73 154/84 (107) 02/12/25 00:33 Room Air* 0 21 Total Intake and Output 02/11/25 02/11/25 02/12/25 15:00 23:00 07:00 Intake Total 1000 ml 150 ml Output Total 1850 ml 1450 ml Balance -850 ml -1300 ml medications Current Medications Medications Dose Ordered Sig/Kika Route Start Time Stop Time Status Last Admin Dose Admin Sodium Chloride 10 ml Q8HR IV 02/11/25 22:00 02/12/25 14:00 10 ML Acetaminophen/ Hydrocodone Bitart 1 tab Q4HP PRN PO 02/11/25 21:15 02/12/25 12:34 1 TAB Ondansetron HCl 4 mg Q4HP PRN IV 02/11/25 21:15 Nifedipine 90 mg DAILY PO 02/12/25 10:00 02/12/25 09:27 90 MG Ceftriaxone Sodium 50 ml @ 100 mls/hr DAILY@09 IV 02/12/25 09:00 02/12/25 09:23 100 MLS/HR Hydralazine HCl 10 mg Q6HP PRN IV 02/11/25 21:15 Pantoprazole Sodium 40 mg DAILY IV 02/12/25 10:00 02/12/25 09:23 40 MG Tamsulosin HCl 0.4 mg QPM PO 02/12/25 18:00 Dextrose/Sodium Chloride 1,000 ml @ 75 mls/hr [id number] IV 02/12/25 10:30 02/12/25 10:30 75 MLS/HR Examination General Appearance: Mild distress. Well developed. Well nourished. NAD Head Exam: Normal inspection Neck Exam: Normal inspection. Non-tender. Normal alignment Pulmonary/Respiratory: Chest non-tender. Clear bilateral breath sounds, no crackles, no wheezing. Cardiovascular/Chest: Regular rate and rhythm. No murmurs. No JVD. Peripheral Pulses: 2+ Radial (R). 2+ Radial (L). 2+ Pedal (R). 2+ Pedal (L) Abdominal Exam: LLQ, LLQ tenderness. Distended abdomen Positive bowel sounds. Soft. Normal abdomen, no visible veins. No hepatospenomegaly. No masses Ankle Exam: Negative ankle edema Lower extremities: Negative lower extremity edema Neuro/Mental Status: A&O x4. Coherent. Thoughts/Psych: Normal thought pattern. Appropriate mood and affect. Good judgement and insight Skin Exam: Normal inspection. Normal color. Warm. Dry laboratory and microbiology Laboratory Tests 02/12/25 05:03 Test 02/12/25 05:03 Range/Units Serum Glucose 79 74-106 mg/dL Labs and/or images reviewed: Labs reviewed by me, Image(s) reviewed by me Problem List/Assessment/Plan Problem List/Assessment/Plan Acute urinary retention Acute intractable abdominal pain likely due to above Bilateral hydronephrosis Hydroureter BPH status post TURP 8 years ago -Renal US: Right worse than left hydronephrosis. Layering stones within dilated right calices. Distended urinary bladder. -CT Abdomen/pelvis: Severely distended urinary bladder with moderate to severe right and moderate left-sided hydronephrosis and hydroureter. -Urology consult-Urinary retention, Bilateral hydronephrosis. - Continue Hi catheter. - TOV as an outpatient. - Start patient on Flomax. - Renal/bladder US in 72 hours. - Irrigate catheter for obstruction. Hematuria is most likely due to severe distention of bladder with sudden decompression -Ceftriaxone IV daily -pain management with [place] 1 TAB PO q4h PRN -Zofran 4 MG IV q4h Acute otitis media / mastoiditis on chronic otitis media Acute sinusitis Head CT: Fluid filling the right mastoid and right middle ear. Mild mucosal thickening in the left ethmoid air cells. Hypertensive urgency -Hydralazine infection 10 MG IV q6h -Nifedipine 90 MG PO daily -Ruled out TIA Carotid duplex: No hemodynamically significant stenosis noted in the left/right carotid system. Elevated bilateral external carotid artery velocities. Head CT: No acute intracranial abnormality. Mild generalized volume loss with chronic small vessel ischemic change. Diet: Cardiac Goals of care: Full code, discussed for >30 minutes on 02/11/25 Plan discussed with patient Case discussed with Dr. Jewell, RN Plan discussed with: Patient My Orders My Orders Orders - FERMIN SAWYER RESIDENT Procedure Category Date Status Time D5w/Sod Chl 0.45% PHA 02/12/25 In Process (D5w 1/2ns) 10:30 Date of Service: Feb 12, 2025 Billing Provider: MYRON JEWELL MD Common Visit Codes: [id number] INP/OBS CARE(HIGH) FERMIN SAWYERUR RESIDENT Feb 12, 2025 17:44 MYRON JEWELL MD Feb 12, 2025 22:57
--- NOTE | 2025-02-13 12:27 | DVH ---
CLINICAL HISTORY: acute urinary retention,hematuria TECHNIQUE: Complete ultrasound exam of the kidneys and bladder was performed. COMPARISON: US KIDNEY on DOS: 02/11/25, US KIDNEY on DOS: 03/05/24 FINDINGS: The right kidney has normal echogenicity and measures 10.7 cm. There may be residual hydronephrosis a t the upper pole of the right kidney, not well seen. The left kidney has normal echogenicity and measures 10.8 cm. There is a 1.4 cm cyst with no evidenc e for stone. There is no hydronephrosis. The bladder is decompressed by a Hi catheter. IMPRESSION: Resolved left hydronephrosis. Possible residual hydronephrosis at the upper pole of the right kidney, not well seen.
--- NOTE | 2025-02-13 13:40 | DVHPNRES ---
Progress Note Date Seen: Feb 13, 2025 Resident Creating Document: FERMIN SAWYER RESIDENT Medical Necessity Reason Pt with a Central, PICC or Fol: Yes Objective vital signs Vital Sign Date Time Temp Pulse Resp B/P (MAP) Pulse Ox O2 Delivery O2 Flow Rate FiO2 02/13/25 09:01 150/87 02/13/25 09:00 98.6 83 17 96 98.6 02/13/25 08:00 Room Air* 0 21 Total Intake and Output 02/12/25 02/12/25 02/13/25 15:00 23:00 07:00 Intake Total 580 ml 240 ml Output Total 975 ml Balance -395 ml 240 ml medications Current Medications Medications Dose Ordered Sig/Kika Route Start Time Stop Time Status Last Admin Dose Admin Sodium Chloride 10 ml Q8HR IV 02/11/25 22:00 02/13/25 06:27 10 ML Acetaminophen/ Hydrocodone Bitart 1 tab Q4HP PRN PO 02/11/25 21:15 02/13/25 09:01 1 TAB Ondansetron HCl 4 mg Q4HP PRN IV 02/11/25 21:15 Nifedipine 90 mg DAILY PO 02/12/25 10:00 02/13/25 09:01 90 MG Ceftriaxone Sodium 50 ml @ 100 mls/hr DAILY@09 IV 02/12/25 09:00 02/13/25 09:00 100 MLS/HR Hydralazine HCl 10 mg Q6HP PRN IV 02/11/25 21:15 Pantoprazole Sodium 40 mg DAILY IV 02/12/25 10:00 02/13/25 09:00 40 MG Tamsulosin HCl 0.4 mg QPM PO 02/12/25 18:00 02/12/25 18:10 0.4 MG Dextrose/Sodium Chloride 1,000 ml @ 75 mls/hr [id number] IV 02/12/25 10:30 02/13/25 06:42 75 MLS/HR laboratory and microbiology Laboratory Tests 02/13/25 05:01 Test 02/13/25 05:01 Range/Units Serum Glucose 92 74-106 mg/dL Labs and/or images reviewed: Labs reviewed by me, Image(s) reviewed by me Problem List/Assessment/Plan Problem List/Assessment/Plan Acute urinary retention Acute intractable abdominal pain likely due to above Bilateral hydronephrosis ,right>left Hydroureter BPH status post TURP 8 years ago -Renal US: Right worse than left hydronephrosis. Layering stones within dilated right calices. Distended urinary bladder. -CT Abdomen/pelvis: Severely distended urinary bladder with moderate to severe right and moderate left-sided hydronephrosis and hydroureter. -Urology consult-Urinary retention, Bilateral hydronephrosis. - Continue Hi catheter. - TOV as an outpatient. - Start patient on Flomax. - Renal/bladder US in 72 hours. - Irrigate catheter for obstruction. Hematuria is most likely due to severe distention of bladder with sudden decompression -Ceftriaxone IV daily -pain management with [place] 1 TAB PO q4h PRN -Zofran 4 MG IV q4h Acute otitis media / mastoiditis on chronic otitis media Acute sinusitis Head CT: Fluid filling the right mastoid and right middle ear. Mild mucosal thickening in the left ethmoid air cells. Hypertensive urgency -Hydralazine infection 10 MG IV q6h -Nifedipine 90 MG PO daily -Ruled out TIA Carotid duplex: No hemodynamically significant stenosis noted in the left/right carotid system. Elevated bilateral external carotid artery velocities. Head CT: No acute intracranial abnormality. Mild generalized volume loss with chronic small vessel ischemic change. Diet: Cardiac Goals of care: Full code, discussed for >30 minutes on 02/11/25 Plan discussed with patient Case discussed with Dr. Mendiola, RN Plan discussed with: Patient My Orders My Orders Orders - FERMIN SAWYER Procedure Category Date Status Time Kidney US 02/13/25 Resulted 11:00 FERMIN SAWYER RESIDENT Feb 13, 2025 13:40
--- NOTE | 2025-02-13 14:26 | DVHPNRES ---
Progress Note Date Seen: Feb 13, 2025 Resident Creating Document: FERMIN SAWYER RESIDENT Medical Necessity Reason Pt with a Central, PICC or Fol: Yes Subjective Review of Systems David Duarte is a 79-year-old male with past medical history of BPH s/p TURP, hypertension, hyperlipidemia and chronic otitis media, presented to [facility] ED with complaint of generalized weakness, dizziness and abdominal pain. He has had progressive worsening lower abdominal pain, which have been ongoing for several weeks but pain worsened today, rated at 9/10 in intensity and currently 8/10 in the ED right now. Pain is described as burning, nonradiating pain, fixed to the LLQ, RLQ, nothing makes the pain better and is worsened with ambulation. Symptoms were associated with shortness of breath and one episode of nausea/vomiting en route to the ED. Abdominal CT showed severely distended urinary bladder with moderate to severe right and moderate left-sided hydronephrosis and hydroureter. Hi catheter was placed and patient was started on IV antibiotics and IV fluids. Past Medical History:BPH, hypertension, hyperlipidemia, chronic otitis media Past Surgical History:TURP 8 years ago, bladder rupture repair at age 6, right ear tube placement 15 years ago Family History: None Past Social History Smoking: > 50 years 1 pack a day. Alcohol: >50 years. Drug: Denies. Patient seen and examined at bedside. Patient is alert and oriented to time, place person and responding to all questions. Eyes: No Pain, No Vision change, No Conjunctivae inflammation, No Eyelid inflammation, No Redness ENT: No Ear pain, No Ear discharge, No Nose pain, No Nose discharge, No Nose congestion, No Mouth pain, No Mouth swelling, No Throat pain, No Throat swelling Cardiovascular: No Chest Pain, No Palpitations, No Orthopnea, No Paroxysmal No Dyspnea, No Edema, No Lt Headedness Respiratory: No Cough, No Dry, No Shortness of breath, No SOB with exertion, No Wheezing, No Hemoptysis, No Pleuritic Pain, No Sputum Gastrointestinal: No Nausea, No Vomiting, lower Abdominal Pain, No Diarrhea, No Constipation, No Melena, No Hematochezia Genitourinary: No Dysuria, No Frequency, No Incontinence, No Hematuria, No Retention 02/13/25- The patient is seen at bedside today. The patient complained of mild burning sensation at the site of the catheter which was draining bloody urine. Catheter irrigation was done and dariange of blood tinged urine was seen. Urology recommended to continue Hi catheter, TOV as an outpatient and started patient on Flomax. Repeat renal ultrasound showed Resolved left hydronephrosis and Possible residual hydronephrosis at the upper pole of the right kidney, not well seen. Objective vital signs Vital Sign Date Time Temp Pulse Resp B/P (MAP) Pulse Ox O2 Delivery O2 Flow Rate FiO2 02/13/25 09:01 150/87 02/13/25 09:00 98.6 83 17 96 98.6 02/13/25 08:00 Room Air* 0 21 Total Intake and Output 02/12/25 02/12/25 02/13/25 15:00 23:00 07:00 Intake Total 580 ml 240 ml Output Total 975 ml Balance -395 ml 240 ml medications Current Medications Medications Dose Ordered Sig/Kika Route Start Time Stop Time Status Last Admin Dose Admin Sodium Chloride 10 ml Q8HR IV 02/11/25 22:00 02/13/25 06:27 10 ML Acetaminophen/ Hydrocodone Bitart 1 tab Q4HP PRN PO 02/11/25 21:15 02/13/25 09:01 1 TAB Ondansetron HCl 4 mg Q4HP PRN IV 02/11/25 21:15 Nifedipine 90 mg DAILY PO 02/12/25 10:00 02/13/25 09:01 90 MG Ceftriaxone Sodium 50 ml @ 100 mls/hr DAILY@09 IV 02/12/25 09:00 02/13/25 09:00 100 MLS/HR Hydralazine HCl 10 mg Q6HP PRN IV 02/11/25 21:15 Pantoprazole Sodium 40 mg DAILY IV 02/12/25 10:00 02/13/25 09:00 40 MG Tamsulosin HCl 0.4 mg QPM PO 02/12/25 18:00 02/12/25 18:10 0.4 MG Dextrose/Sodium Chloride 1,000 ml @ 75 mls/hr [id number] IV 02/12/25 10:30 02/13/25 06:42 75 MLS/HR Examination General Appearance: Mild distress. Well developed. Well nourished. NAD. Urinary catheter draining bloody urine. Head Exam: Normal inspection Neck Exam: Normal inspection. Non-tender. Normal alignment Pulmonary/Respiratory: Chest non-tender. Clear bilateral breath sounds, no crackles, no wheezing. Cardiovascular/Chest: Regular rate and rhythm. No murmurs. No JVD. Peripheral Pulses: 2+ Radial (R). 2+ Radial (L). 2+ Pedal (R). 2+ Pedal (L) Abdominal Exam: LLQ, LLQ tenderness. Distended abdomen Positive bowel sounds. Soft. Normal abdomen, no visible veins. No hepatospenomegaly. No masses Ankle Exam: Negative ankle edema Lower extremities: Negative lower extremity edema Neuro/Mental Status: A&O x4. Coherent. Thoughts/Psych: Normal thought pattern. Appropriate mood and affect. Good judgement and insight Skin Exam: Normal inspection. Normal color. Warm. Dry laboratory and microbiology Laboratory Tests 02/13/25 05:01 Test 02/13/25 05:01 Range/Units Serum Glucose 92 74-106 mg/dL Labs and/or images reviewed: Labs reviewed by me, Image(s) reviewed by me Problem List/Assessment/Plan Problem List/Assessment/Plan Acute urinary retention Acute intractable abdominal pain likely due to above Bilateral hydronephrosis Hydroureter BPH status post TURP 8 years ago -Renal US: Right worse than left hydronephrosis. Layering stones within dilated right calices. Distended urinary bladder. -CT Abdomen/pelvis: Severely distended urinary bladder with moderate to severe right and moderate left-sided hydronephrosis and hydroureter. -Urology consult - Continue Hi catheter. - TOV as an outpatient. - Start patient on Flomax. - Renal/bladder US in 72 hours. - Irrigate catheter for obstruction. Hematuria is most likely due to severe distention of bladder with sudden decompression -Ceftriaxone IV daily -pain management with [place] 1 TAB PO q4h PRN -Zofran 4 MG IV q4h -catheter was irrigated and sanguineous urine was drained -repeat renal ultrasound showed Resolved left hydronephrosis and Possible residual hydronephrosis at the upper pole of the right kidney, not well seen. Acute otitis media / mastoiditis on chronic otitis media Acute sinusitis Head CT: Fluid filling the right mastoid and right middle ear. Mild mucosal thickening in the left ethmoid air cells. Hypertensive urgency -Hydralazine infection 10 MG IV q6h -Nifedipine 90 MG PO daily -Ruled out TIA Carotid duplex: No hemodynamically significant stenosis noted in the left/right carotid system. Elevated bilateral external carotid artery velocities. Head CT: No acute intracranial abnormality. Mild generalized volume loss with chronic small vessel ischemic change. Diet: Cardiac Goals of care: Full code, discussed for >30 minutes Plan discussed with patient Case discussed with Dr. Jewell, RN Plan discussed with: Patient My Orders My Orders Orders - FERMIN SAWYER Procedure Category Date Status Time Kidney US 02/13/25 Resulted 11:00 Date of Service: Feb 13, 2025 Billing Provider: MYRON JEWELL MD Common Visit Codes: [id number] INP/OBS CARE(HIGH) FERMIN SAWYER RESIDENT Feb 13, 2025 14:26 MYRON JEWELL MD Feb 13, 2025 23:39
[2025-02-13 19:07] LABS: Potassium 3.5 mmol/L (3.5-5.1); Sodium 144 mmol/L (136-145)
[2025-02-13 19:08] LABS: Anion Gap 9 (5-15); Carbon Dioxide 26 mmol/L (20-31)
[2025-02-13 19:13] LABS: BUN/Creatinine Ratio 7.4 (10.0-20.0); Glucose 96 mg/dL (74-106)
[2025-02-13 19:15] LABS: Blood Urea Nitrogen 9 mg/dL (9-23); Calcium 8.3 mg/dL (8.7-10.4); Chloride 109 mmol/L (98-107)
[2025-02-13 19:24] LABS: Hematocrit 37.8 % (41.0-53.0); Hemoglobin 13.3 g/dL (13.5-17.5); Mean Corpuscular Hemoglobin 32.6 pg (28.0-32.0); Mean Corpuscular Volume 92.3 fL (80.0-100.0); Nucleated Red Blood Cells % 0.0 %
[2025-02-14 01:00] VITALS: BP_SYST 120; BP_SYST 134; BP_DIAS 101; BP_DIAS 76; PULSE 61; RESP 17; TEMP 97.7; O2SAT 96
[2025-02-14 05:00] VITALS: BP 148/94; PULSE 17; PULSE 71; RESP 97; TEMP 97.9; O2SAT 97
[2025-02-14 09:00] VITALS: BP 145/86; PULSE 71; RESP 15; TEMP 98.6; O2SAT 95
[2025-02-14] MEDS ORDERED: TAMS0.4C39 PO (11:49)
[2025-02-14] MEDS ORDERED: CIPR500T4 PO (11:49)
--- NOTE | 2025-02-14 12:01 | DVHDSRES ---
Discharge Summary Date of Admission Resident Creating Document: ADAN BROWN RESIDENT Feb 11, 2025 at 21:08 Date of Discharge: Feb 14, 2025 Admitting Diagnosis Acute urinary retention Wounds: No wounds present at this time. Labs/Diagnostic Data: Laboratory Results Test 02/13/25 18:20 02/12/25 05:03 02/11/25 19:56 02/11/25 19:33 White Blood Count 5.1 10^3/uL (4.4-10.8) Red Blood Count 4.09 10^6/uL (4.5-5.90) Hemoglobin 13.3 g/dL (13.5-17.5) Hematocrit 37.8 % (41.0-53.0) Mean Corpuscular Volume 92.3 fL (80.0-100.0) Mean Corpuscular Hemoglobin 32.6 pg (28.0-32.0) Mean Corpuscular Hemoglobin Concent 35.3 g/dL (32.0-36.0) Red Cell Distribution Width 13.1 % (11.8-14.3) Platelet Count 181 10^3/uL (140-450) Mean Platelet Volume 7.9 fL (6.9-10.8) Neutrophils (%) (Auto) 65.5 % (37.0-80.0) Lymphocytes (%) (Auto) 22.2 % (10.0-50.0) Monocytes (%) (Auto) 6.2 % (0.0-12.0) Eosinophils (%) (Auto) 5.5 % (0.0-7.0) Basophils (%) (Auto) 0.6 % (0.0-2.0) Neutrophils # (Auto) 3.3 10 ^3/uL (1.6-8.6) Lymphocytes # (Auto) 1.1 10 ^3/uL (0.4-5.4) Monocytes # (Auto) 0.3 10 ^3/uL (0-1.3) Eosinophils # (Auto) 0.3 10 ^3/uL (0-0.8) Basophils # (Auto) 0 10 ^3/uL (0-0.2) Nucleated Red Blood Cells 0.0 % Sodium Level 144 mmol/L (136-145) Potassium Level 3.5 mmol/L (3.5-5.1) Chloride Level 109 mmol/L (98-107) Carbon Dioxide Level 26 mmol/L (20-31) Anion Gap 9 (5-15) Blood Urea Nitrogen 9 mg/dL (9-23) Creatinine 1.21 mg/dL (0.700-1.30) Glomerular Filtration Rate Calc 61 mL/min (>90) BUN/Creatinine Ratio 7.4 (10.0-20.0) Serum Glucose 96 mg/dL (74-106) Calcium Level 8.3 mg/dL (8.7-10.4) Total Bilirubin 0.5 mg/dL (0.2-1.0) Aspartate Amino Transferase (AST) 14 U/L (13-40) Alanine Aminotransferase (ALT) < 9 U/L (7-40) Alkaline Phosphatase 68 U/L (46-116) Total Protein 5.8 g/dL (5.7-8.2) Albumin 3.6 g/dL (3.2-4.8) Free Prostate Specific Antigen 2.72 ng/mL (N/A) Percent Free Prostate Specific Ag 25.4 % (.) Prostate Specific Antigen Total 10.7 ng/mL (0.0-4.0) POC Glucose 125 mg/dl (70-106) Urine Color Light-yellow (Yellow) Urine Clarity Turbid (Clear) Urine pH 7.5 (5.0-9.0) Urine Specific [place] 1.009 (1.001-1.035) Urine Protein Negative (Negative) Urine Ketones Negative (Negative) Urine Blood Negative /uL (Negative) Urine Nitrite Negative (Negative) Urine Bilirubin Negative (Negative) Urine Urobilinogen Normal mg/dL (Negative) Urine Leukocyte Esterase Negative /uL (Negative) Urine RBC 1 /hpf (0 - 3) Urine Microscopic WBC 3 /HPF (0-3) Urine Squamous Epithelial Cells None seen /hpf (<5) Urine Amorphous Crystals Few /hpf (None Seen) Urine Bacteria None seen /hpf (None Seen) Urine Hyaline Casts Few /lpf (0 - 2) Urine Glucose Normal mg/dL (Normal) Urine Opiates Screen Neg (NEGATIVE) Urine Fentanyl Screen Neg (NEGATIVE) Urine Barbiturates Screen Neg (NEGATIVE) Urine Phencyclidine Screen Neg (NEGATIVE) Urine Amphetamines Screen Neg (NEGATIVE) Urine Benzodiazepines Screen Neg (NEGATIVE) Urine Cocaine Screen Neg (NEGATIVE) Urine Cannabinoids Screen Neg (NEGATIVE) Test 02/11/25 18:17 02/11/25 15:22 Magnesium Level 1.9 mg/dL (1.6-2.6) Direct Bilirubin 0.2 mg/dL (<0.3) Troponin I High Sensitivity 12 ng/L (</=54) Thyroid Stimulating Hormone (TSH) 3.19 uIU/mL (0.55-4.78) B-Type Natriuretic Peptide 37.93 pg/mL (0-100) Other Laboratory Tests 02/13/25 18:20 Brief Hx & Hospital Course: This is a 79-year-old male with past medical history of BPH s/p TURP, hypertension, hyperlipidemia and chronic otitis media, presented to [facility] ED with complaint of generalized weakness, dizziness and abdominal pain. He has had progressive worsening lower abdominal pain, which was ongoing for several weeks but pain worsened the day of admission, rated as 9/10 in intensity. The patient reported pain as burning, nonradiating pain, fixed to the LLQ, RLQ, nothing makes the pain better and is worsened with ambulation. Symptoms were associated with shortness of breath and one episode of nausea/vomiting en route to the ED. Initial Abdominal CT showed severely distended urinary bladder with moderate to severe right and moderate left-sided hydronephrosis and hydroureter. Skinner catheter was placed and patient was started on IV antibioticsas well as with IV fluids. PSA was ordered and came back elevated at 10.7. Skinner was draining slightly red urine, bag was replaced and flush to the bladder was performed. Patient was seen by Urology during hospitalization stay and recommended to do a trial of void as an outpatient and to discharge the patient with the skinner catheter. Today patient has no major concerns, we explain that needs to follow up with urology in 1 week for skinner removal and reevaluation of prostate since PSA was significantly elevated and had a previous TURP 8 years back. We will DC the patient on ciprofloxacin 500mg BID for 7 days and tamsulosin 0.4mg daily for 15 days. ROS Constitutional: Denies weight loss, fever and chills. HEENT: Denies changes in vision and hearing. Respiratory: Denies shortness of breath and cough Cardiovascular: Denies chest discomfort or palpitations GI: Denies abdominal pain, nausea, vomiting and diarrhea. : Denies dysuria and urinary frequency. Musculoskeletal: Denies myalgias and joint pain Skin: Denies rash and pruritus. Neurological: Denies dizziness, headache, vision or hearing problems Physical Examination General: Patient alert and oriented in person, place and time. Patient following commands. HEENT: Normocephalic, atraumatic, moist mucous membranes Respiratory/pulmonary: Clear lungs bilaterally, no associated crackles or wheezes. Cardiovascular: Normal heart sounds S1 and S2 with no associated murmurs Abdomen: Abdomen nondistended, there is no pain to palpation in any of the abdominal quadrants, no palpable masses. Extremities: There is no peripheral edema present at the lower extremities. Skin: No rashes or pruritus, there is no sacral edema present at this time. Neurological: Intact cranial nerves with no focal neurologic deficits Consults/Reason for consult Urology due to bilateral hydronephrosis Operations or Procedures Exam: CT CT AB PEL WO CON-NO ORAL OR IV History: colitis, pain Comparison Study: CT CT AB PEL WO CON-NO ORAL OR IV on DOS: 03/06/24, US KIDNEY on DOS: 03/05/24 Technique: Multidetector spiral CT of the abdomen was performed from lung bases to pubic symphysis. Imaging was performed without IV contrast. Axial, coronal and sagittal multiplanar reformats were obtained from the axial data set by the technologist. Radiation Dose : 1. Abdomen/Pelvis: CTDIvol 9.75 mGy, DLP 472.71 mGy*cm. Findings: Evaluation of solid organs is limited due to lack of intravenous contrast use. Lung Bases: No acute or significant lung base finding. Normal heart size. No pleural or pericardial effusion. Liver: The liver is normal in size. No focal lesions. Gallbladder and Biliary Tree: Unremarkable Spleen: Unremarkable Pancreas: The pancreas is grossly normal in appearance. Adrenal Glands: Unremarkable Kidneys: Moderate to severe right and moderate left-sided hydronephrosis and hydroureter. Urinary bladder is distended. Duplex collecting system noted on the right. Bladder: Grossly unremarkable for degree of distention. Bowel: The stomach is grossly normal in appearance. Small bowel and colon are normal in caliber and distribution. The appendix is not visualized; however, no secondary findings of acute appendicitis identified. Colonic diverticulosis. Ascites: Absent Lymphadenopathy: No mesenteric, retroperitoneal or periportal lymphadenopathy. Abdominal Wall and Mesentery: Unremarkable. Vasculature: The visualized abdominal aorta is normal in size and caliber. Evaluation of abdominal and pelvic vessels is limited due to lack of intravenous contrast. Pelvic Organs: Unremarkable Musculoskeletal: No aggressive focal bony lesions, acute fractures or dislocation. IMPRESSION: Severely distended urinary bladder with moderate to severe right and moderate left-sided hydronephrosis and hydroureter. CHEST RADIOGRAPH Indication: sob Technique: Single frontal view of the chest was obtained COMPARISON: XY CHEST PORTABLE on DOS: 07/25/24, XY CHEST PORTABLE on DOS: 03/18/24, XY CHEST TWO VIEWS ROUTINE on DOS: 03/04/24, XY CHEST TWO VIEWS ROUTINE on DOS: 10/12/23, XY CHEST PORTABLE on DOS: 11/02/22 FINDINGS: Lines and Tubes: None Lungs: Clear Pleura: No effusion. No pneumothorax. Cardiomediastinal contours: Unremarkable Bones: Unremarkable IMPRESSION: No acute disease. COMPUTERIZED TOMOGRAPHY OF THE HEAD WITHOUT CONTRAST REASON FOR STUDY: dizzy COMPARISON: CT HEAD WITHOUT CONTRAST on DOS: 07/25/24, CT HEAD WITHOUT CONTRAST on DOS: 03/18/24, CT HEAD WITHOUT CONTRAST on DOS: 03/04/24, CT HEAD WITHOUT CONTRAST on DOS: 11/02/22, CT MAXILLOFACIAL WITHOUT on DOS: 11/02/22 TECHNIQUE: Helical tomographic scans were obtained through the brain. 2-D coronal and sagittal reformatted images are provided. Radiation optimization: All CT scans at this facility use at least one of these dose optimization techniques: Automated exposure control mA and/or kV adjustment per patient size (includes targeted exams where dose is matched to clinical indication) or iterative reconstruction. RADIATION DOSE: CTDI: 65.31 mGy DLP: 1090.95 mGy-cm FINDINGS: No suspicious intracranial hyperdensity to suggest acute blood. 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 There is no mass effect nor midline shift. There is mild generalized volume loss with compensatory enlargement of the CSF spaces. There is no hydrocephalus. The suprasellar cistern is intact. There are scattered periventricular and deep white matter hypodensities that are most consistent with chronic microangiopathic changes. The calvarium is intact. There is fluid filling the right mastoid and right middle ear. The left mastoid and left middle ear are clear of fluid. There is mild mucosal thickening in the left ethmoid air cells. IMPRESSION: No acute intracranial abnormality. Mild generalized volume loss with chronic small vessel ischemic change. Fluid filling the right mastoid and right middle ear. Correlate clinically for acute otitis media / mastoiditis. Mild mucosal thickening in the left ethmoid air cells. Correlate clinically for acute sinusitis. Carotid Duplex Clinical History: dizziness Comparison: None Technique: Duplex Doppler evaluation of the extracranial carotid and vertebral arteries including color Doppler and spectral/pulsed waveform analysis was performed. Findings: RIGHT SIDE: The peak systolic velocities are 57 cm/s in the CCA, 118 cm/s in the ICA. The ICA/CCA ratio is 2.1. The external carotid artery is patent with peak systolic velocity of 153 cm/s proximally. There is appropriate antegrade flow in the right vertebral artery. Calcified atheromatous plaque within the carotid bulb. LEFT SIDE: The peak systolic velocities are 54 cm/s in the CCA, 88 cm/s in the ICA. The ICA/CCA ratio is 1.6. The external carotid artery is patent with peak systolic velocity of 155 cm/s proximally. There is appropriate antegrade flow in the left vertebral artery. Calcified atheromatous plaque within the carotid bulb. IMPRESSION: 1. No hemodynamically significant stenosis noted in the right carotid system. 2. No hemodynamically significant stenosis noted in the left carotid system. 3. Elevated bilateral external carotid artery velocities. 4. Calcified atheromatous plaque within the bilateral carotid bulbs. INDICATION: l/r hydronephrosis TECHNIQUE: Multiple real-time sonographic images of the kidneys and bladder were obtained. COMPARISON: Same day CT abdomen/pelvis, renal ultrasound 02/2024 FINDINGS: RIGHT kidney measures 15.8 cm in length. Severe hydronephrosis. Layering echogenic material within dilated calices. LEFT kidney measures 10.4 cm in length. [id number] hydronephrosis. No visualized stone. The bladder remains prominently distended without evidence of wall thickening or intraluminal filling defect. Both ureteral jets are visualized. IMPRESSION: 1. Right worse than left hydronephrosis. Layering stones within dilated right calices. 2. Distended urinary bladder. CLINICAL HISTORY: acute urinary retention,hematuria TECHNIQUE: Complete ultrasound exam of the kidneys and bladder was performed. COMPARISON: US KIDNEY on DOS: 02/11/25, US KIDNEY on DOS: 03/05/24 FINDINGS: The right kidney has normal echogenicity and measures 10.7 cm. There may be residual hydronephrosis at the upper pole of the right kidney, not well seen. The left kidney has normal echogenicity and measures 10.8 cm. There is a 1.4 cm cyst with no evidence for stone. There is no hydronephrosis. The bladder is decompressed by a Skinner catheter. IMPRESSION: Resolved left hydronephrosis. Possible residual hydronephrosis at the upper pole of the right kidney, not well seen. Condition at Discharge: Fair Final Diagnosis/Problems List Acute urinary retention Acute intractable abdominal pain likely due to above Bilateral hydronephrosis worse on right kidney Bilateral Hydroureter BPH status post TURP 8 years ago Hypertensive urgency Discharge Disposition: Home Discharge Instruct/Medications Diet: Renal Activity: No Restrictions, As Tolerated Follow Up/Referral: F/U with urology in 1 week for poss cystoscopy/prostate biopsy F/U with his PCP in 1 week Medications: Tamsulosin 0.4mg daily for 15 days ciprofloxacin 500mg BID for 7 days Cont. home meds Scheduled Aspirin (Aspirin Low Dose), 1 TAB PO DAILY, (Reported) Carvedilol (Coreg), 12.5 MG PO Q12HR Cholecalciferol (D3 5000), 1 CAP PO QWEEKLY, (Reported) Ciprofloxacin Hcl (Ciprofloxacin Hcl), 1 TAB PO BID Lovastatin (Lovastatin), 1 TAB PO HS, (Reported) Potassium Chloride (Potassium Chloride ER), 20 MEQ PO DAILY Prazosin Hcl (Minipres), 1 MG PO Q12HR Spironolactone (Spironolactone), 1 TAB PO DAILY Tamsulosin Hcl (Tamsulosin Hcl), 1 CAP PO DAILY Valsartan (Valsartan), 320 MG PO DAILY Miscellaneous Medications Nifedipine (Nifedipine Er), (Reported) Tamsulosin Hcl (Tamsulosin Hcl), CAP PO, (Reported) Discharge Statement: "Patient was advised to return to the ER or call 911 if any headaches, dizziness, shortness of breath, chest pain, abdominal pain, bleeding, fevers, or worsening of medical condition. Patient was counseled about treatment plan, medications, possible side effects, patientverbalized understanding. All questions were answered to the best of my ability. This discharge took greater then 30 minutes in planning, reviewing documentation, counseling the patient, and discussing with other team members." ASSESSMENT ASSESSMENT Assessment Acute urinary retention Acute intractable abdominal pain likely due to above Bilateral hydronephrosis worse on right kidney Bilateral Hydroureter BPH status post TURP 8 years ago Hypertensive urgency Date of Service: Feb 14, 2025 Billing Provider: MYRON JEWELL MD Common Visit Codes: [id number] INP/OBS CARE(HIGH) ADAN BROWN RESIDENT Feb 14, 2025 12:01 MYRON JEWELL MD Feb 14, 2025 23:56
[2025-02-14 12:07] VITALS: BP 157/83; PULSE 69; TEMP 37
== END 2025-02-14 13:24 | disposition home or self-care (01) | DRG 694 ==
LOC: EDBD 15:06 → EDUNIT# 15:06 → ER 15:06 → OVERFLOW 21:08 → WEST WING 23:05
PROVIDERS: ADMIT Internal Medicine; ATTEND Internal Medicine
DX: N13.2 Hydronephrosis with renal and ureteral calculous obstruction (principal); H70.93 Unspecified mastoiditis, bilateral; J01.90 Acute sinusitis, unspecified; H66.93 Otitis media, unspecified, bilateral; I16.0 Hypertensive urgency; N32.89 Other specified disorders of bladder; E78.5 Hyperlipidemia, unspecified; I10 Essential (primary) hypertension; Z79.82 Long term (current) use of aspirin; Z79.899 Other long term (current) drug therapy; Z83.3 Family history of diabetes mellitus; Z90.79 Acquired absence of other genital organ(s)
CPT/HCPCS: 36415; 70450; 71045; 74176; 76775; 80048; 80053; 80076; 80307; 81001; 82962; 83735; 83880; 84154; 84443; 84484; 85025; 93005; 93306; 93886; 96365; 96375; 99291; 99292; G0378; J2405; J2470

== ENCOUNTER 2025-04-05 06:25 | Emergency (ER) | payer BC, MEDICARE ==
[~2025-04-05] VITALS: Ht 167.6 cm; Wt 63.2 kg
[~2025-04-05 06:25] MED LIST changes: +CIPR500T4 PO
--- NOTE | 2025-04-05 07:00 | ED.PDOC ---
General HPI Comments This is a 79 year old male presenting to the ED with chief complaint of inability to void. Patient reports that he had a Hi catheter removed last by Dr. Beatty, however, he had went home without a catheter to see if he is able to urinate on his own. Patient relays that he has only been able to dribble when urinating since then and believes he needs another catheter inserted. Patient denies any dysuria, hematuria, flank pain, abdominal pain, or fever. Chief Complaint: Urinary Time Seen by MD: 06:57 Primary Care Provider: FRANKIE Reviewed notes: Nurses Notes, Medications, Allergies Allergies: Coded Allergies: No Known Drug Allergy (Verified Allergy, Unknown, 12/01/22) Home Meds Active Scripts Ciprofloxacin Hcl (Ciprofloxacin Hcl) 500 Mg Tab, 1 TAB PO BID for 7 Days, #14 TAB Prov:ADAN BROWN 02/14/25 Tamsulosin Hcl (Tamsulosin Hcl) 0.4 Mg Cap, 1 CAP PO DAILY for 15 Days, #15 CAP 5 Refills Prov:ADAN BROWN 02/14/25 Spironolactone (Spironolactone) 25 Mg Tab, 1 TAB PO DAILY, #30 TAB 1 Refill Prov:JER HANNA MD 07/29/24 Potassium Chloride (Potassium Chloride ER) 20 Meq Tab, 20 MEQ PO DAILY for 30 Days, #30 TAB 1 Refill Prov:JER HANNA MD 07/29/24 Carvedilol (COREG) 12.5 Mg Tab, 12.5 MG PO Q12HR for 30 Days, #60 TAB Prov:RICHMOND LEIVA 03/07/24 Valsartan (Valsartan) 80 Mg Tab, 320 MG PO DAILY for 30 Days, #120 TAB Prov:RICHMOND LEIVA 03/06/24 Prazosin Hcl (Minipres) 1 Mg Cp, 1 MG PO Q12HR for 30 Days, #60 CAP Prov:RICHMOND LEIVA 03/06/24 Reported Medications Aspirin (Aspirin Low Dose) 81 Mg Tab, 1 TAB PO DAILY 07/25/24 Nifedipine (Nifedipine Er) 90 Mg Tab 07/25/24 Tamsulosin Hcl (Tamsulosin Hcl) 0.4 Mg Cap, CAP PO 07/25/24 Cholecalciferol (D3 5000) 5,000 Unit Cap, 1 CAP PO QWEEKLY for 84 Days, #12 03/05/24 Lovastatin (Lovastatin) 40 Mg Tab, 1 TAB PO HS 03/04/24 Information Source: Patient Mode of Arrival: Ambulatory Severity: Moderate Timing: Days Duration: Since onset Prehospital treatment: None Onset: Spontaneous Symptoms: Inability to void History of: BPH Penile discharge: None Modifying factors: None associated signs and symptoms: Inability to Void Past Medical History PAST MEDICAL HISTORY: High Lipids, HTN Past Medical History (Other): BPH Surgical History: Denies all surgeries Family History Family History: Reviewed,noncontributory to illness, Unknown Social History Smoker: Non-Smoker Alcohol: Denies ETOH Use Drugs: Denies Drug Use Lives In: Home Constitutional: denies: chills, diaphoresis, fatigue, fever, malaise, sweats, weakness, others EENTM: denies: blurred vision, double vision, ear bleeding, ear discharge, ear drainage, ear pain, ear ringing, eye pain, eye redness, hearing loss, mouth pain, mouth swelling, nasal discharge, nose bleeding, nose congestion, nose pain, photophobia, tearing, throat pain, throat swelling, voice changes, others Respiratory: denies: cough, hemoptysis, orthopnea, SOB at rest, shortness of breath, SOB with excertion, stridor, wheezing, others Cardiovascular: denies: chest pain, dizzy spells, diaphoresis, Dyspnea on exertion, edema, irregular heart beat, left arm pain, lightheadedness, palpitations, PND, syncope, others Gastrointestinal: denies: abdomen distended, abdominal pain, blood streaked bowels, constipated, diarrhea, dysphagia, difficulty swallowing, hematemesis, melena, nausea, poor appetite, poor fluid intake, rectal bleeding, rectal pain, vomiting, others Genitourinary: reports: others (Inability to void); denies: burning, dysuria, flank pain, frequency, hematuria, incontinence, penile discharge, penile sore, pain, testicle pain, testicle swelling, urgency Neurological: denies: dizziness, fainting, headache, left sided numbness, left sided weakness, numbness, paresthesia, pre-existing deficit, right sided numbness, right sided weakness, seizure, speech problems, tingling, tremors, weakness, others Musculoskeletal: denies: back pain, gout, joint pain, joint swelling, muscle pain, muscle stiffness, neck pain, others Integumetry: denies: bruises, change in color, change in hair/nails, dryness, laceration, lesions, lumps, rash, wounds, others Allergic/Immunocompromised: denies: Difficulty Healing, Frequent Infections, Hi ves, Itching, others Hematologic/Lymphatic: denies: anemia, blood clots, easy bleeding, easy bruising, swollen glands, others Endocrine: denies: excessive hunger, excessive sweating, excessive thirst, excessive urination, flushing, intolerance to cold, intolerance to heat, unexplained weight gain, unexplained weight loss, others Psychiatric: denies: anxiety, bipolar disorder, depression, hopeless, panic disorder, schizophrenia, sleepless, suicidal, others All Other Systems: Reviewed and Negative Physical Exam General Appearance: Moderate Distress, Normal HEENT: Normal ENT Inspection, Pharynx Normal, TMs Normal Neck: Full Range of Motion, Non-Tender, Normal, Normal Inspection Respiratory: Chest Non-Tender, Lungs Clear, No Accessory Muscle Use, No Respiratory Distress, Normal Breath Sounds Cardiovascular: No Edema, No JVD, No Murmur, No Gallop, Normal Peripheral Pulses, Regular Rate/Rhythm Breast Exam: Deferred Gastrointestinal: No Organomegaly, Non Tender, No Pulsatile Mass, Normal Bowel Sounds, Soft Genitalia: Deferred Pelvic: Deferred Rectal: Deferred Extremities: No calf tenderness, Normal capillary refill, Normal inspection, Normal range of motion, Non-tender, No pedal edema Musculoskeletal : Apperance: Normal Neurologic: Alert, telemarketing agent II-XII nml as Tested, No Motor Deficits, Normal Affect, Normal Mood, No Sensory Deficits Cerebellar Function: Normal Reflexes: Normal Skin: Dry, Normal Color, Warm Peripheral Pulses: 3+ Radial (R), 3+ Radial (L) Lymphatic: No Adenopathy Was a procedure done? Was a procedure done?: No Differential Diagnosis Kidney stone (Female): N/A Kidney stone (Male): N/A Penile/Scrotal: Urinary Retention X-Ray, Labs, Meds, VS Vital Signs Date Time Temp Pulse Resp B/P (MAP) Pulse Ox O2 Delivery O2 Flow Rate FiO2 04/05/25 06:27 97.6 97 16 124/91 95 97.6 Patient alert. Has problem urinating. Placed a Hi catheter. Vitals stable. Answering questions. Was given prescription of Bactrim. Explained to the patient. Was told to follow up with his primary care physician. Was told to come back if there is any problem. Time of 1ST Reevaluation: 07:56 Reevaluation 1ST: Unchanged Patient Education/Counseling: Diagnosis, Treatment Family Education/Counseling: No Family Present SEPSIS Sepsis Screen Date sepsis recognized/suspect: Apr 05, 2025 Time Sepsis recognized/suspect: 632 Recent Procedure: Yes On Antibiotic Therapy: No Respiratory Rate >20: No Heart Rate >90: Yes Temp<36 C (96.8 F) or >38.3 C: No SBP <90 or MAP <65 mmHG: No New Acute Mental Status Change: No Is the patient on CPAP, BIPAP,: No Physician Orders Insert Hi Catheter QSHIFT (04/05/25 07:01) Leg Bag (04/05/25 ) Vital Signs Date Time Temp Pulse Resp B/P (MAP) Pulse Ox O2 Delivery O2 Flow Rate FiO2 04/05/25 06:27 97.6 97 16 124/91 95 97.6 Departure 1 Departure Time of Disposition: 07:22 Impression: Primary Impression: Acute on chronic urinary retention Disposition: 01 HOME / SELF CARE / HOMELESS Condition: Good e-Prescriptions Sulfamethoxazole W/Trimethopri (Bactrim Ds Tablet) 1 Tab Tb 1 TAB PO BID for 7 Days, #14 TAB Prov: ENOC CARTER MD 04/05/25 Discharged With: Self Critical Care Note Critical Care Time?: No Stability Stability form required: No Heart Score Heart Score: Heart Score Response (Comments) Value History N/A 0 EKG N/A 0 Age N/A 0 Risk Factors N/A 0 Troponin N/A 0 Total 0 I personally scribed for ENOC CARTER MD ([email or web address]) on 04/05/25 at 07:00. Electronically submitted by Jones Quinn ([email or web address]). ENOC CARTER MD Apr 05, 2025 07:00
[2025-04-05] MEDS ORDERED: BACDST PO (07:23)
[2025-04-05 08:01] VITALS: BP 146/89; PULSE 63; RESP 16; TEMP 97.8; O2SAT 97
== END 2025-04-05 08:03 | disposition home or self-care (01) ==
LOC: ER 06:25
DX: R33.8 Other retention of urine (principal); E78.5 Hyperlipidemia, unspecified; I10 Essential (primary) hypertension; Z79.899 Other long term (current) drug therapy; Z79.82 Long term (current) use of aspirin
CPT/HCPCS: 51702; 99284; A4315